=== PATIENT | female | born 1945 | race Caucasian/White ===

== ENCOUNTER → 2016-12-29 | Outpatient (CLI) | payer MEDICARE, BC ==
[2016-12-29 12:49] LABS: CH 29.6; CHCM 31.1; HCT 40.2 % (34.0-46.0); HDW 2.67; HGB 13.1 gm/dL (11.4-16.0); Hypochromasia Slight; MCH 31.1 pg (25.0-35.0); MCHC 32.5 g/dL (31.0-37.0); MCV 95.7 fL (80.0-100.0); Mean Platelet Volume 7.7; RDW 13.5 % (11.5-15.5); WBC 9.1 k/uL (3.8-10.6)
== END | disposition home or self-care (01) ==
LOC: LABPAT 11:52
PROVIDERS: ATTEND Otolaryngology
DX: Z01.812 Encounter for preprocedural laboratory examination (principal)
CPT/HCPCS: 85027

== ENCOUNTER 2016-12-31 08:35 | Day surgery (SDC) | payer MEDICARE, BC ==
[2016-12-30 08:52] VITALS: BMI 25.3
--- NOTE | 2016-12-31 05:53 | HP ---
HISTORY AND PHYSICAL CHIEF COMPLAINT: Cystic lesions of the upper lip. HISTORY OF PRESENT ILLNESS: This patient is a 71-year-old female who presented to my office complaining of several cystic lesions of the upper lip which have been there for approximately 2 months. She states that they are not causing any pain and they have not been bleeding. She is a nonsmoker. At the time that she was seen in my office clinical examination of the oropharynx with attention to the upper lip reveals two 3 to 4 mm cystic lesions of the upper lip near the frenulum. It was recommended that the patient undergo excision of these lesions under general anesthesia. PAST MEDICAL HISTORY: Past medical history reveals that the patient has a known allergy to KEFLEX and IODINE. CURRENT MEDICATIONS: Current medications include: 1. Lexapro. 2. Estradiol. 3. Flexeril. 4. Synthroid. PREVIOUS SURGERIES: Previous surgeries include gastric bypass surgery, revision gastric bypass surgery, amputation of 2 fingers, multiple hand surgeries, cholecystectomy, tummy tuck, hysterectomy, oophorectomy, and duodenal switch. REVIEW OF SYSTEMS: Review of systems reveals that the cardiovascular system is negative. Respiratory system is negative. Gastrointestinal system is negative. Metabolic endocrine system is positive for hypothyroidism. The musculoskeletal/neurological system is positive for osteoarthritis and fibromyalgia. The remainder of the review of systems is unremarkable. PHYSICAL EXAMINATION: This patient is a 71-year-old female, who is alert and cooperative. HEENT EXAMINATION: Patient normocephalic. Tympanic membranes are normal. The middle ear space is free of any fluid or infection. Pupils are equal, round, and reactive to light and accommodation. Extraocular movements are within normal limits. Intranasal examination reveals moderate septal deviation with compensatory hypertrophy of the inferior turbinates. Examination of the oropharynx with attention to the upper lip reveals that the patient has two 3 to 4 mm cystic lesions on the mucosal side of the upper lip located near the frenulum of the upper lip. The remainder of the examination of the oropharynx, palpation on the neck, and cranial nerves 2 [id number] are all within normal limits. CHEST/CARDIOVASCULAR: Both lungs pierson are clear to percussion and auscultation. The patient is in regular sinus rhythm. S1 and S2, are present without evidence of any murmurs, S3s or S4s. Peripheral pulses are bilaterally symmetrical and within normal limits. ABDOMEN: There is no evidence of any masses, megaly or tenderness of the abdomen. Musculoskeletal/neurological are within normal limits. PELVIC/RECTAL EXAM: The pelvic rectal exam is deferred at this time because the patient has this done on a regular basis at her family physician's office. The remainder of the physical exam is essentially unremarkable. IMPRESSION: Impression is 3 to 4 mm cystic lesions of the mucous membrane side of the upper lip. PLAN: The patient is scheduled to undergo excision of cystic lesions of the mucous membrane of the upper lip under general anesthesia in the a.m. ATTENTION RNS IN THE PRE-SURGICAL AREA: I have not ordered any pre-surgical prophylactic antibiotics for this patient. If the pharmacy department since any pre-surgical prophylactic antibiotics to the presurgical area for this patient, they should be returned to the pharmacy department and that order should be cancelled. Please make sure that the patient's account is credited appropriately. The only medications that I have ordered for this patient to receive preoperatively is OFIRMEV 1000 mg IV to be given to the patient once an intravenous line had been established. I have discussed the risks, benefits and alternative therapies for the above-mentioned procedure and for both sedation/analgesia as well as necessary blood product administration, if indicated, as they pertain to this patient. The patient has indicated his or her understanding and acceptance of the risks and procedures discussed. MMODL / IJN: [id number] /
[~2016-12-31 08:35] MED LIST: LACTATED RINGERS 1,000 ML IV SCH; MIDAZOLAM 2 MG/2 ML VIAL IV PRN; Pre Op ABX Message 1 EACH MISC MISCELLANE ONE
[2016-12-31] MEDS ORDERED: LIDOCAINE 1% 20 ML VIAL (10MG/ML) FOR IV START INTRADERMA ONE (09:10)
[2016-12-31] MEDS ORDERED: ONDANSETRON 4 MG/2 ML VIAL IVP ONE (09:12)
[2016-12-31] MEDS ORDERED: DEXAMETHASONE SOD PHOSPHATE 10 MG/ML 1 ML VIAL IV ONE (09:14)
[2016-12-31] MEDS ORDERED: ACETAMINOPHEN IV (For NPO) 1,000 MG in EMPTY BAG 1 BAG IVPB ONE (09:45)
[2016-12-31] MEDS ORDERED: ePHEDrine SULFATE/0.9% NACL/PF 50 MG/5 ML SYRINGE IV ONE (10:19)
[2016-12-31] MEDS ORDERED: fentaNYL (PF) 50 MCG/ML 2 ML AMP ONE (10:19)
[2016-12-31] MEDS ORDERED: PROPOFOL 10 MG/ML 20 ML VIAL IV ONE (10:19)
[2016-12-31] MEDS ORDERED: SUCCINYLCHOLINE CHLORIDE 100 MG/5 ML SYR IV ONE (10:19)
[2016-12-31] MEDS ORDERED: MIDAZOLAM 2 MG/2 ML VIAL ONE (10:19)
[2016-12-31] MEDS ORDERED: LIDOCAINE 1% INJ 10MG/ML (20 ML MDV) ONE (10:19)
[2016-12-31] MEDS: HYDROmorphone 1 MG/ML 1 ML SYRINGE IVP PRN ×2 (11:33→11:43)
[2016-12-31 11:45] VITALS: TEMP 98.2
--- NOTE | 2016-12-31 11:45 | HP ---
HISTORY AND PHYSICAL CHIEF COMPLAINT: Cystic lesions of the upper lip. HISTORY OF PRESENT ILLNESS: This patient is a 71-year-old female who recently presented to my office complaining of having suspicious lesions of the upper lip which have been present for approximately 2 months. The patient states that the area is not causing any pain and there has not been any bleeding. She is a nonsmoker. At the time that the patient was seen in my office, examination of the oropharynx with attention to the upper lip reveals the patient who has 2 cystic-appearing lesions of the mucous membrane of the upper lip near the frenulum of the upper lip. It was recommended that the patient undergo excision of these lesions under general anesthesia. PAST MEDICAL HISTORY: Reveals that the patient has allergies to KEFLEX and IODINE. CURRENT MEDICATIONS: 1. Lexapro. 2. Estradiol. 3. Flexeril. 4. Synthroid. PREVIOUS SURGERIES: Include a gastric bypass, amputation of 2 fingers, multiple hand surgeries, gallbladder removal, revision of gastric bypass, tummy tuck, hysterectomy, oophorectomy, and duodenal switch. REVIEW OF SYSTEMS: Negative for the cardiovascular system. Respiratory system is negative. Gastrointestinal system is negative, metabolic endocrine system is positive for hypothyroidism. Musculoskeletal/neurological system is positive for osteoarthritis and fibromyalgia. The remainder of the review of systems is essentially unremarkable. PHYSICAL EXAM: HEENT: Patient is normocephalic. Tympanic membranes are normal. The middle ear spaces are free of any fluid or infection. Pupils are equal, round, and reactive to light and accommodation. Extraocular movements are within normal limits. Intranasal examination reveals moderate septal deviation with compensatory hypertrophy of the inferior turbinates. Examination of the oropharynx, palpation of the neck and cranial nerves 2 through 12, all within normal limits. CHEST/CARDIOVASCULAR: Both lung pierson are clear to percussion and auscultation. The patient is in regular sinus rhythm. S1 and S2 are present without evidence of any murmurs, S3s or S4s. Peripheral pulses are bilaterally symmetrical. ABDOMEN: There is no evidence of any masses, megaly or tenderness. Musculoskeletal and neurological are within normal limits. PELVIC/RECTAL EXAM: The pelvic/rectal exam is deferred at this time because the patient has this done on a regular basis at her family physician's office. The remainder of the physical exam is unremarkable. IMPRESSION: Cystic lesions of the mucosal side of the upper lip. PLAN: The patient is scheduled to undergo complete excision of the cystic lesions of the mucosal side of the upper lip under general anesthesia. Attention RNs in pre-surgical area, I have not ordered any pre-surgical prophylactic antibiotics for this patient. If the Pharmacy Department sends any pre-surgical prophylactic antibiotics for this patient to the to the presurgical area, please cancel that order, and return the medication to the Pharmacy Department and make sure that the patient's account is credited appropriately. The only medications that I have ordered for this patient to receive preoperatively is Ofirmev 1000 mg IV once an intravenous line had been established. I have discussed the risks, benefits and alternative therapies for the above-mentioned procedure and for both sedation/analgesia as well as necessary blood product administration, if indicated, as they pertain to this patient. The patient has indicated his or her understanding and acceptance of the risks and procedures discussed. LORENE / KAIN: [id number] /
[2016-12-31] MEDS ORDERED: HYDROmorphone 1 MG/ML 1 ML SYRINGE IVP ONE (12:03)
[2016-12-31] MEDS ORDERED: LACTATED RINGERS 1,000 ML IV ONE (12:17)
[2016-12-31 12:41] VITALS: BP 138/69; PULSE 78; RESP 16
--- NOTE | 2017-01-02 18:07 | OP ---
OPERATIVE REPORT DATE OF SURGERY: 12/31/2016 PREOPERATIVE DIAGNOSIS: Cystic lesions of the upper lip, one lesion 3-4 mm, second lesion approximately 3 mm. POSTOPERATIVE DIAGNOSIS: Cystic lesions of the upper lip, one lesion 3-4 mm, second lesion approximate 3 mm. Final pathology pending. ANESTHESIA: Anesthesia was general. OPERATIVE PROCEDURE: Excision of two cystic lesions of the upper lip. SURGEON: Dr. Arturo Peña. COMPLICATIONS: None. ESTIMATED BLOOD LOSS: Less than 5 mL. OPERATIVE PROCEDURE: Patient was placed on the operating table in supine position and after an uneventful induction endotracheal intubation satisfactory general anesthesia was obtained. It was elected not to inject the lesion site with any type of local anesthesia because of concern of the patient possibly biting her lip after surgery. Therefore, the patient was placed on the operating table in supine position. After uneventful induction and endotracheal intubation, satisfactory general anesthesia was obtained. Next the patient's upper lip was exposed in the usual and customary fashion and attention was redirected toward the larger lesion which was 3-4 mm and located just to the right of the frenulum of the upper lip. This area was excised in an elliptical fashion using a #64 [place] blade. The entire specimen was sent in formalin to pathology for permanent sectioning. Hemostasis was obtained using electrocautery. The wound defect was closed in a simple fashion and single layer using 5-0 rapid absorbing Vicryl in an interrupted buried fashion. Next, the same procedure was carried out on the inferior lesion which was approximately 3 mm in diameter and again using an elliptical fashion and a #69 [place] blade, the lesion was excised completely and was sent to the pathology department in formalin for study. Hemostasis again was obtained using electrocautery. Once again the wound defect was closed using 5-0 rapid absorbing Vicryl in a single interrupted flare. At this point, procedure was terminated. There were no intraoperative complications. Estimated blood loss less than 5 mL. The patient tolerated the procedure well and was returned to recovery room in satisfactory condition. Final pathology is pending. MMODL / IJN: [id number] /
== END 2016-12-31 12:55 | disposition home or self-care (01) ==
LOC: OR 08:35
PROVIDERS: ATTEND Otolaryngology
DX: K13.0 Diseases of lips (principal); E03.9 Hypothyroidism, unspecified; M79.7 Fibromyalgia; M19.90 Unspecified osteoarthritis, unspecified site; M06.9 Rheumatoid arthritis, unspecified; Z79.899 Other long term (current) drug therapy; Z88.1 Allergy status to other antibiotic agents; Z88.8 Allergy status to other drugs, medicaments and biological substances; Z98.84 Bariatric surgery status; Z89.029 Acquired absence of unspecified finger(s); Z90.710 Acquired absence of both cervix and uterus
CPT/HCPCS: 88305; 11440 ×2; J2250; J1100; J2405; J2001; J3010; J1170; J0131; J0330; J2704

== ENCOUNTER 2021-06-07 04:21 | Inpatient (IN) | payer BC, MEDICARE ==
[2021-06-07] MEDS ORDERED: SODIUM CHLORIDE 0.9% 1,000 ML IV STA (04:31)
[2021-06-07] MEDS ORDERED: HEPARIN SODIUM 1,000 UN/ML (10ML VL) IV ONE (04:41)
[2021-06-07] MEDS ORDERED: HEPARIN SODIUM 1,000 UN/ML (10ML VL) IV PRN (04:41)
[2021-06-07] MEDS ORDERED: MIDAZOLAM 1 MG/ML 5 ML VIAL IV STA (04:41)
[2021-06-07] MEDS: HEPARIN SOD,PORK IN 0.45% NACL 25,000 UNIT in 0.45% NACL 1 250ML.BAG IV SCH (04:51)
--- NOTE | 2021-06-07 04:57 | ED ---
General Adult HPI - General Chief complaint: Arrhythmia/Palpitations Stated complaint: Weakness Time Seen by Provider: 06/07/21 04:30 Source: patient, EMS Mode of arrival: EMS Limitations: no limitations - History of Present Illness Initial comments: Dictation was produced using [employer] dictation software. please excuse any grammatical, word or spelling errors. Chief Complaint: 75-year-old female past medical history of fibromyalgia, rheumatoid arthritis, osteoarthritis, gastric bypass with malabsorption syndrome presents emergency department for multiple episodes of syncope and chest pain. History of Present Illness: 75-year-old female she woke up with palpitations and chest pain. Patient states she walked to the bathroom. I'll try to ambulate she syncopized. She got up to try to move around the house when she syncopized on 2 separate occasions. Patient states that she does feel palpitations. She's been phoned unwell for the last 7 days. Denies any nausea or vomiting. She does not have any cardiac issues. She does not take any cardiac medications. She took a Flexeril last night she is prescribed Flexeril. States the pain is like a pressure to her anterior chest. His nonradiating. Feels a little clammy but denies any nausea. Patient states she has diarrhea constantly. Denies any black stools. No history of GI bleed or intracranial hemorrhage. No history of blood clots EMS brought the patient is concern for V. tach given their EKG machine interpretation. Local heart pressure for EMS. The ROS documented in this emergency department record has been reviewed and confirmed by me. Those systems with pertinent positive or negative responses have been documented in the HPI. All other systems are other negative and/or noncontributory. PHYSICAL EXAM: General Impression: Alert and oriented x3, lethargic HEENT: Normocephalic atraumatic, extra-ocular movements intact, pupils equal and reactive to light bilaterally, dry mucous membranes Cardiovascular: Irregularly irregular Chest: Able to complete full sentences, no retractions, no tachypnea Abdomen: abdomen soft, non-tender, non-distended, no organomegaly Musculoskeletal: Pulses present and equal in all extremities, no peripheral edema Motor: no focal deficits noted Neurological: CN II-XII grossly intact, no focal motor or sensory deficits noted Skin: Intact with no visualized rashes Psych: Normal affect and mood ED course: 75-year-old female presents emergency with palpitations, chest pain. She denies any cardiac history. Vital signs upon arrival are within acceptable limits however repeat vital signs shows heart rate of 165. Blood pressure 88/69. EKG shows A. fib with aberrancy. There is appear to be an irregularity with widening QRS. There is no old EKG for comparison. Patient is having active chest pain, hypertension and is ill-appearing. Carrdioversion indicated. Cardioversion was performed successful. Patient was cardioverted with 50 J synchronized repeat EKG shows sinus rhythm with axis. Clinically patient appears to be significantly improved. She states that her chest pain is improving. She was started on heparin. EKG interpretation: Ventricular rate 64, A. fib with RVR versus short runs of ventricular tachycardia. QRS 117, QTc 382 Repeat EKG after cardioversion shows sinus rhythm with a ventricular rate of 95, DE interval of 209, QRS 108, QTc 436 To evaluation obtained. Mild leukocytosis of 11.4 likely secondary to stress. Coag panel is unremarkable. Metabolic panel shows mild non-gap acidosis. Lactic acidosis 2.5. Troponin 0.095. Brain natruretic peptide of 1040. This is likely secondary to rate induced ischemia. Patient given 324 mg of chewable aspirin.. Evaluated bedside at 5:41 AM. She does have some pain over her left lateral ribs. She suspects that this is from the fall. She denies any head pain or neck pain. sHe does not recall falling. She states that there is a slight heaviness to her chest. Repeat EKG was performed showing no signs of active ischemia or infarction. She is on heparin. Case discussed cardiology who recommends the patient be started on amiodarone. Patient be admitted to [facility] hospitalist group. - Related Data Home Medications Medication Instructions Recorded Confirmed Cyanocobalamin [Vitamin B-12 1,000 mcg SQ Q14D 12/30/16 06/07/21 Injection] Cyclobenzaprine [Flexeril] 10 mg PO HS 12/30/16 06/07/21 Ergocalciferol (Vitamin D2) 100,000 unit PO MOFR 12/30/16 06/07/21 [Vitamin D2] Escitalopram [Lexapro] 20 mg PO DAILY 12/30/16 06/07/21 Fantasma Denney B.lactis 1 cap PO DAILY 12/30/16 06/07/21 [Probiotic] Levothyroxine Sodium [Synthroid] 25 mcg PO DAILY 12/30/16 06/07/21 Magnesium 200 mg PO DAILY PRN 12/30/16 06/07/21 Super Enzyme 1 tab PO DAILY 12/30/16 06/07/21 estradioL [Estrace] 1 mg PO DAILY 12/30/16 06/07/21 Cholecalciferol [Vitamin D3 (25 25 mcg PO DAILY 06/07/21 06/07/21 Mcg = 1000 Iu)] Vitamin A Acetate [Vitamin A] 10,000 units PO DAILY 06/07/21 06/07/21 calcitrioL [Calcitriol] 0.5 mcg PO BID 06/07/21 06/07/21 Previous Rx's Medication Instructions Recorded Amiodarone [Cordarone] 200 mg PO DAILY 30 Days #30 tab 06/08/21 Apixaban [Eliquis] 5 mg PO BID 30 Days #60 tab 06/08/21 Metoprolol Tartrate [Lopressor] 25 mg PO BID 30 Days #60 tab 06/08/21 Allergies Allergy/AdvReac Type Severity Reaction Status Date / Time cephalexin [From Keflex] AdvReac Rash/Hives Verified 06/07/21 07:26 iodine AdvReac Rash/Hives Verified 06/07/21 07:26 shellfish derived [Shellfish] AdvReac Rash/Hives Verified 06/07/21 07:26 Review of Systems ROS Statement: Those systems with pertinent positive or pertinent negative responses have been documented in the HPI. ROS Other: All systems not noted in ROS Statement are negative. Past Medical History Past Medical History: Cancer, Fibromyalgia, Osteoarthritis (OA), Rheumatoid Arthritis (RA), Thyroid Disorder Additional Past Medical History / Comment(s): Cervical CA years ago; Osteoporosis History of Any Multi-Drug Resistant Organisms: MRSA Date of last positivie culture/infection: 2007 MDRO Source:: R index finger L baby finger Past Surgical History: Appendectomy, Bariatric Surgery, Cholecystectomy, Hysterectomy, Joint Replacement, Orthopedic Surgery, Tonsillectomy Additional Past Surgical History / Comment(s): Gastric Bypass, & revision; Duodenal Swicth; Tummy Tuck, numerous hand surgeries; finger joints replaced, 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 waking up Past Psychological History: Depression Smoking Status: Never smoker Past Alcohol Use History: Rare Past Drug Use History: None Reported - Past Family History Father Family Medical History: Cancer General Exam Limitations: no limitations Course Vital Signs 06/07/21 06/07/21 06/07/21 04:27 04:35 04:50 Temperature 97.9 F Pulse Rate 70 165 H 86 Respiratory 22 22 16 Rate Blood Pressure 124/94 88/69 111/53 O2 Sat by Pulse 98 97 100 Oximetry 06/07/21 06/07/21 06/07/21 05:43 06:35 07:45 Temperature Pulse Rate 79 79 79 Respiratory 18 18 18 Rate Blood Pressure 129/66 109/76 108/63 O2 Sat by Pulse 100 94 L 99 Oximetry Medical Decision Making - Lab Data Result diagrams: 06/08/21 07:44 06/08/21 07:44 Lab Results 06/07/21 06/07/21 06/07/21 Range/Units 04:30 04:30 04:30 WBC 11.4 H (3.8-10.6) k/uL RBC 4.07 (3.80-5.40) m/uL Hgb 12.2 (11.4-16.0) gm/dL Hct 39.0 (34.0-46.0) % MCV 95.7 (80.0-100.0) fL MCH 29.9 (25.0-35.0) pg MCHC 31.2 (31.0-37.0) g/dL RDW 13.6 (11.5-15.5) % Plt Count 226 (150-450) k/uL MPV 8.8 Neutrophils % 65 % Lymphocytes % 25 % Monocytes % 5 % Eosinophils % 3 % Basophils % 1 % Neutrophils # 7.4 (1.3-7.7) k/uL Lymphocytes # 2.9 (1.0-4.8) k/uL Monocytes # 0.5 (0-1.0) k/uL Eosinophils # 0.3 (0-0.7) k/uL Basophils # 0.1 (0-0.2) k/uL Hypochromasia Slight PT 10.9 (9.0-12.0) sec INR 1.0 (<1.2) APTT 20.7 L (22.0-30.0) sec Sodium 141 (137-145) mmol/L Potassium 4.0 (3.5-5.1) mmol/L Chloride 110 H (98-107) mmol/L Carbon Dioxide 21 L (22-30) mmol/L Anion Gap 10 mmol/L BUN 17 (7-17) mg/dL Creatinine 0.78 (0.52-1.04) mg/dL Est GFR (CKD-EPI)AfAm 87 (>60 ml/min/1.73 sqM) Est GFR (CKD-EPI)NonAf 75 (>60 ml/min/1.73 sqM) Glucose 107 H (74-99) mg/dL Lactic Ac Sepsis Rflx Plasma Lactic Acid Rigoberto (0.7-2.0) mmol/L Calcium 8.5 (8.4-10.2) mg/dL Magnesium 1.6 (1.6-2.3) mg/dL Total Bilirubin 0.6 (0.2-1.3) mg/dL AST 32 (14-36) U/L ALT 15 (4-34) U/L Alkaline Phosphatase 53 (38-126) U/L Troponin I (0.000-0.034) ng/mL NT-Pro-B Natriuret Pep pg/mL Total Protein 6.3 (6.3-8.2) g/dL Albumin 3.6 (3.5-5.0) g/dL Coronavirus (PCR) (Not Detectd) 06/07/21 06/07/21 06/07/21 Range/Units 04:30 04:30 04:30 WBC (3.8-10.6) k/uL RBC (3.80-5.40) m/uL Hgb (11.4-16.0) gm/dL Hct (34.0-46.0) % MCV (80.0-100.0) fL MCH (25.0-35.0) pg MCHC (31.0-37.0) g/dL RDW (11.5-15.5) % Plt Count (150-450) k/uL MPV Neutrophils % % Lymphocytes % % Monocytes % % Eosinophils % % Basophils % % Neutrophils # (1.3-7.7) k/uL Lymphocytes # (1.0-4.8) k/uL Monocytes # (0-1.0) k/uL Eosinophils # (0-0.7) k/uL Basophils # (0-0.2) k/uL Hypochromasia PT (9.0-12.0) sec INR (<1.2) APTT (22.0-30.0) sec Sodium (137-145) mmol/L Potassium (3.5-5.1) mmol/L Chloride (98-107) mmol/L Carbon Dioxide (22-30) mmol/L Anion Gap mmol/L BUN (7-17) mg/dL Creatinine (0.52-1.04) mg/dL Est GFR (CKD-EPI)AfAm (>60 ml/min/1.73 sqM) Est GFR (CKD-EPI)NonAf (>60 ml/min/1.73 sqM) Glucose (74-99) mg/dL Lactic Ac Sepsis Rflx Plasma Lactic Acid Rigoberto 2.5 H* (0.7-2.0) mmol/L Calcium (8.4-10.2) mg/dL Magnesium (1.6-2.3) mg/dL Total Bilirubin (0.2-1.3) mg/dL AST (14-36) U/L ALT (4-34) U/L Alkaline Phosphatase (38-126) U/L Troponin I 0.095 H* (0.000-0.034) ng/mL NT-Pro-B Natriuret Pep 1040 pg/mL Total Protein (6.3-8.2) g/dL Albumin (3.5-5.0) g/dL Coronavirus (PCR) (Not Detectd) 06/07/21 06/07/21 Range/Units 05:15 05:36 WBC (3.8-10.6) k/uL RBC (3.80-5.40) m/uL Hgb (11.4-16.0) gm/dL Hct (34.0-46.0) % MCV (80.0-100.0) fL MCH (25.0-35.0) pg MCHC (31.0-37.0) g/dL RDW (11.5-15.5) % Plt Count (150-450) k/uL MPV Neutrophils % % Lymphocytes % % Monocytes % % Eosinophils % % Basophils % % Neutrophils # (1.3-7.7) k/uL Lymphocytes # (1.0-4.8) k/uL Monocytes # (0-1.0) k/uL Eosinophils # (0-0.7) k/uL Basophils # (0-0.2) k/uL Hypochromasia PT (9.0-12.0) sec INR (<1.2) APTT (22.0-30.0) sec Sodium (137-145) mmol/L Potassium (3.5-5.1) mmol/L Chloride (98-107) mmol/L Carbon Dioxide (22-30) mmol/L Anion Gap mmol/L BUN (7-17) mg/dL Creatinine (0.52-1.04) mg/dL Est GFR (CKD-EPI)AfAm (>60 ml/min/1.73 sqM) Est GFR (CKD-EPI)NonAf (>60 ml/min/1.73 sqM) Glucose (74-99) mg/dL Lactic Ac Sepsis Rflx Y Plasma Lactic Acid Rigoberto (0.7-2.0) mmol/L Calcium (8.4-10.2) mg/dL Magnesium (1.6-2.3) mg/dL Total Bilirubin (0.2-1.3) mg/dL AST (14-36) U/L ALT (4-34) U/L Alkaline Phosphatase (38-126) U/L Troponin I (0.000-0.034) ng/mL NT-Pro-B Natriuret Pep pg/mL Total Protein (6.3-8.2) g/dL Albumin (3.5-5.0) g/dL Coronavirus (PCR) Not Detected (Not Detectd) Critical Care Time Critical Care Time: Yes Total Critical Care Time: 33 Disposition Clinical Impression: Syncope, Tachyarrhythmia Disposition: ADMITTED IP TO THIS [facility] Condition: Critical
[2021-06-07 05:03] LABS: Basophils # (A) 0.1 k/uL (0-0.2); Basophils % (A) 1 %; Eosinophils # (A) 0.3 k/uL (0-0.7); Eosinophils % (A) 3 %; HGB 12.2 gm/dL (11.4-16.0); Hypochromasia Slight; Lymphocytes # (A) 2.9 k/uL (1.0-4.8); Lymphocytes % (A) 25 %; MCH 29.9 pg (25.0-35.0); MCHC 31.2 g/dL (31.0-37.0); MCV 95.7 fL (80.0-100.0); Mean Platelet Volume 8.8; Monocytes # (A) 0.5 k/uL (0-1.0); Monocytes % (A) 5 %; Neutrophils # (A) 7.4 k/uL (1.3-7.7); Neutrophils % (A) 65 %; Platelet Count 226 k/uL (150-450); RBC 4.07 m/uL (3.80-5.40); RDW 13.6 % (11.5-15.5); WBC 11.4 k/uL (3.8-10.6)
[2021-06-07 05:17] LABS: Albumin 3.6 g/dL (3.5-5.0); Calcium 8.5 mg/dL (8.4-10.2); Magnesium 1.6 mg/dL (1.6-2.3); Total Bilirubin 0.6 mg/dL (0.2-1.3); Total Protein 6.3 g/dL (6.3-8.2)
[2021-06-07 05:18] LABS: Partial Thromboplastin Time 20.7 sec (22.0-30.0); Prothrombin Time 10.9 sec (9.0-12.0)
--- NOTE | 2021-06-07 05:25 | XR ---
EXAMINATION TYPE: XR chest 1V portable DATE OF EXAM: 06/07/2021 COMPARISON: NONE HISTORY: Syncope TECHNIQUE: Single view FINDINGS: There is no failure nor confluent pneumonic infiltrate. Costophrenic angles are clear. Bony thorax is intact. There are chest leads. There is slight increased interstitial markings. IMPRESSION: Mild pulmonary fibrosis. Normal heart. No acute lung disease.
[2021-06-07] MEDS ORDERED: ASPIRIN 81 MG PO STA (05:36)
[2021-06-07] MEDS ORDERED: ONDANSETRON 4 MG/2 ML VIAL IVP PRN (05:43)
[2021-06-07] MEDS ORDERED: NALOXONE 0.4 MG/ML 1 ML VIAL IV PRN (05:43)
[2021-06-07] MEDS ORDERED: DEXTROSE 5% IN WATER 100 ML with AMIODARONE 150 MG IV ONE (05:45)
[2021-06-07] MEDS ORDERED: SODIUM CHLORIDE 0.9% 1,000 ML IV SCH (05:45)
[2021-06-07] MEDS ORDERED: AMIODARONE 360 MG in DEXTROSE 5% IN WATER 200 ML IV ONE ×2 (05:54)
[2021-06-07] MEDS ORDERED: AMIODARONE IN DEXTROSE,ISO-OSM 150 MG/100 ML PLAST..BAG IV ONE (06:01)
--- NOTE | 2021-06-07 06:41 | CT ---
EXAMINATION TYPE: CT brain cspine wo con DATE OF EXAM: 06/07/2021 COMPARISON: None HISTORY: fall CT DLP: 1405.1 mGycm Automated exposure control for dose reduction was used. Exam performed with no contrast. Ventricles have normal size. There is no mass effect or midline shift. There is no sign of intracrani al hemorrhage. The calvarium is intact. There is no evidence of cerebral edema. Skull base is intact. There is normal aeration of the mastoid sinuses. Cervical vertebra have fairly normal alignment. There is mild degenerative disc space narrowing throu ghout the cervical spine. Facet joints are intact. There is mild spurring of the endplates. Preverteb ral soft tissues are intact. There is no compression fracture. IMPRESSION: Cervical multilevel spondylotic changes. No fracture. Negative CT scan of the brain. No evidence of traumatic injury.
--- NOTE | 2021-06-07 06:43 | XR ---
EXAMINATION TYPE: XR ribs LT DATE OF EXAM: 06/07/2021 COMPARISON: NONE HISTORY: Rib pain. Fall. TECHNIQUE: 2 views FINDINGS: There is no pleural effusion or pneumothorax. Left lung is clear of infiltrate. There is no evidence of a rib fracture. Costophrenic angle is clear. IMPRESSION: Negative left rib exam. No fracture.
[2021-06-07] MEDS ORDERED: PANTOPRAZOLE 40 MG/10 ML VIAL IV SCH (09:00)
[2021-06-07] MEDS ORDERED: FAMOTIDINE 20 MG/2 ML VIAL IV SCH (09:00)
--- NOTE | 2021-06-07 10:35 | P.HPIM ---
History of Present Illness This is a pleasant 75 years old female with past medical history of Fibromyalgia, Osteoarthritis , Rheumatoid Arthritis , Cervical CA years ago; Osteoporosis, hypothyroidism Presents because of syncope, recurrent about 3 times Patient woke up to 3:00 in the morning feeling with little chest pain and diffic ulty breathing, she went to the restroom but she fell on her way and passed out, and this happened for a second time after she woke up. After finishing her toileting she had another episode of syncope and she was on the floor for about an hour before her find her and called the ambulance for her. She stated that she fell on her knees and on her left side but currently she does not complain of from any pain and tenderness. Her chest pain was about 7/10, central nonradiating, felt like heaviness Patient has chronic diarrhea after gastric bypass surgeries in 1994. She denies any dysuria or urgency. She has mild headache 1 week , she denies limb weakness or numbness. However she feels generally weak. She denies smoking, alcohol or illicit drugs She was slightly hypotensive in the emergency room 88/69, currently blood pressure 109/76. Patient is afebrile. Labs showing mild leukocytosis (0.4, INR is 1.0, electrolytes and creatinine are normal. Lactic acid is elevated 2.5, glucose is slightly up 107. Liver enzymes normal. Elevated troponin 0.09. ProBNP 1040. Coronavirus DICTATED. Chest x-ray: No acute process. Mild pulmonary fibrosis. She had negative CT of the brain for traumatic injury or acute process. And CT of the cervical spine showed multilevel spondylitic changes with no fracture. rib X-ray: No fracture Patient in ED was having active chest pain, hypertension and is ill-appearing. Carrdioversion indicated. Cardioversion was performed successful. Patient was cardioverted with 50 J synchronized repeat EKG shows sinus rhythm with axis. Clinically patient appears to be significantly improved. She states that her chest pain is improving. She was started on heparin. EKG interpretation: Ventricular rate 64, A. fib with RVR versus short runs of ventricular tachycardia. QRS 117, QTc 382 Repeat EKG after cardioversion shows sinus rhythm with a ventricular rate of 95, UT interval of 209, QRS 108, QTc 436 She received normal saline, started on heparin drip and amiodarone drip per Rn Cardiovascular recommendation Review of Systems CONSTITUTIONAL: No fever, no malaise, no fatigue. HEENT: No recent visual problems or hearing problems. Denied any sore throat. CARDIOVASCULAR: No orthopnea, PND, no palpitations, no syncope. PULMONARY: No shortness of breath, no cough, no hemoptysis. GASTROINTESTINAL: No diarrhea, no nausea, no vomiting, no abdominal pain. Normoactive bowel sounds. NEUROLOGICAL: No headaches, no weakness, no numbness. HEMATOLOGICAL: Denies any bleeding or petechiae. GENITOURINARY: Denies any burning micturition, frequency, or urgency. MUSCULOSKELETAL/RHEUMATOLOGICAL: Denies any joint pain, swelling, or any muscle pain. ENDOCRINE: Denies any polyuria or polydipsia. Past Medical History Past Medical History: Cancer, Fibromyalgia, Osteoarthritis (OA), Rheumatoid Arthritis (RA), Thyroid Disorder Additional Past Medical History / Comment(s): Cervical CA years ago; Osteoporosis History of Any Multi-Drug Resistant Organisms: MRSA Date of last positivie culture/infection: 2007 MDRO Source:: R index finger L baby finger Past Surgical History: Appendectomy, Bariatric Surgery, Cholecystectomy, Hysterectomy, Joint Replacement, Orthopedic Surgery, Tonsillectomy Additional Past Surgical History / Comment(s): Gastric Bypass, & revision; Duodenal Swicth; Tummy Tuck, numerous hand surgeries; finger joints replaced, 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 waking up Past Psychological History: Depression Smoking Status: Never smoker Past Alcohol Use History: Rare Past Drug Use History: None Reported - Past Family History Father Family Medical History: Cancer Medications and Allergies Home Medications Medication Instructions Recorded Confirmed Type Cyanocobalamin [Vitamin B-12 1,000 mcg SQ Q14D 12/30/16 06/07/21 History Injection] Cyclobenzaprine [Flexeril] 10 mg PO HS 12/30/16 06/07/21 History Ergocalciferol (Vitamin D2) 100,000 unit PO MOFR 12/30/16 06/07/21 History [Vitamin D2] Escitalopram [Lexapro] 20 mg PO DAILY 12/30/16 06/07/21 History L.acidoph,Paracasei, B.lactis 1 cap PO DAILY 12/30/16 06/07/21 History [Probiotic] Levothyroxine Sodium [Synthroid] 25 mcg PO DAILY 12/30/16 06/07/21 History Magnesium 200 mg PO DAILY PRN 12/30/16 06/07/21 History Super Enzyme 1 tab PO DAILY 12/30/16 06/07/21 History estradioL [Estrace] 1 mg PO DAILY 12/30/16 06/07/21 History Cholecalciferol [Vitamin D3 (25 25 mcg PO DAILY 06/07/21 06/07/21 History Mcg = 1000 Iu)] Vitamin A Acetate [Vitamin A] 10,000 units PO DAILY 06/07/21 06/07/21 History calcitrioL [Calcitriol] 0.5 mcg PO BID 06/07/21 06/07/21 History Allergies Allergy/AdvReac Type Severity Reaction Status Date / Time cephalexin [From Keflex] AdvReac Rash/Hives Verified 06/07/21 07:26 iodine AdvReac Rash/Hives Verified 06/07/21 07:26 shellfish derived [Shellfish] AdvReac Rash/Hives Verified 06/07/21 07:26 Physical Exam Vitals: Vital Signs Temp Pulse Resp BP Pulse Ox 06/07/21 06:35 79 18 109/76 94 L 06/07/21 05:43 79 18 129/66 100 06/07/21 04:50 86 16 111/53 100 06/07/21 04:35 165 H 22 88/69 97 06/07/21 04:27 97.9 F 70 22 124/94 98 Intake and Output 06/06/21 06/07/21 06/07/21 22:59 06:59 14:59 Other: Weight 56.699 kg -GENERAL: The patient is alert and oriented x3, not in any acute distress. Well developed, well nourished. Generally weak HEENT: Pupils are round and equally reacting to light. EOMI. No scleral icterus. No conjunctival pallor. Normocephalic, atraumatic. No pharyngeal erythema. No thyromegaly. CARDIOVASCULAR: S1 and S2 present. No murmurs, rubs, or gallops. PULMONARY: Chest is clear to auscultation, no wheezing or crackles. ABDOMEN: Soft, nontender, nondistended, normoactive bowel sounds. No palpable organomegaly. MUSCULOSKELETAL: No joint swelling or deformity. EXTREMITIES: No cyanosis, clubbing, or pedal edema. NEUROLOGICAL: Gross neurological examination did not reveal any focal deficits. SKIN: No rashes. No petechiae Results CBC & Chem 7: 06/07/21 04:30 06/07/21 04:30 Labs: Abnormal Lab Results - Last 24 Hours (Table) 06/07/21 06/07/21 06/07/21 Range/Units 04:30 04:30 04:30 WBC 11.4 H (3.8-10.6) k/uL APTT 20.7 L (22.0-30.0) sec Chloride 110 H (98-107) mmol/L Carbon Dioxide 21 L (22-30) mmol/L Glucose 107 H (74-99) mg/dL Plasma Lactic Acid Rigoberto (0.7-2.0) mmol/L Troponin I (0.000-0.034) ng/mL 06/07/21 06/07/21 Range/Units 04:30 04:30 WBC (3.8-10.6) k/uL APTT (22.0-30.0) sec Chloride (98-107) mmol/L Carbon Dioxide (22-30) mmol/L Glucose (74-99) mg/dL Plasma Lactic Acid Rigoberto 2.5 H* (0.7-2.0) mmol/L Troponin I 0.095 H* (0.000-0.034) ng/mL Assessment and Plan Assessment: Chest pain with elevated troponin suspicious for non-STEMI Short period of A. fib and RVR versus ventricular tachycardia status post cardioversion in the emergency room. History of rheumatoid arthritis History of osteoarthritis History of fibromyalgia History of cervical cancer Osteoporosis Hypothyroidism History of depression, not an active issue Plan: this is a pleasant 75 years old female who presents with non-STEMI, and tachyarrhythmia Continue with amiodarone Continue with heparin drip Start patient on baby aspirin 81 mg, check lipid profile. Cardiology consult Labs and medication were reviewed.. Continue same treatment. Continue with symptomatic treatment. Resume home medication. Monitor lytes and vitals. DVT and GI prophylaxis. Further recommendations depends on the clinical course of the patient DVT prophylaxis: Subcutaneous heparin GI Prophylaxis: Pepcid PT/OT: Pending Prognosis is guarded
[2021-06-07] MEDS: NITROGLYCERIN SL TABS 0.4 MG TAB SUBLINGUAL ONE ×3 (11:04→11:18)
[2021-06-07] MEDS ORDERED: MAGNESIUM OXIDE 400 MG TAB PO PRN (11:19)
[2021-06-07] MEDS: ESCITALOPRAM 20 MG TAB PO SCH (11:33)
[2021-06-07] MEDS ORDERED: NITROGLYCERIN-D5W PMX 50 MG in DEXTROSE/WATER 1 250ML.BAG IV SCH (12:00)
[2021-06-07] MEDS: AMIODARONE 450 MG in DEXTROSE 5% IN WATER 250 ML IV SCH ×2 (12:15)
[2021-06-07] MEDS: METOPROLOL TARTRATE 25 MG TAB PO SCH ×2 (13:26→21:46)
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
[2021-06-07] MEDS ORDERED: ALPRAZolam 0.5 MG TAB PO PRN (14:31)
[2021-06-07] MEDS ORDERED: ASPIRIN 325 MG TAB PO STA (14:31)
[2021-06-07] MEDS ORDERED: ATORVASTATIN 80 MG TAB PO STA (14:31)
[2021-06-07] MEDS ORDERED: SODIUM CHLORIDE 0.9% 1,000 ML in EMPTY BAG 1 BAG IV ONE (14:31)
[2021-06-07] MEDS ORDERED: LIDOCAINE 1% INJ 10MG/ML (20 ML MDV) ONE (14:59)
[2021-06-07] MEDS ORDERED: VERAPAMIL 2.5 MG/ML 2 ML AMP ONE (14:59)
[2021-06-07] MEDS ORDERED: fentaNYL (PF) 50 MCG/ML 2 ML AMP ONE (15:01)
[2021-06-07] MEDS ORDERED: IV FLUID CONTINUATION 1,000 ML IV ONE (15:05)
[2021-06-07] MEDS ORDERED: diphenhydrAMINE 50 MG/ML 1 ML VIAL ONE (15:19)
[2021-06-07] MEDS ORDERED: methylPREDNISolone SOD SUCCI 125 MG/2 ML VIAL ONE (15:23)
[2021-06-07] MEDS ORDERED: methylPREDNISolone SOD SUCCI 125 MG/2 ML VIAL IV ONE (15:25)
[2021-06-07] MEDS ORDERED: diphenhydrAMINE 50 MG/ML 1 ML VIAL IVP ONE (15:26)
[2021-06-07] MEDS ORDERED: fentaNYL (PF) 50 MCG/ML 2 ML AMP IV ONE (15:37)
[2021-06-07] MEDS ORDERED: MIDAZOLAM 2 MG/2 ML VIAL IV ONE (15:37)
[2021-06-07] MEDS ORDERED: LIDOCAINE 1% INJ 10MG/ML (20 ML MDV) SQ ONE (15:40)
[2021-06-07] MEDS ORDERED: VERAPAMIL SYRINGE (5 MG/10 ML) INTRAARTER ONE (15:41)
[2021-06-07] MEDS ORDERED: IOPAMIDOL-370 125ML BTL INJ ONE ×2 (15:52)
--- NOTE | 2021-06-07 16:09 | P.CARDCATH ---
Description of Procedure: PROCEDURES PERFORMED: Left heart catheterization, left ventriculogram, bilateral coronary angiography INDICATION: Non-STEMI CONSENT:I have discussed the risks, benefits and alternative therapies for the above-mentioned procedure and for both sedation/analgesia as well as necessary blood product administration, if indicated, as they pertain to this patient. The patient has indicated understanding and acceptance of the risks and procedures discussed. PROCEDURE: After the risks, benefits and alternatives of the above mentioned p rocedure explained in detail with the patient, informed consent was obtained. Patient was taken to the catheterization lab and prepped and draped in usual fashion. 1% lidocaine was used to anesthetize the right radial artery. A 6- Yemeni sheath was placed in the right radial artery using modified Seldinger technique. Left coronary angiography was performed with a 5-Yemeni JL 3.5 catheter and right coronary angiography was performed with a 5-Yemeni JR5 catheter in various views. A 5-Yemeni FR5 catheter was inserted into the left ventricle and pressure measurements were obtained. A 6-Yemeni angled pigtail catheter was inserted in the left ventricle and a left ventriculogram was performed with power injection in the HARGROVE projection. The right radial sheath was removed and a TR band was placed with hemostasis achieved. The patient tolerated the procedure well. Patient was transported back to the post catheterization holding area in stable condition. Conscious Sedation: Patient was monitored under the direct supervision of vision of myself for conscious sedation using Versed and fentanyl for a total duration of 16 minutes HEMODYNAMICS: Aorta: 124/76 LV: 122/6, LVEDP 17 Left ventriculogram: Normal ejection fraction 60-65%, 1-2+ mitral regurgitation, no significant gradient with pullback across the aortic valve SELECTIVE CORONARY ARTERIOGRAPHY: LEFT MAIN: The left main is a large caliber vessel which bifurcates into the LAD and circumflex. There is no significant stenosis. LEFT ANTERIOR DESCENDING CORONARY ARTERY: LAD is a large caliber vessel which wraps around to the apex. There is no significant stenosis. LEFT CIRCUMFLEX CORONARY ARTERY: Left circumflex is a moderate caliber vessel without significant stenosis. RIGHT CORONARY ARTERY: The right coronary artery is a large caliber vessel which gives off a PDA and PLV branch and is the dominant vessel. There is no significant stenosis. FINAL IMPRESSION: 1. Normal coronary arteries as described above. 2. Normal left sided filling pressures PLAN: 1. Aggressive risk factor modification per most recent ACC/AHA guidelines. 2. Even some of her symptoms of syncope, lightheadedness, new-onset atrial f ibrillation and mildly elevated troponins further workup to rule out pulmonary embolism.
[2021-06-07] MEDS: SODIUM CHLORIDE 0.9% 1,000 ML IV SCH (16:30)
[2021-06-07] MEDS ORDERED: RX INFO: IV CONTRAST WAS GIVEN 1 EACH MISC MISCELLANE PRN (17:27)
[2021-06-07] MEDS ORDERED: CYCLOBENZAPRINE 10 MG TAB PO SCH (21:00)
[2021-06-07] MEDS: ALPRAZolam 0.25 MG TAB PO PRN (21:46)
[2021-06-08] MEDS: AMIODARONE 450 MG in DEXTROSE 5% IN WATER 250 ML IV SCH ×2 (02:59)
[2021-06-08] MEDS: ALPRAZolam 0.25 MG TAB PO PRN (05:03)
[2021-06-08] MEDS: HEPARIN SOD,PORK IN 0.45% NACL 25,000 UNIT in 0.45% NACL 1 250ML.BAG IV SCH (05:16)
[2021-06-08] MEDS ORDERED: LEVOTHYROXINE 25 MCG TAB PO SCH (06:00)
[2021-06-08] MEDS ORDERED: HEPARIN SODIUM,PORCINE 10,000 UNIT in SODIUM CHLORIDE 0.9% 1,000 ML IRRIGATION PRN (07:00)
[2021-06-08] MEDS ORDERED: HEPARIN SODIUM,PORCINE 2,500 UNIT in SODIUM CHLORIDE 0.9% 250 ML IRRIGATION PRN (07:00)
[2021-06-08] MEDS: METOPROLOL TARTRATE 25 MG TAB PO SCH (08:29)
[2021-06-08] MEDS: ESCITALOPRAM 20 MG TAB PO SCH (08:29)
[2021-06-08] MEDS: SODIUM CHLORIDE 0.9% 1,000 ML IV SCH (08:31)
[2021-06-08 08:34] LABS: Basophils % (A) 0 %; Eosinophils % (A) 0 %; HCT 33.9 % (34.0-46.0); HGB 10.7 gm/dL (11.4-16.0); Hypochromasia Slight; Lymphocytes % (A) 27 %; MCH 30.5 pg (25.0-35.0); MCHC 31.6 g/dL (31.0-37.0); MCV 96.6 fL (80.0-100.0); Mean Platelet Volume 8.9; Monocytes # (A) 0.3 k/uL (0-1.0); Monocytes % (A) 4 %; Neutrophils # (A) 4.9 k/uL (1.3-7.7); Neutrophils % (A) 67 %; Platelet Count 167 k/uL (150-450); RBC 3.51 m/uL (3.80-5.40); RDW 14.2 % (11.5-15.5); WBC 7.4 k/uL (3.8-10.6)
[2021-06-08 08:37] LABS: African American GFR (CKD) >90 (>60 ml/min/1.73 sqM); Anion Gap 5 mmol/L; Blood Urea Nitrogen 13 mg/dL (7-17); Carbon Dioxide 18 mmol/L (22-30); Chloride 116 mmol/L (98-107); Glucose 160 mg/dL (74-99); Magnesium 1.7 mg/dL (1.6-2.3); Non-African American GFR(CKD) 86 (>60 ml/min/1.73 sqM); Potassium 3.8 mmol/L (3.5-5.1); Sodium 139 mmol/L (137-145)
[2021-06-08 08:38] VITALS: RESP 18
[2021-06-08 08:38] LABS: Calcium 7.7 mg/dL (8.4-10.2)
[2021-06-08] MEDS ORDERED: VITAMIN A 10,000 UNIT (3000 MCG) CAPSULE PO SCH (09:00)
[2021-06-08] MEDS ORDERED: CHOLECALCIFEROL 25 MCG (1000 IU) TABLET PO SCH (09:00)
[2021-06-08] MEDS ORDERED: AMIODARONE 200 MG TAB PO SCH (09:00)
[2021-06-08] MEDS ORDERED: LACTOBACILLUS ACIDOPH & BULGAR 1 EACH PACKET PO SCH (09:00)
[2021-06-08] MEDS ORDERED: [UNRECOGNIZED DRUG - OTHER] PO SCH (09:00)
[2021-06-08] MEDS ORDERED: FAMOTIDINE 20 MG TAB PO SCH (09:00)
[2021-06-08] MEDS ORDERED: ERGOCALCIFEROL 1,250 MCG (50,000 IU) CAPSULE PO SCH (09:00)
[2021-06-08] MEDS ORDERED: ASPIRIN 81 MG PO SCH (09:00)
[2021-06-08] MEDS ORDERED: APIXABAN 5 MG TAB PO SCH (10:30)
[2021-06-08 11:03] VITALS: BP 150/83; PULSE 65; TEMP 97.6
[2021-06-08] MEDS: MAGNESIUM SULFATE-D5W PMX 1 GM in DEXTROSE/WATER 1 100ML.BAG IVPB SCH ×2 (11:30→12:50)
--- NOTE | 2021-06-08 12:35 | ECHOF ---
Referral Reason: MEASUREMENTS -------- HEIGHT: 154.9 cm WEIGHT: 61.2 kg BP: 112/72 RVIDd: 2.7 cm (< 3.3) IVSd: 1.9 cm (0.6 - 1.1) LVIDd: 2.6 cm (3.9 - 5.3) LVPWd: 1.7 cm (0.6 - 1.1) IVSs: 2.0 cm LVIDs: 2.1 cm LVPWs: 2.0 cm LAESV Index (A-L): 28.62 ml/m Ao Diam: 2.9 cm (2.0 - 3.7) AV Cusp: 1.9 cm (1.5 - 2.6) LA Diam: 3.6 cm (2.7 - 3.8) MV EXCURSION: 9.371 mm (> 18.000) MV EF SLOPE: 31 mm/s (70 - 150) EPSS: 0.1 cm MV E Elieser: 0.83 m/s MV DecT: 156 ms MV A Elieser: 0.68 m/s MV E/A Ratio: 1.22 RAP: 5.00 mmHg RVSP: 37.37 mmHg FINDINGS -------- Sinus rhythm. This was a technically good study. The left ventricular size is normal. There is severe concentric left ventricular hypertrophy. Ove rall left ventricular systolic function is normal with, an EF between 55 - 60 %. The diastolic fill ing pattern is normal for the age of the patient 11.48. The right ventricle is normal in size. Normal LA size by volume 22+/-6 ml/m2. The right atrial size is normal. There is mild aortic valve sclerosis. The mitral valve leaflets are mildly thickened. Moderate mitral regurgitation is present. The tricuspid valve appears structurally normal. Moderate tricuspid regurgitation present. There is mild pulmonary hypertension. The right ventricular systolic pressure, as measured by Doppler, is 37.37mmHg. Trace/mild (physiologic) pulmonic regurgitation. The aortic root size is normal. Normal inferior vena cava with normal inspiratory collapse consistent with estimated right atrial pre ssure of 5 mmHg. There is no pericardial effusion. CONCLUSIONS -------- 1. There is severe concentric left ventricular hypertrophy. 2. Overall left ventricular systolic function is normal with, an EF between 55 - 60 %. 3. The diastolic filling pattern is normal for the age of the patient 11.48 4. Normal LA size by volume 22+/-6 ml/m2. 5. There is mild aortic valve sclerosis. 6. Moderate mitral regurgitation is present. 7. Moderate tricuspid regurgitation present. 8. There is mild pulmonary hypertension. 9. Trace/mild (physiologic) pulmonic regurgitation. 10. There is no pericardial effusion. DATA TYPIST: Pam Garza RDCS
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
--- NOTE | 2021-06-11 08:59 | CDI ---
Documentation Clarification Form Date: 06/11/21 From: Desiree Martinez Admit Date: 06/07/2021 05:43:00 AM Patient Name: Lety Garcia Visit Number: [id number] Discharge Date: 06/08/2021 03:25:00 PM ATTENTION: The Clinical Documentation Specialists (CDI) and [facility] Coding Staff appreciate your assistance in clarifying documentation. Please respond to the clarification below the line at the bottom and electronically sign. The CDI & [facility] Coding staff will review the response and follow-up if needed. Please note: Queries are made part of the Legal Health Record. If you have any questions, please contact the author of this message via ITS. Dr. Calvin Galvan, Non-STEMI myocardial infarction (OH) is documented in the H&P and consult. Additional clarification regarding the type of OH is requested. History/Risk Factors: PAF, pulmonary fibrosis, RA, HTN, hypothyroidism, fibromyalgia, old OH Clinical Indicators: Patient woke up to 3:00 in the morning feeling with little chest pain and difficulty breathing, she went to the restroom but she fell on her way and passed out, and this happened for a second time after she woke up. After finishing her toileting she had another episode of syncope and she was on the floor for about an hour before her find her and called the ambulance for her. Troponin: 0.095, 0.455, 0.834, 0.788 EKG Results: Abnormal EKG with inferior Q waves likely consistent with prior myocardial infarction. LHC results: Normal coronary arteries as described above. Normal left sided filling pressures Treatment: Left heart catheterization, left ventriculogram, bilateral coronary angiography Please clarify the type of OH, if known: [ ] STEMI (type 1) [ x ] NSTEMI (type 1) [ ] Type II OH due to (please specify etiology) [ ] Non-ischemic myocardial injury [ ] Unable to determine [ ] Other Condition, please specify MTDD
[2021-06-15] MEDS ORDERED: CYANOCOBALAMIN 1,000 MCG/ML 1 ML VIAL SQ SCH (09:00)
--- NOTE | 2021-07-05 23:58 | P.DS ---
Providers Date of admission: 06/07/21 05:43 Expected date of discharge: 06/08/21 Attending physician: Calvin Galvan Consults: 06/07/21 11:47 Consult Physician Routine Consulting Provider: Uriah Tapia Consult Reason/Comments: V-tach post cardioversion, nstemi Do you want consulting provider notified?: Yes Primary care physician: Nayla Hidalgo Hospital Course: Discharge diagnosis Chest pain with elevated troponin suspicious for non-STEMI new onset A. fib and RVR versus ventricular tachycardia status post cardioversion in the emergency room. History of rheumatoid arthritis History of osteoarthritis History of fibromyalgia History of cervical cancer Osteoporosis Hypothyroidism History of depression, not an active issue Hospital course This is a pleasant 75 years old female with past medical history of Fibromyalgia, Osteoarthritis , Rheumatoid Arthritis , Cervical CA years ago; Osteoporosis, hypothyroidism Presents because of syncope, recurrent about 3 times Patient woke up to 3:00 in the morning feeling with little chest pain and difficulty breathing, she went to the restroom but she fell on her way and passed out, and this happened for a second time after she woke up. After finishing her toileting she had another episode of syncope and she was on the floor for about an hour before her find her and called the ambulance for her. She stated that she fell on her knees and on her left side but currently she does not complain of from any pain and tenderness. Her chest pain was about 7/10, central nonradiating, felt like heaviness Patient has chronic diarrhea after gastric bypass surgeries in 1994. She denies any dysuria or urgency. She has mild headache 1 week , she denies limb weakness or numbness. However she feels generally weak. She denies smoking, alcohol or illicit drugs She was slightly hypotensive in the emergency room 88/69, currently blood pressure 109/76. Patient is afebrile. Labs showing mild leukocytosis (0.4, INR is 1.0, electrolytes and creatinine are normal. Lactic acid is elevated 2.5, glucose is slightly up 107. Liver enzymes normal. Elevated troponin 0.09. ProBNP 1040. Coronavirus DICTATED. Chest x-ray: No acute process. Mild pulmonary fibrosis. She had negative CT of the brain for traumatic injury or acute process. And CT of the cervical spine showed multilevel spondylitic changes with no fracture. rib X-ray: No fracture Patient in ED was having active chest pain, hypertension and is ill-appearing. Carrdioversion indicated. Cardioversion was performed successful. Patient was cardioverted with 50 J synchronized repeat EKG shows sinus rhythm with axis. Clinically patient appears to be significantly improved. She states that her chest pain is improving. She was started on heparin. EKG interpretation: Ventricular rate 64, A. fib with RVR versus short runs of ventricular tachycardia. QRS 117, QTc 382 Repeat EKG after cardioversion shows sinus rhythm with a ventricular rate of 95, [place] interval of 209, QRS 108, QTc 436 She received normal saline, started on heparin drip and amiodarone drip per [employer] recommendation 06/08/2021 Patient is currently resting in bed. Awake alert and oriented x3. No complaints of chest pain or tightness. No shortness of breath. No headache or dizziness or lightheadedness. No palpitations. Able to ambulate in her room. Maintaining sinus rhythm. IV heparin has been discontinued and started on Eliquis 5 mg twice daily. A Medrol dose changed to by mouth and continue with metoprolol. Patient is maintaining sinus rhythm currently. Request to follow-up with cardiology in the clinic as an outpatient. Patient did improve symptomatically and is being discharged home today. -GENERAL: The patient is alert and oriented x3, not in any acute distress. Well developed, well nourished. Generally weak HEENT: Pupils are round and equally reacting to light. EOMI. No scleral icterus. No conjunctival pallor. Normocephalic, atraumatic. No pharyngeal erythema. No thyromegaly. CARDIOVASCULAR: S1 and S2 present. No murmurs, rubs, or gallops. PULMONARY: Chest is clear to auscultation, no wheezing or crackles. ABDOMEN: Soft, nontender, nondistended, normoactive bowel sounds. No palpable organomegaly. MUSCULOSKELETAL: No joint swelling or deformity. EXTREMITIES: No cyanosis, clubbing, or pedal edema. NEUROLOGICAL: Gross neurological examination did not reveal any focal deficits. SKIN: No rashes. No petechiae Vital signs: Vital Signs Temp 97.6 F 06/08/21 11:02 Pulse 65 06/08/21 11:02 Resp 18 06/08/21 11:02 BP 150/83 06/08/21 11:02 Pulse Ox 93 L 06/08/21 11:02 Intake & Output 06/07/21 06/08/21 06/08/21 18:59 06:59 18:59 Intake Total 1114.218 322.691 Output Total 1200 1800 Balance -85.782 -1477.309 Weight 59.9 kg 61.261 kg Intake: IV 230 Invasive Line 1 30 Invasive Line 3 20 Invasive Line 4 30 Intake, IV Titration 286.218 322.691 Amount Amiodarone 360 mg In 192.22 Dextrose 5% in Water 200 ml @ 1 MG/MIN 33.333 mls/ hr IV .Q6H [facility] Rx#: [id number] Amiodarone 450 mg In 245.56 Dextrose 5% in Water 250 ml @ 0.5 MG/MIN 16.667 mls/hr IV .Q15H [facility] Rx#: [id number] Heparin Sod,Pork in 0.45% 73.048 77.131 NaCl 25,000 unit In 0.45 % NaCl 1 250ml.bag @ 12 UNITS/KG/HR 6.804 mls/hr IV .Q24H [facility] Rx#: [id number] Nitroglycerin-D5w Pmx 50 20.95 mg In Dextrose/Water 1 250ml.bag @ 10 MCG/MIN 3 mls/hr IV .Q24H [facility] Rx#: [id number] Oral 598 Output: Urine 1200 1800 Uretheral (Zamorano) 1200 1800 Other: Voiding Method Toilet Toilet # Voids 1 2 # Bowel Movements 1 - Labs CBC & Chem 7: 06/08/21 07:44 06/08/21 07:44 Labs: Abnormal Lab Results - Last 24 Hours (Table) 06/07/21 06/07/21 06/08/21 Range/Units 18:43 18:43 00:34 RBC (3.80-5.40) m/uL Hgb (11.4-16.0) gm/dL Hct (34.0-46.0) % APTT 46.0 H 66.4 H (22.0-30.0) sec D-Dimer 0.61 H (<0.60) mg/L FEU Chloride (98-107) mmol/L Carbon Dioxide (22-30) mmol/L Glucose (74-99) mg/dL Calcium (8.4-10.2) mg/dL Troponin I 0.788 H* (0.000-0.034) ng/mL 06/08/21 06/08/21 06/08/21 Range/Units 07:44 07:44 07:44 RBC 3.51 L (3.80-5.40) m/uL Hgb 10.7 L (11.4-16.0) gm/dL Hct 33.9 L (34.0-46.0) % APTT 57.1 H (22.0-30.0) sec D-Dimer (<0.60) mg/L FEU Chloride 116 H (98-107) mmol/L Carbon Dioxide 18 L (22-30) mmol/L Glucose 160 H (74-99) mg/dL Calcium 7.7 L (8.4-10.2) mg/dL Troponin I (0.000-0.034) ng/mL Time taken greater than 35 minutes in patient care out of which more than 50% was spent on counseling and coordination of care. Patient Condition at Discharge: Good Plan - Discharge Summary Discharge Rx Participant: Yes New Discharge Prescriptions: New Apixaban [Eliquis] 5 mg PO BID 30 Days #60 tab Amiodarone [Cordarone] 200 mg PO DAILY 30 Days #30 tab Metoprolol Tartrate [Lopressor] 25 mg PO BID 30 Days #60 tab Continue Cyanocobalamin [Vitamin B-12 Injection] 1,000 mcg SQ Q14D Levothyroxine Sodium [Synthroid] 25 mcg PO DAILY estradioL [Estrace] 1 mg PO DAILY Escitalopram [Lexapro] 20 mg PO DAILY Cyclobenzaprine [Flexeril] 10 mg PO HS Super Enzyme 1 tab PO DAILY Magnesium 200 mg PO DAILY PRN PRN Reason: CRAMPS L.acidoph,Paracasei, B.lactis [Probiotic] 1 cap PO DAILY Ergocalciferol (Vitamin D2) [Vitamin D2] 100,000 unit PO MOFR calcitrioL [Calcitriol] 0.5 mcg PO BID Cholecalciferol [Vitamin D3 (25 Mcg = 1000 Iu)] 25 mcg PO DAILY Vitamin A Acetate [Vitamin A] 10,000 units PO DAILY Discharge Medication List Cyanocobalamin [Vitamin B-12 Injection] 1,000 mcg SQ Q14D 12/30/16 [History] Cyclobenzaprine [Flexeril] 10 mg PO HS 12/30/16 [History] Ergocalciferol (Vitamin D2) [Vitamin D2] 100,000 unit PO MOFR 12/30/16 [History] Escitalopram [Lexapro] 20 mg PO DAILY 12/30/16 [History] L.acidoph,Paracasei, B.lactis [Probiotic] 1 cap PO DAILY 12/30/16 [History] Levothyroxine Sodium [Synthroid] 25 mcg PO DAILY 12/30/16 [History] Magnesium 200 mg PO DAILY PRN 12/30/16 [History] Super Enzyme 1 tab PO DAILY 12/30/16 [History] estradioL [Estrace] 1 mg PO DAILY 12/30/16 [History] Cholecalciferol [Vitamin D3 (25 Mcg = 1000 Iu)] 25 mcg PO DAILY 06/07/21 [History] Vitamin A Acetate [Vitamin A] 10,000 units PO DAILY 06/07/21 [History] calcitrioL [Calcitriol] 0.5 mcg PO BID 06/07/21 [History] Amiodarone [Cordarone] 200 mg PO DAILY 30 Days #30 tab 06/08/21 [Rx] Apixaban [Eliquis] 5 mg PO BID 30 Days #60 tab 06/08/21 [Rx] Metoprolol Tartrate [Lopressor] 25 mg PO BID 30 Days #60 tab 06/08/21 [Rx] Follow up Appointment(s)/Referral(s): Nayla Hidalgo MD [Primary Care Provider] - 06/10/21 10:00 am Uriah Tapia DO [STAFF PHYSICIAN] - 06/12/21 1:15 pm Patient Instructions/Handouts: Metoprolol (By mouth), Amiodarone (By mouth), Apixaban (By mouth), A-fib (Atrial Fibrillation) (DC) Activity/Diet/Wound Care/Special Instructions: Copay for Eliquis is $43.50, 1st free month coupon will be applied. Discharge Disposition: HOME SELF-CARE
== END 2021-06-08 15:25 | disposition home or self-care (01) | DRG 281 ==
LOC: EC 04:21 → 3SCARD 05:43
PROVIDERS: ADMIT Internal Medicine; ATTEND Internal Medicine
PROC: 5A2204Z Restoration of Cardiac Rhythm, Single (ICD-10-PCS; 2021-06-07)
PROC: B2111ZZ Fluoroscopy of Multiple Coronary Arteries using Low Osmolar Contrast (ICD-10-PCS; principal; 2021-06-07 15:00)
PROC: B2151ZZ Fluoroscopy of Left Heart using Low Osmolar Contrast (ICD-10-PCS; principal; 2021-06-07 15:00)
PROC: 4A023N7 Measurement of Cardiac Sampling and Pressure, Left Heart, Percutaneous Approach (ICD-10-PCS; principal; 2021-06-07 15:00)
DX: I21.4 Non-ST elevation (NSTEMI) myocardial infarction (principal); K91.2 Postsurgical malabsorption, not elsewhere classified; E87.2 Acidosis; I47.2 Ventricular tachycardia; I95.9 Hypotension, unspecified; J84.10 Pulmonary fibrosis, unspecified; I48.0 Paroxysmal atrial fibrillation; M06.9 Rheumatoid arthritis, unspecified; Z20.822 Contact with and (suspected) exposure to COVID-19; I10 Essential (primary) hypertension; E03.9 Hypothyroidism, unspecified; I08.3 Combined rheumatic disorders of mitral, aortic and tricuspid valves; M79.7 Fibromyalgia; I25.2 Old myocardial infarction; F43.10 Post-traumatic stress disorder, unspecified; F32.A Depression, unspecified; M81.0 Age-related osteoporosis without current pathological fracture; M19.90 Unspecified osteoarthritis, unspecified site; Z79.890 Hormone replacement therapy; Z79.899 Other long term (current) drug therapy; Z85.41 Personal history of malignant neoplasm of cervix uteri; Z98.84 Bariatric surgery status; Z86.14 Personal history of Methicillin resistant Staphylococcus aureus infection; Z90.49 Acquired absence of other specified parts of digestive tract; Z90.89 Acquired absence of other organs; Z87.19 Personal history of other diseases of the digestive system; Z87.42 Personal history of other diseases of the female genital tract; Z90.710 Acquired absence of both cervix and uterus; Z96.60 Presence of unspecified orthopedic joint implant; Z89.022 Acquired absence of left finger(s); Z89.021 Acquired absence of right finger(s); Z98.890 Other specified postprocedural states; W19.XXXA Unspecified fall, initial encounter; Z88.8 Allergy status to other drugs, medicaments and biological substances; Z88.1 Allergy status to other antibiotic agents; Z91.013 Allergy to seafood; Z82.49 Family history of ischemic heart disease and other diseases of the circulatory system
CPT/HCPCS: 36415; 70450; 71045; 72125; 80048; 80053; 83605; 83735; 83880; 84484; 85025; 85379; 85610; 85730; 87635; 92960; 93005; 93306; 93458; 96361; 96374; 99291

== ENCOUNTER → 2021-09-25 | Outpatient (CLI) | payer MEDICARE ==
[2021-09-25 11:39] LABS: HCT 37.7 % (37.2-46.3); HGB 11.4 g/dL (12.0-15.0); MCH 27.5 pg (27.0-32.0); MCHC 30.2 g/dL (32.0-37.0); MCV 90.8 fL (80.0-97.0); Mean Platelet Volume 11.8 fL (9.5-12.2); NRBC Per 100 WBC 0 /100 WBCS (0.0-0.0); Platelet Count 216 X 10*3/uL (140-440); RBC 4.15 X 10*6/uL (4.10-5.20); RDW 14.9 % (11.5-14.5); WBC 6.06 X 10*3/uL (4.50-10.00)
[2021-09-25 11:41] LABS: African American GFR (CKD) 84.2 (60.0-200.0); Blood Urea Nitrogen 15.7 mg/dL (9.0-27.0); Non-African American GFR(CKD) 72.6 (60.0-200.0); Potassium 4.9 mmol/L (3.5-5.5)
== END | disposition home or self-care (01) ==
LOC: LABPAT 07:06
PROVIDERS: ATTEND Internal Medicine Clinical Cardiac Electrophysiology
DX: Z01.812 Encounter for preprocedural laboratory examination (principal); I48.0 Paroxysmal atrial fibrillation
CPT/HCPCS: 80051; 82565; 84520; 85027

== ENCOUNTER 2021-09-29 09:57 | Day surgery (SDC) | payer MEDICARE ==
[~2021-09-29 09:57] MED LIST changes: -MIDAZOLAM 2 MG/2 ML VIAL IV PRN; -Pre Op ABX Message 1 EACH MISC MISCELLANE ONE; +SODIUM CHLORIDE 0.9% 1,000 ML IV SCH
[2021-09-29] MEDS ORDERED: SODIUM CHLORIDE 0.9% 1,000 ML IV ONE (10:23)
[2021-09-29] MEDS ORDERED: diphenhydrAMINE 50 MG/ML 1 ML VIAL ONE (11:02)
[2021-09-29] MEDS ORDERED: DEXAMETHASONE SOD PHOSPHATE 4 MG/ML 1 ML VIAL ONE (11:02)
[2021-09-29] MEDS ORDERED: ISOPROTERENOL 250 MCG/1.25 ML SYR IV ONE (11:02)
[2021-09-29] MEDS ORDERED: MIDAZOLAM 2 MG/2 ML VIAL ONE (11:02)
[2021-09-29] MEDS ORDERED: PROPOFOL 10 MG/ML 20 ML VIAL IV ONE (11:02)
[2021-09-29] MEDS ORDERED: ROCURONIUM 10 MG/ML (5 ML VIAL) IV ONE (11:02)
[2021-09-29] MEDS ORDERED: METOPROLOL TARTRATE 5 MG/5 ML VIAL IVP ONE (11:02)
[2021-09-29] MEDS ORDERED: LIDOCAINE 2% INJ 20 MG/ML (2 ML VIAL) ONE (11:02)
[2021-09-29] MEDS ORDERED: HEPARIN SODIUM,PORCINE 10,000 UNIT/ML 1 ML VIAL ONE (11:02)
[2021-09-29] MEDS ORDERED: ONDANSETRON 4 MG/2 ML VIAL ONE (11:02)
[2021-09-29] MEDS ORDERED: PHENYLEPHRINE-0.9% NACL SYG 1,000 MCG/10 ML SYRINGE ONE (11:02)
[2021-09-29] MEDS ORDERED: methylPREDNISolone SOD SUCCI 125 MG/2 ML VIAL ONE (11:02)
[2021-09-29] MEDS ORDERED: fentaNYL (PF) 50 MCG/ML 2 ML AMP ONE (11:02)
[2021-09-29] MEDS ORDERED: SUCCINYLCHOLINE CHLORIDE 100 MG/5 ML SYR IV ONE (11:02)
[2021-09-29] MEDS ORDERED: HEPARIN SOD,PORK IN 0.45% NACL 25,000 UNIT in 0.45% NACL 1 250ML.BAG IV ONE (11:50)
[2021-09-29] MEDS ORDERED: LIDOCAINE 1% INJ 10MG/ML (5 ML VIAL-PF) SQ ONE (11:52)
[2021-09-29] MEDS ORDERED: IOPAMIDOL-370 100ML BTL INJ ONE (13:53)
--- NOTE | 2021-09-29 14:35 | P.HPCAR ---
History of Present Illness This is Dr. Sumner dictating an H/P on this patient The patient was interviewed and examined IMPRESSION / ASSESSMENT: Paroxysmal atrial fibrillation RVR associated with syncope and abnormal cardiac enzymes Symptomatic with tiredness and fatigue Normal coronary arteries Asymmetric septal hypertrophy Redundant anterior mitral leaflet with chordal systolic anterior motion Normal LV size and function Normal RV size and function No evidence for delayed enhancement on cardiac MRI Left atrium 4.3 cm Shellfish ALLERGY but no clear-cut dye/iodine ALLERGY PLAN: Pulmonary vein isolation for management of atrial fibrillation Reduce amiodarone dose to 100 mg by mouth daily thereafter Continue [facility]QU[facility] Check TSH level HPI Patient continues to have tiredness fatigue with lack of energy and palpitations According to her sister she's been having frequent episodes in the last week or so with palpitations No syncope ROS: No fever chills or rigors, no cough, phlegm or expectoration, no nausea, vomiting or diarrhea, no hematuria, dysuria, no musculoskeletal complaints, no strokes or seizures, no skin lesions. EXAMINATION: Afebrile 96.8F, pulse rate in the 60s, blood pressure 124/56 mmHg Normal heart sounds No murmurs Clear lungs no rhonchi no crackles Abdomen soft No lower extremity edema No JVD at baseline REVIEW OF LABS, ECG & MEDICAL DATA Coronavirus PCR negative Medications include amiodarone 100 mg by mouth daily, ELIQUIS 5 g twice daily, metoprolol tartrate 25 mg twice a day Levothyroxine 25 g by mouth daily Physical Exam Vitals: Vital Signs Temp Pulse Pulse Resp BP BP Pulse Ox 09/29/21 14:27 78 16 139/63 95 09/29/21 14:12 96.8 F L 83 18 151/72 96 09/29/21 10:26 97.8 F 62 16 124/56 95 Intake and Output 09/28/21 09/29/21 09/29/21 22:59 06:59 14:59 Intake Total 772 Balance 772 Intake: IV 772 Other: Weight 54.794 kg Past Medical History Past Medical History: Cancer, Fibromyalgia, Osteoarthritis (OA), Rheumatoid Arthritis (RA), Seizure Disorder, Syncope, Thyroid Disorder Additional Past Medical History / Comment(s): Cervical CA years ago; Osteoporosis, Raynaud's, one time seizure after gastric bypass-nothing since, see Dr Sumner H & P, lightheaded @times, falls, malabsorption History of Any Multi-Drug Resistant Organisms: MRSA Date of last positivie culture/infection: 2005 MDRO Source:: R index finger L baby finger Past Surgical History: Appendectomy, Bariatric Surgery, Cholecystectomy, Hysterectomy, Joint Replacement, Orthopedic Surgery, Tonsillectomy Additional Past Surgical History / Comment(s): Gastric Bypass, & revision; Duodenal Switch; Tummy Tuck, numerous hand surgeries; finger joints replaced, 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 waking up Smoking Status: Never smoker - Past Family History Father Family Medical History: Cancer Physical Examination Vital Signs Temp Pulse Pulse Resp BP BP Pulse Ox 09/29/21 14:27 78 16 139/63 95 09/29/21 14:12 96.8 F L 83 18 151/72 96 09/29/21 10:26 97.8 F 62 16 124/56 95 Intake and Output 09/28/21 09/29/21 09/29/21 22:59 06:59 14:59 Intake Total 772 Balance 772 Intake: IV 772 Other: Weight 54.794 kg Results Current Medications Generic Name Dose Route Start Last Admin Trade Name Bridget PRN Reason Stop Dose Admin Lactated Ringer's 1,000 mls @ 20 mls/hr 09/29/21 07:06 Lactated Ringers IV 10/29/21 07:07 .Q24H [facility] Sodium Chloride 1,000 mls @ 50 mls/hr 09/29/21 07:06 Saline 0.9% IV 10/29/21 07:07 .Q20H [facility] Intake and Output 09/28/21 09/29/21 09/29/21 22:59 06:59 14:59 Intake Total 772 Balance 772 Intake: IV 772 Other: Weight 54.794 kg Patient Weight 09/30/21 06:59 Weight 54.794 kg
[2021-09-29] MEDS ORDERED: MAGNESIUM OXIDE 400 MG TAB PO PRN (14:36)
[2021-09-29] MEDS ORDERED: ACETAMINOPHEN TAB 325 MG TAB PO PRN (14:40)
--- NOTE | 2021-09-29 14:49 | P.EPPROC ---
- EP Procedure Note Electrophysiology Procedure Note: PROCEDURE A. fib ablation/pulmonary vein isolation DIAGNOSIS Paroxysmal Atrial fibrillation, symptomatic, refractory to therapy RESULT No left atrial appendage mass seen on intracardiac echo Very prominent pericardial stripe especially around the left ventricle on intracardiac echo Successful A. fib ablation/pulmonary vein isolation of all veins using cryo- ablation Complete entrance block in all 4 veins confirmed No evidence for phrenic nerve injury Esophageal deflection YES , right-sided esophagus PROCEDURE DETAILS Patient was brought to the EP lab in a fasting state after obtaining written informed consent. Procedure performed under general anesthesia Esophagus was intubated. Esophageal temperature monitoring with circa catheter. Esophageal deflection with an endoscope to avoid hypothermia of the esophagus. After initial muscle relaxant use, muscle relaxants were not given thereafter in order to assess phrenic nerve during procedure. Patient prepped and draped as per protocol Cryo ablation-set up with standard preparation of the cryoablation tools done. Femoral Venous access obtained on the right and left groins and sheaths placed Diagnostic catheters for the high right atrium, phrenic nerve stimulation and pacing, His bundle, coronary sinus placed Intracardiac echo catheter placed. Long sheath placed in the right atrium Left and right transseptal catheterization performed under intracardiac echo guidance. Intravenous heparin with aCT above 300 Later, catheter positioning and balloon positioning in the left atrium and pulmonary veins, under intracardiac echo guidance Diagnostic EP study with coronary sinus pacing and recording Baseline measurements: Sinus cycle length 1021 ms, NE interval 170, QRS 103 and QT 468 ms AH 118 ms and HV 67 ms Burst stimulation from the high right atrium from 400 ms down to 300 ms No inducible atrial fibrillation post cryoablation High dose Isuprel infused No inducible atrial fibrillation after pvi Transseptal catheterization performed RA pressure 11/9 LA pressure 21//14 Transseptal catheterization performed with standard sheath. The cryoablation sheath was then placed with an over the wire exchange without any acute complications. The cryoablation balloon was placed in the office of each pulmonary vein and all 4 pulmonary veins were isolated. IV dye was injected to confirm occlusion. Goal: achieve complete occlusion of the pulmonary vein, achieve -30 degrees C at 30 seconds and achieve -40 degrees C at 60 seconds and a time to effect of less than 60 seconds. If not, the balloon was repositioned to obtain this result After completion of Cryoblation with durations from 180-240 seconds, entrance block was confirmed with the Attain circular catheter in a roving fashion around the antrum of the pulmonary veins Phrenic nerve pacing was performed from the SVC, right innominate vein area and diaphragm voltage was monitored. Diaphragmatic contractions were also monitored manually for strength of contraction. At the end of the procedure the Achieve catheter was once again used to check for entrance block Phrenic nerve stimulation was performed to confirm diaphragmatic stimulation the end of the procedure Phrenic nerve was diabetic carefully in the SVC, at the level of the RS PV. Phrenic nerve stimulation 7.67 mm away from the tip of the balloon in the RS PV Phrenic nerve Threshold 2mA at this point Cine fluoroscopy was performed at the very end of the procedure to confirm movement of both diaphragms with inspiration and expiration At the end of the procedure the patient was extubated Venous sheaths were removed and hemostasis assured with a closure device PROCEDURES PERFORMED Diagnostic EP study CS pacing and recording Left and right transseptal catheterization Catheter the mapping of the tachycardia Intracardiac echocardiography Pulmonary vein isolation with transseptal and comprehensive EPS, [id number] Drug infusion, +[id number]
--- NOTE | 2021-09-29 14:51 | P.PRLE ---
RE: RadhaLety Dear Nayla Mrs. Garcia underwent successful pulmonary vein isolation of the pulmonary veins for management of very symptomatic atrial fibrillation I would reduce the dose of amiodarone to 100 mg by mouth daily Hopefully this results in significant reduction in her a few episodes She will continue ELIQUIS lifelong Thank you for entrusting me with the care of the patient Warm regards Sincerely Denver Sumner
[2021-09-29] MEDS ORDERED: ACETAMINOPHEN IV (For NPO) 1,000 MG in EMPTY BAG 1 BAG IVPB ONE (15:00)
[2021-09-29] MEDS: APIXABAN 5 MG TAB PO SCH (20:44)
[2021-09-29] MEDS: METOPROLOL TARTRATE 25 MG TAB PO SCH (20:44)
[2021-09-30 02:33] VITALS: RESP 18; TEMP 98
[2021-09-30] MEDS ORDERED: LEVOTHYROXINE 25 MCG TAB PO SCH (06:30)
[2021-09-30] MEDS: METOPROLOL TARTRATE 25 MG TAB PO SCH (08:01)
[2021-09-30] MEDS: APIXABAN 5 MG TAB PO SCH (08:01)
[2021-09-30 08:16] VITALS: BP 92/58; PULSE 82
[2021-09-30] MEDS ORDERED: AMIODARONE 100 MG TAB PO SCH (09:00)
--- NOTE | 2021-09-30 11:20 | P.DS ---
Providers Attending physician: Denver Sumner Primary care physician: [facility] Course: Patient is doing well. Mild sore throat but improved since yesterday No chest discomfort No dizziness lightheadedness no palpitations Her main complaint is of tiredness and fatigue and lack of energy for the last week or so She feels well overnight Groins of healed well Heart sounds are normal and regular No rub no murmurs Clear lungs to rhonchi no crackles No hematoma in the groins Blood pressure 127/71 mmHg 99/60 and 92/58 mmHg afebrile Impression Pulmonary vein isolation for management of atrial fibrillation Patient is a tiredness and fatigue, TSH is normal 1.2 Heart rate 7 the 70s Some blood pressure readings are low LV function is normal on intracardiac echo yesterday Plan Reduce amiodarone to 100 mg by mouth daily Continue amiodarone for about 6 weeks and then stop Reduce metoprolol 12.5 g twice daily Adequate hydration Home today Follow up in a week with Dr. Sumner/Yael Jain Plan - Discharge Summary New Discharge Prescriptions: No Action RX: Cyanocobalamin [Vitamin B-12 Injection] 1,000 mcg SQ Q14D RX: Levothyroxine Sodium [Synthroid] 25 mcg PO DAILY RX: estradioL [Estrace] 1 mg PO DAILY RX: Escitalopram [Lexapro] 20 mg PO DAILY Super Enzyme 1 tab PO DAILY RX: Magnesium 200 mg PO DAILY PRN PRN Reason: CRAMPS RX: L.acidoph,Paracasei, B.lactis [Probiotic] 1 cap PO DAILY RX: Ergocalciferol (Vitamin D2) [Vitamin D2] 100,000 unit PO MOFR RX: calcitrioL [Calcitriol] 0.5 mcg PO BID RX: Cholecalciferol [Vitamin D3 (25 Mcg = 1000 Iu)] 125 mcg PO DAILY RX: Vitamin A Acetate [Vitamin A] 10,000 units PO DAILY Apixaban [Eliquis] 5 mg PO BID 30 Days #60 tab RX: Metoprolol Tartrate [Lopressor] 25 mg PO BID 30 Days #60 tab RX: Amiodarone [Cordarone] 100 mg PO DAILY Discharge Medication List RX: Cyanocobalamin [Vitamin B-12 Injection] 1,000 mcg SQ Q14D 12/30/16 [History] RX: Ergocalciferol (Vitamin D2) [Vitamin D2] 100,000 unit PO MOFR 12/30/16 [ History] RX: Escitalopram [Lexapro] 20 mg PO DAILY 12/30/16 [History] RX: L.acidoph,Paracasei, B.lactis [Probiotic] 1 cap PO DAILY 12/30/16 [History] RX: Levothyroxine Sodium [Synthroid] 25 mcg PO DAILY 12/30/16 [History] RX: Magnesium 200 mg PO DAILY PRN 12/30/16 [History] RX: estradioL [Estrace] 1 mg PO DAILY 12/30/16 [History] Super Enzyme 1 tab PO DAILY 12/30/16 [History] RX: Cholecalciferol [Vitamin D3 (25 Mcg = 1000 Iu)] 125 mcg PO DAILY 06/07/21 [History] RX: Vitamin A Acetate [Vitamin A] 10,000 units PO DAILY 06/07/21 [History] RX: calcitrioL [Calcitriol] 0.5 mcg PO BID 06/07/21 [History] Apixaban [Eliquis] 5 mg PO BID 30 Days #60 tab 06/08/21 [Rx] RX: Metoprolol Tartrate [Lopressor] 25 mg PO BID 30 Days #60 tab 06/08/21 [Rx] RX: Amiodarone [Cordarone] 100 mg PO DAILY 09/25/21 [History]
== END 2021-09-30 13:20 | disposition home or self-care (01) ==
LOC: CATHEP 09:57 → 6NMEDSUR 13:45 → CATHEP 09-30 13:20
PROVIDERS: ATTEND Internal Medicine Clinical Cardiac Electrophysiology
DX: I48.0 Paroxysmal atrial fibrillation (principal); R55 Syncope and collapse; Z79.01 Long term (current) use of anticoagulants; M79.7 Fibromyalgia; M19.90 Unspecified osteoarthritis, unspecified site; E07.9 Disorder of thyroid, unspecified; M06.9 Rheumatoid arthritis, unspecified; Z89.022 Acquired absence of left finger(s); Z20.822 Contact with and (suspected) exposure to COVID-19; G40.909 Epilepsy, unspecified, not intractable, without status epilepticus; M81.0 Age-related osteoporosis without current pathological fracture; Z79.890 Hormone replacement therapy; Z79.899 Other long term (current) drug therapy; Z88.1 Allergy status to other antibiotic agents; I73.00 Raynaud's syndrome without gangrene; Z98.84 Bariatric surgery status; Z85.41 Personal history of malignant neoplasm of cervix uteri; R29.6 Repeated falls; K90.9 Intestinal malabsorption, unspecified; Z86.14 Personal history of Methicillin resistant Staphylococcus aureus infection; Z90.49 Acquired absence of other specified parts of digestive tract; Z90.710 Acquired absence of both cervix and uterus; Z98.890 Other specified postprocedural states; Z89.021 Acquired absence of right finger(s); Z97.2 Presence of dental prosthetic device (complete) (partial); Z82.49 Family history of ischemic heart disease and other diseases of the circulatory system; Z80.9 Family history of malignant neoplasm, unspecified; Z91.041 Radiographic dye allergy status; Z91.013 Allergy to seafood; Z91.048 Other nonmedicinal substance allergy status
CPT/HCPCS: 93623; 93656; 84443; 87635; C1894 ×2; C1769 ×4; C1760; C1730 ×2; C1759; C1893; C1733; C1766; J2250; J1200; J1644 ×2; J1100; J2930; J2405; J2001 ×2; J3010; J0131; J2370; J0330; J2704; Q9967

== ENCOUNTER 2021-11-14 12:46 | Emergency (ER) | payer MEDICARE ==
[2021-11-14 12:56] VITALS: TEMP 98.1
[2021-11-14] MEDS ORDERED: SODIUM CHLORIDE 0.9% 1,000 ML IV STA (12:59)
[2021-11-14 13:11] LABS: Basophils # (A) 0.1 k/uL (0-0.2); Basophils % (A) 1 %; Eosinophils # (A) 0.2 k/uL (0-0.7); Eosinophils % (A) 2 %; HCT 34.6 % (34.0-46.0); HGB 10.8 gm/dL (11.4-16.0); Hypochromasia Slight; Lymphocytes % (A) 13 %; MCH 26.7 pg (25.0-35.0); MCHC 31.2 g/dL (31.0-37.0); MCV 85.6 fL (80.0-100.0); Mean Platelet Volume 8.9; Monocytes # (A) 0.2 k/uL (0-1.0); Monocytes % (A) 3 %; Neutrophils # (A) 6.3 k/uL (1.3-7.7); Neutrophils % (A) 80 %; Platelet Count 214 k/uL (150-450); RBC 4.04 m/uL (3.80-5.40); RDW 14.1 % (11.5-15.5); WBC 7.9 k/uL (3.8-10.6)
[2021-11-14] MEDS ORDERED: HYDROmorphone 0.5 MG/0.5 ML SYRINGE IVP STA ×2 (13:17→14:41)
[2021-11-14] MEDS ORDERED: ONDANSETRON 4 MG/2 ML VIAL IVP STA (13:17)
[2021-11-14 13:24] LABS: Albumin 3.6 g/dL (3.5-5.0); Calcium 7.8 mg/dL (8.4-10.2); Potassium 4.1 mmol/L (3.5-5.1); Total Bilirubin 0.3 mg/dL (0.2-1.3); Total Protein 6.1 g/dL (6.3-8.2)
[2021-11-14 14:17] LABS: Appearance,Urine Cloudy (Clear); Bacteria,Urine Rare /hpf; Bilirubin,Urine Negative (Negative); Blood,Urine Large (Negative); Budding Yeast,Urine Many /hpf; Color,Urine Yellow; Glucose,Urine (UA) Negative (Negative); Ketones,Urine 1+ (Negative); Leukocyte Esterase,Urine Negative (Negative); Mucus,Urine Rare /hpf; Nitrite,Urine Negative (Negative); PH, Urine 5.5 (5.0-8.0); Protein,Urine 1+ (Negative); RBC,Urine >182 /hpf (0-5); Specific Gravity,Urine 1.021 (1.001-1.035); Squamous Epithelial Cell,Urine 1 /hpf (0-4); Urobilinogen,Urine <2.0 mg/dL (<2.0); WBC,Urine 1 /hpf (0-5)
--- NOTE | 2021-11-14 14:23 | CT ---
EXAMINATION TYPE: CT abdomen pelvis wo con CT DLP: 419.5 mGycm, Automated exposure control for dose reduction was used. DATE OF EXAM: 11/14/2021 1:43 PM COMPARISON: None. CLINICAL INDICATION:Female, 76 years old with history of abdominal pain; TECHNIQUE: Standard CT of the abdomen and pelvis without IV or oral contrast. Lack of IV or oral co ntrast limits evaluation of solid and hollow organ viscera. Coronal and sagittal reformats were perfo rmed. FINDINGS: LOWER CHEST: Unremarkable ABDOMEN LIVER: No suspicious lesion is a noncontrast exam. GALLBLADDER AND BILE DUCTS: The gallbladder is surgically absent. No biliary duct dilatation. PANCREAS: Unremarkable noncontrast appearance. SPLEEN: Unremarkable noncontrast appearance. ADRENAL GLANDS: Unremarkable noncontrast appearance. KIDNEYS AND URETERS: Mild left hydroureteronephrosis with an obstructing 0.8 x 0.5 cm calculus at ure terovesical junction. Nonobstructive left renal calculi with largest in the renal pelvis measuring 1. 6 x 0.8 cm. No hydronephrosis of the right kidney. Cortical right renal cyst. PELVIS BLADDER: Incompletely distended but grossly unremarkable. REPRODUCTIVE: The uterus is surgically absent. ABDOMEN & PELVIS STOMACH AND BOWEL: Postsurgical changes from gastric bypass. Anastomosis demonstrated within the righ t lower and left mid abdomen. No evidence of bowel obstruction. PERITONEUM: No evidence of pneumoperitoneum. Trace perisplenic ascites. There are dropped surgical cl ips in the right lower quadrant. VASCULATURE: Mild atherosclerotic calcifications are present throughout the abdominal aorta and its b ranches. No evidence of aortic aneurysm. MUSCULOSKELETAL: No acute osseous abnormalities. Degenerative changes lumbar spine and L5-S1 disc spa ce narrowing, endplate sclerosis, vacuum disc disease and anterior osteophytosis. LYMPH NODES: No gross evidence for lymphadenopathy. SOFT TISSUE/ABDOMINAL WALL: Unremarkable IMPRESSION: 1. Mild left hydroureteronephrosis with an obstructing 0.8 x 0.5 cm calculus at the ureterovesical j unction. 2. Additional nonobstructing left renal calculi. 3. Postsurgical changes of the bowel.
--- NOTE | 2021-11-14 14:45 | ED ---
Abdominal Pain HPI - General Chief Complaint: Abdominal Pain Stated Complaint: L side pain Time Seen by Provider: 11/14/21 12:54 Source: patient, EMS, RN notes reviewed Mode of arrival: EMS Limitations: no limitations - History of Present Illness Initial Comments: This a 76-year-old female presents emergency Department with chief complaint of left sided flank pain. Patient states started day or so ago. Patient states that she denies nausea and vomiting. No dysuria no urinary frequency no diarrhea constipation unusual. Patient states she had no history of diverticulitis. She does have history kidney stones but this feels slightly worse. Patient denies any chest pain shortness breath no other complaints. - Related Data Home Medications Medication Instructions Recorded Confirmed Cyanocobalamin [Vitamin B-12 1,000 mcg SQ Q14D 12/30/16 09/29/21 Injection] Ergocalciferol (Vitamin D2) 100,000 unit PO MOFR 12/30/16 09/29/21 [Vitamin D2] Escitalopram [Lexapro] 20 mg PO DAILY 12/30/16 09/29/21 L.acidoph,Paraccecii, Marian.lactis 1 cap PO DAILY 12/30/16 09/29/21 [Probiotic] Levothyroxine Sodium [Synthroid] 25 mcg PO DAILY 12/30/16 09/29/21 Magnesium 200 mg PO DAILY PRN 12/30/16 09/29/21 Super Enzyme 1 tab PO DAILY 12/30/16 09/29/21 estradioL [Estrace] 1 mg PO DAILY 12/30/16 09/29/21 Cholecalciferol [Vitamin D3 (25 125 mcg PO DAILY 06/07/21 09/29/21 Mcg = 1000 Iu)] Vitamin A Acetate [Vitamin A] 10,000 units PO DAILY 06/07/21 09/29/21 calcitrioL [Calcitriol] 0.5 mcg PO BID 06/07/21 09/29/21 Amiodarone [Cordarone] 100 mg PO DAILY 09/25/21 09/29/21 Previous Rx's Medication Instructions Recorded Apixaban [Eliquis] 5 mg PO BID 30 Days #60 tab 06/08/21 Metoprolol Tartrate [Lopressor] 25 mg PO BID 30 Days #60 tab 06/08/21 HYDROcodone/APAP 5-325MG [Gowen 5] 1 each PO Q6HR PRN #12 tab 11/14/21 Ondansetron Odt [Zofran Odt] 4 mg PO Q8HR PRN #10 tab 11/14/21 Allergies Allergy/AdvReac Type Severity Reaction Status Date / Time cephalexin [From Keflex] AdvReac Rash/Hives Verified 09/25/21 14:28 Iodinated Contrast Media AdvReac flushing Verified 09/25/21 14:28 iodine AdvReac Rash/Hives Verified 09/25/21 14:28 shellfish derived [Shellfish] AdvReac Rash/Hives Verified 09/25/21 14:28 Review of Systems ROS Statement: Those systems with pertinent positive or pertinent negative responses have been documented in the HPI. ROS Other: All systems not noted in ROS Statement are negative. Past Medical History Past Medical History: Atrial Fibrillation, Cancer, Fibromyalgia, Osteoarthritis (OA), Rheumatoid Arthritis (RA), Syncope, Thyroid Disorder Additional Past Medical History / Comment(s): Cervical CA years ago; Osteoporosis, Raynaud's, one time seizure after gastric bypass-nothing since, see Dr Sumner H & P, lightheaded @times, falls, malabsorption History of Any Multi-Drug Resistant Organisms: MRSA Date of last positivie culture/infection: 2005 MDRO Source:: R index finger L baby finger Past Surgical History: Ablation, Appendectomy, Bariatric Surgery, Cholecystectomy, Hysterectomy, Joint Replacement, Orthopedic Surgery, Tonsillectomy Additional Past Surgical History / Comment(s): Gastric Bypass, & revision; Duodenal Switch; Tummy Tuck, numerous hand surgeries; finger joints replaced, 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 waking up Past Psychological History: Anxiety, PTSD Smoking Status: Never smoker Past Alcohol Use History: None Reported Past Drug Use History: None Reported - Past Family History Father Family Medical History: Cancer General Exam Limitations: no limitations General appearance: alert, in no apparent distress Head exam: Present: atraumatic, normocephalic, normal inspection Eye exam: Present: normal appearance, PERRL, EOMI. Absent: scleral icterus, conjunctival injection, periorbital swelling Respiratory exam: Present: normal lung sounds bilaterally. Absent: respiratory distress, wheezes, rales, rhonchi, stridor Cardiovascular Exam: Present: regular rate, normal rhythm, normal heart sounds. Absent: systolic murmur, diastolic murmur, rubs, gallop, clicks GI/Abdominal exam: Present: soft, tenderness (minimal left-sided), normal bowel sounds. Absent: distended, guarding, rebound, rigid Back exam: Present: CVA tenderness (L). Absent: CVA tenderness (R) Course Vital Signs 11/14/21 11/14/21 12:47 13:21 Temperature 98.1 F Pulse Rate 73 73 Respiratory 18 16 Rate Blood Pressure 168/75 159/71 O2 Sat by Pulse 100 98 Oximetry Medical Decision Making - Medical Decision Making Patient CT shows 8 mm x 5 mm UVJ stone. Labs unremarkable. Patient's pain is improved and she. We'll discharge she was up admission secondary to stone size for pain control. Patient declines will be discharged with pain control and follow-up with urology. - Lab Data Result diagrams: 11/14/21 13:01 11/14/21 13:01 Lab Results 11/14/21 11/14/21 11/14/21 Range/Units 13:01 13:01 14:01 WBC 7.9 (3.8-10.6) k/uL RBC 4.04 (3.80-5.40) m/uL Hgb 10.8 L (11.4-16.0) gm/dL Hct 34.6 (34.0-46.0) % MCV 85.6 (80.0-100.0) fL MCH 26.7 (25.0-35.0) pg MCHC 31.2 (31.0-37.0) g/dL RDW 14.1 (11.5-15.5) % Plt Count 214 (150-450) k/uL MPV 8.9 Neutrophils % 80 % Lymphocytes % 13 % Monocytes % 3 % Eosinophils % 2 % Basophils % 1 % Neutrophils # 6.3 (1.3-7.7) k/uL Lymphocytes # 1.0 (1.0-4.8) k/uL Monocytes # 0.2 (0-1.0) k/uL Eosinophils # 0.2 (0-0.7) k/uL Basophils # 0.1 (0-0.2) k/uL Hypochromasia Slight Sodium 137 (137-145) mmol/L Potassium 4.1 (3.5-5.1) mmol/L Chloride 111 H (98-107) mmol/L Carbon Dioxide 19 L (22-30) mmol/L Anion Gap 7 mmol/L BUN 20 H (7-17) mg/dL Creatinine 0.81 (0.52-1.04) mg/dL Est GFR (CKD-EPI)AfAm 83 (>60 ml/min/1.73 sqM) Est GFR (CKD-EPI)NonAf 72 (>60 ml/min/1.73 sqM) Glucose 116 H (74-99) mg/dL Calcium 7.8 L (8.4-10.2) mg/dL Total Bilirubin 0.3 (0.2-1.3) mg/dL AST 20 (14-36) U/L ALT 11 (4-34) U/L Alkaline Phosphatase 76 (38-126) U/L Total Protein 6.1 L (6.3-8.2) g/dL Albumin 3.6 (3.5-5.0) g/dL Amylase 101 (30-110) U/L Lipase 122 (23-300) U/L Urine Color Yellow Urine Appearance Cloudy H (Clear) Urine pH 5.5 (5.0-8.0) Ur Specific Howells 1.021 (1.001-1.035) Urine Protein 1+ H (Negative) Urine Glucose (UA) Negative (Negative) Urine Ketones 1+ H (Negative) Urine Blood Large H (Negative) Urine Nitrite Negative (Negative) Urine Bilirubin Negative (Negative) Urine Urobilinogen <2.0 (<2.0) mg/dL Ur Leukocyte Esterase Negative (Negative) Urine RBC >182 H (0-5) /hpf Urine WBC 1 (0-5) /hpf Ur Squamous Epith Cells 1 (0-4) /hpf Urine Bacteria Rare H (None) /hpf Urine Mucus Rare H (None) /hpf Urine Yeast (Budding) Many H (None) /hpf Disposition Clinical Impression: Left ureteral calculus Disposition: HOME SELF-CARE Condition: Stable Instructions (If sedation given, give patient instructions): Kidney Stones (ED) Additional Instructions: Please return to the Emergency Department if symptoms worsen or any other concerns. Prescriptions: HYDROcodone/APAP 5-325MG [Gowen 5] 1 each PO Q6HR PRN #12 tab PRN Reason: Pain Ondansetron Odt [Zofran Odt] 4 mg PO Q8HR PRN #10 tab PRN Reason: Nausea Is patient prescribed a controlled substance at d/c from ED?: Yes When asked, does pt state using other controlled substances?: No If prescribed controlled substance>3 days was MAPS reviewed?: Prescribed <3 Days If opioid is for acute pain is fill amount 7 days or less?: Yes If Rx opioid, was Start Talking consent form obtained?: Yes Referrals: Nayla Hidalgo MD [Primary Care Provider] - 1-2 days Adelso Pate MD [STAFF PHYSICIAN] - 1-2 days Time of Disposition: 14:45
[2021-11-14 15:24] VITALS: BP 117/64; PULSE 77; RESP 18
== END 2021-11-14 15:24 | disposition home or self-care (01) ==
LOC: EC 12:46
DX: N13.2 Hydronephrosis with renal and ureteral calculous obstruction (principal); I48.91 Unspecified atrial fibrillation; M79.7 Fibromyalgia; M19.90 Unspecified osteoarthritis, unspecified site; E07.9 Disorder of thyroid, unspecified; Z88.1 Allergy status to other antibiotic agents; Z91.041 Radiographic dye allergy status; Z91.013 Allergy to seafood; Z88.8 Allergy status to other drugs, medicaments and biological substances; Z79.899 Other long term (current) drug therapy; Z79.890 Hormone replacement therapy
CPT/HCPCS: 36415; 80053; 82150; 83690; 85025; 81001; 74176; 99284; 96374; 96375; 96376; 96361; J2405; J1170

== ENCOUNTER → 2022-12-21 | Outpatient (CLI) | payer MEDICARE ==
[2022-12-21 13:58] LABS: African American GFR (CKD) 86 (>60 ml/min/1.73 sqM); Blood Urea Nitrogen 18 mg/dL (7-17); Non-African American GFR(CKD) 74 (>60 ml/min/1.73 sqM)
--- NOTE | 2022-12-21 15:49 | CT ---
EXAMINATION TYPE: CT ChestAbdPelvis w con CT DLP: 480.2 mGycm, Automated exposure control for dose reduction was used. DATE OF EXAM: 12/21/2022 2:45 PM COMPARISON: None. CLINICAL INDICATION:Female, 77 years old with history of R63.4 ABN WEIGHT LOSS, Abnormal weight loss. Technique: Multiple axial images of the chest, abdomen, and pelvis were obtained. Two-dimensional cor onal and sagittal reconstructions were obtained. Contrast used:100ml mL of Isovue 300 with IV Contrast, Oral contrast used: with Oral Contrast Findings: CHEST: LUNGS/ PLEURA: The lung parenchyma appears unremarkable. No focal consolidation, pneumothorax or ple ural effusion. No evidence for mass. AIRWAY: Patent and unremarkable. HEART: Size within normal limits. MEDIASTINUM: No gross evidence of adenopathy. VASCULATURE: No aortic aneurysm. MUSCULOSKELETAL: No acute osseous abnormalities. SOFT TISSUES/LYMPH NODES: Unremarkable. LOWER NECK: No significant findings. ABDOMEN LIVER: No suspicious lesion is a noncontrast exam. GALLBLADDER AND BILE DUCTS: The gallbladder is surgically absent. No biliary duct dilatation. PANCREAS: Unremarkable noncontrast appearance. SPLEEN: Unremarkable noncontrast appearance. ADRENAL GLANDS: Unremarkable noncontrast appearance. KIDNEYS AND URETERS: Resolution of prior left hydroureteronephrosis. Nonobstructive left renal calcul i with largest in the renal pelvis measuring 1.6 x 0.8 cm. No hydronephrosis of the right kidney. Cor tical right renal cyst. PELVIS BLADDER: Incompletely distended but grossly unremarkable. REPRODUCTIVE: The uterus is surgically absent. ABDOMEN & PELVIS STOMACH AND BOWEL: Postsurgical changes from gastric bypass. Anastomosis demonstrated within the righ t lower and left mid abdomen. No evidence of bowel obstruction. PERITONEUM: No evidence of pneumoperitoneum. Trace perisplenic ascites. There are dropped surgical cl ips in the right lower quadrant. VASCULATURE: Mild atherosclerotic calcifications are present throughout the abdominal aorta and its b ranches. No evidence of aortic aneurysm. MUSCULOSKELETAL: No acute osseous abnormalities. Degenerative changes lumbar spine and L5-S1 disc spa ce narrowing, endplate sclerosis, vacuum disc disease and anterior osteophytosis. LYMPH NODES: No gross evidence for lymphadenopathy. SOFT TISSUE/ABDOMINAL WALL: Unremarkable IMPRESSION: 1. No evidence for intra-abdominal or thoracic mass. 2. Resolution of prior left hydroureteronephrosis. 3. Nonobstructing left renal calculi. 4. Postsurgical changes of the bowel.
== END | disposition home or self-care (01) ==
LOC: RADCTMAIN 13:07
PROVIDERS: ATTEND Internal Medicine Hematology & Oncology
DX: N20.0 Calculus of kidney (principal); R63.4 Abnormal weight loss
CPT/HCPCS: 82565; 84520; 71260; 74177; 36415; Q9967

== ENCOUNTER → 2023-03-04 | Outpatient (CLI) | payer MEDICARE ==
--- NOTE | 2023-03-04 11:02 | MM ---
Reason for Exam: Screening (asymptomatic). Last screening mammogram was performed 12 month(s) ago. Patient History: Menarche at age 13. First Full-Term at age 21. Left ovary removed at age 46. Right ovary removed at age 46. Hysterectomy at age 37. Currently using Estrogen, for 10 years. Paternal aunt had breast cancer at or over age 50. Risk Values: Michelle 5 year model risk: 1.6%. NCI Lifetime model risk: 3.2%. Tissue Density: The breast tissue is heterogeneously dense. This may lower the sensitivity of mammography. Findings: Analyzed By CAD. There is no suspicious group of microcalcifications or new suspicious mass in either breast. Benign vascular calcifications within both breasts. Overall Assessment: Benign, BI-RAD 2 Management: Screening Mammogram of both breasts in 1 year. A clinical breast exam by your physician is recommended on an annual basis and results should be correlated with mammographic findings. Note on Michelle scores and lifetime risk: 1. A Michelle score greater than 3% is considered moderate risk. If this is the case, consider specialist referral to assess eligibility for a risk reducing agent. If overall lifetime risk for the development of breast cancer is 20% or higher, the patient may qualify for future screening with alternating mammogram and breast MRI. Electronically signed and approved by: Deejay Salas D.O.
--- NOTE | 2023-03-04 11:43 | BD ---
EXAMINATION TYPE: Axial Bone Density DATE OF EXAM: 03/04/2023 CLINICAL HISTORY: 77 years old Female. ICD-10 CODE: M81.0 AGE RELATED OSTEO Height: 60.5 Weight: 117 FRAX RISK QUESTIONS: Secondary Osteoporosis: yes 3. Menopause before 45: yes 4. Malnutrition: malabsorption, Rheumatoid Arthritis: yes RISK FACTORS HISTORY OF: Family History of Osteoporosis: yes, no hip fx Postmenopausal woman: yes, at age 43 yrs old Take estrogen and/or progesterone medications: yes, estradiol since age 49, still taking Hyperparathyroidism: no Adrenal Insufficiency: no MEDICATIONS: Thyroid Medications: yes, synthroid for about 10 yrs Osteoporosis Medications: Boniva, Forteo, Prolia, and fosamax all of them caused severe dental proble ms, back on estrogen Additional Medications: stopped bp meds, last month, hx of cancer, Lexapro, vit dx3, and calcium, iro n infusion, b12 shots Additional History: hypertension, hx of bariatric surg. RA, osteoarthritis, malabsorption, iron infus ions, , EXAM MEASUREMENTS: Bone mineral densitometry was performed using the [employer] System. Bone mineral density as measured about the Lumbar spine is: ----- L1-L4(G/cm2): 0.949 T Score Values are as follows: ----- L1: -2.3 ----- L2: -2.0 ----- L3: -1.7 ----- L4: -1.9 ----- L1-L4: -1.9 Z Score Values are as follows: ----- L1: -0.1 ----- L2: 0.2 ----- L3: 0.4 ----- L4: 0.3 ----- L1-L4: 0.2 Bone mineral density first at [facility] [place]. Bone mineral density about the R hip (g/cm2): 0.652 Bone mineral density about the L hip (g/cm2): 0.630 T Score values are as follows: -----R Neck: -2.9 -----L Neck: -3.1 -----R Total: -2.8 -----L Total: -3.0 Z Score values are as follows: -----R Neck: -0.6 -----L Neck: -0.8 -----R Total: -0.7 -----L Total: -0.9 Bone mineral density first at [facility] [place]. FRAX%s: The graph provided illustrates a 27.9% chance for a major osteoporotic fx and a 12.6% chance for the hips probability for fx in 10 years time. IMPRESSION: Osteoporosis (T Score less than -2.5). There is increased fracture risk and therapy is usually indicated based on age. Re-Screen 1-2 years. NOTE: T-SCORE=SD OF THE YOUNG ADULT MEAN.
== END | disposition home or self-care (01) ==
LOC: RADMAMWWP 10:12
PROVIDERS: ATTEND Family Medicine
DX: Z12.31 Encounter for screening mammogram for malignant neoplasm of breast (principal); M81.0 Age-related osteoporosis without current pathological fracture; M85.89 Other specified disorders of bone density and structure, multiple sites; Z80.3 Family history of malignant neoplasm of breast; Z78.0 Asymptomatic menopausal state
CPT/HCPCS: 77063; 77067; 77080

== ENCOUNTER → 2023-10-06 | Outpatient (CLI) | payer MEDICARE ==
[2023-10-06] MEDS: DENOSUMAB 60 MG/ML 1 ML SYRINGE SQ NR (14:10)
[2023-10-06 14:15] VITALS: BP 122/69; PULSE 80; RESP 16; TEMP 97.9
== END ==
LOC: PROCWHC3 14:05
PROVIDERS: ATTEND Family Medicine
DX: M81.0 Age-related osteoporosis without current pathological fracture (principal)
CPT/HCPCS: 96372; J0897

== ENCOUNTER → 2024-01-19 | Outpatient (CLI) | payer MEDICARE ==
[2024-01-24 11:52] LABS: Vitamin A 43 ug/dL (38-106)
== END | disposition home or self-care (01) ==
LOC: LABWHC1 09:57
PROVIDERS: ATTEND Family Medicine
DX: R79.0 Abnormal level of blood mineral (principal)
CPT/HCPCS: 36415; 82525; 84590

== ENCOUNTER → 2024-03-05 | Outpatient (CLI) | payer MEDICARE ==
--- NOTE | 2024-03-11 15:44 | MM ---
Reason for Exam: Screening (asymptomatic). Last screening mammogram was performed 12 month(s) ago. Patient History: Menarche at age 13. First Full-Term at age 21. Left ovary removed at age 46. Right ovary removed at age 46. Hysterectomy at age 37. Currently using Estrogen, for 10 years. Paternal aunt had breast cancer at or over age 50. Risk Values: Michelle 5 year model risk: 1.6%. NCI Lifetime model risk: 3.0%. Prior Study Comparison: 03/04/2023 Bilateral MG 3D screening mammo w/cad, [facility]. Tissue Density: The breasts are heterogeneously dense, which may obscure small masses. Findings: Analyzed By CAD. The pattern is symmetrical. There is a distortion in the outer left craniocaudal view 4.6 cm from the nipple. Additional workup is recommended. Benign vascular calcifications present bilaterally. No suspicious groups of microcalcifications, spiculated or lobular masses, architectural distortion or other secondary signs of malignancy are mammographically apparent. Overall Assessment: Incomplete: need additional imaging evaluation, BI-RAD 0 Management: Diagnostic Mammogram of the left breast. A negative mammogram report should not preclude additional follow up of suspicious palpable abnormalities. Patient should continue monthly self breast exam. A clinical breast exam by your physician is recommended on an annual basis and results should be correlated with mammographic findings. Note on Michelle scores and lifetime risk: 1. A Michelle score greater than 3% is considered moderate risk. If this is the case, consider specialist referral to assess eligibility for a risk reducing agent. 2. If overall lifetime risk for the development of breast cancer is 20% or higher, the patient may qualify for future screening with alternating mammogram and breast MRI. [facility], , 03/11/2024 3:41 PM. Electronically signed and approved by: Paul Ruiz D.O. Radiologis
== END | disposition home or self-care (01) ==
LOC: RADMAMWWP 09:50
PROVIDERS: ATTEND Family Medicine
DX: Z12.31 Encounter for screening mammogram for malignant neoplasm of breast (principal); R92.333 Mammographic heterogeneous density, bilateral breasts; Z80.3 Family history of malignant neoplasm of breast
CPT/HCPCS: 77063; 77067

== ENCOUNTER → 2024-03-14 | Outpatient (CLI) | payer MEDICARE ==
--- NOTE | 2024-03-14 07:37 | MM ---
Reason for Exam: Additional evaluation requested from prior study. Last screening mammogram was performed less than 1 month ago. Patient History: Menarche at age 13. First Full-Term at age 21. Left ovary removed at age 46. Right ovary removed at age 46. Hysterectomy at age 37. Currently using Estrogen, for 10 years. Paternal aunt had breast cancer at or over age 50. Risk Values: Michelle 5 year model risk: 1.6%. NCI Lifetime model risk: 3.0%. Prior Study Comparison: 02/18/2022 Bilateral MG 3D screening mammo w/cad, [facility]. 03/04/2023 Bilateral MG 3D screening mammo w/cad, [facility]. 03/05/2024 Bilateral MG 3D screening mammo w/cad, [facility]. Tissue Density: Left: The breasts are heterogeneously dense, which may obscure small masses. Findings: Analyzed By CAD. Findings felt to reflect summation density. Precautionary 6 month follow-up advised. Overall Assessment: Probably benign, BI-RAD 3 Management: Diagnostic Mammogram of the left breast in 6 months. . Results were given to the patient verbally at the time of exam. Patient should continue monthly self-breast exams. A clinical breast exam by your physician is recommended on an annual basis. This exam should not preclude additional follow-up of suspicious palpable abnormalities. Note on Michelle scores and lifetime risk: 1. A Michelle score greater than 3% is considered moderate risk. If this is the case, consider specialist referral to assess eligibility for a risk reducing agent. 2. If overall lifetime risk for the development of breast cancer is 20% or higher, the patient may qualify for future screening with alternating mammogram and breast MRI. [facility], , 03/14/2024 7:32 AM. Electronically signed and approved by: Ford Garnica M.D. Radiologis
== END | disposition home or self-care (01) ==
LOC: RADMAMWWP 07:06
PROVIDERS: ATTEND Family Medicine
DX: R92.8 Other abnormal and inconclusive findings on diagnostic imaging of breast (principal); Z90.722 Acquired absence of ovaries, bilateral; Z80.3 Family history of malignant neoplasm of breast; R92.332 Mammographic heterogeneous density, left breast
CPT/HCPCS: 77065; G0279; 77061

== ENCOUNTER → 2024-04-09 | Outpatient (CLI) | payer MEDICARE ==
[2024-04-09 14:07] VITALS: BP 105/68; PULSE 80; RESP 16; TEMP 98
[2024-04-09] MEDS: DENOSUMAB 60 MG/ML 1 ML SYRINGE SQ NR (14:07)
== END ==
LOC: PROCWHC3 13:53
PROVIDERS: ATTEND Family Medicine
DX: M81.0 Age-related osteoporosis without current pathological fracture (principal)
CPT/HCPCS: 96372; J0897

== ENCOUNTER → 2024-09-12 | Outpatient (CLI) | payer MEDICARE ==
--- NOTE | 2024-09-12 10:49 | MM ---
Reason for Exam: Follow-up at short interval from prior study. Last screening mammogram was performed 6 month(s) ago. Patient History: Menarche at age 13. First Full-Term at age 21. Left ovary removed at age 46. Right ovary removed at age 46. Hysterectomy at age 37. Currently using Estrogen, for 10 years. Paternal aunt had breast cancer at or over age 50. Risk Values: Michelle 5 year model risk: 1.6%. NCI Lifetime model risk: 3.0%. Prior Study Comparison: 03/04/2023 Bilateral MG 3D screening mammo w/cad, [facility]. 03/05/2024 Bilateral MG 3D screening mammo w/cad, [facility]. 03/14/2024 Left MG 3D work up w/cad , [facility]. Tissue Density: Left: There are scattered areas of fibroglandular density. Findings: Analyzed By CAD. Area of concern/asymmetry compresses out on spot compression imaging. No suspicious masses, calcifications or distortions. Overall Assessment: Benign, BI-RAD 2 Management: Screening Mammogram of both breasts in 6 months. Results were given to the patient verbally at the time of exam. Patient should continue monthly self-breast exams. A clinical breast exam by your physician is recommended on an annual basis. This exam should not preclude additional follow-up of suspicious palpable abnormalities. Note on Michelle scores and lifetime risk: 1. A Michelle score greater than 3% is considered moderate risk. If this is the case, consider specialist referral to assess eligibility for a risk reducing agent. 2. If overall lifetime risk for the development of breast cancer is 20% or higher, the patient may qualify for future screening with alternating mammogram and breast MRI. [facility], , 09/12/2024 10:46 AM. Electronically signed and approved by: Joes Short DO
== END | disposition home or self-care (01) ==
LOC: RADMAMWWP 10:27
PROVIDERS: ATTEND Family Medicine
DX: R92.30 Dense breasts, unspecified (principal); R92.322 Mammographic fibroglandular density, left breast; Z80.3 Family history of malignant neoplasm of breast
CPT/HCPCS: 77061; 77065

== ENCOUNTER 2024-10-22 11:34 | Emergency (ER) | payer MEDICARE ==
--- NOTE | 2024-10-22 13:34 | XR ---
EXAMINATION TYPE: XR chest 2V DATE OF EXAM: 10/22/2024 1:28 PM COMPARISON: None. CLINICAL INDICATION: Female, 78 years old with history of KATT: Shortness of breath TECHNIQUE: XR chest 2V views of the chest are obtained. FINDINGS: Scattered senescent parenchymal changes noted. Hyperinflation compatible with COPD. No evidence for infiltrate. No evidence for atelectasis. Heart size is stable. Mediastinal structures are stable and grossly unremarkable. No evidence for hilar prominence. Degenerative changes dorsal spine. IMPRESSION: 1. No evidence for acute pulmonary disease. [facility], , 10/22/2024 1:32 PM
[2024-10-22 14:31] LABS: Basophils # (A) 0.09 10*3/uL (0.00-0.10); Basophils % (A) 1.4 %; Eosinophils # (A) 0.22 10*3/uL (0.04-0.35); Eosinophils % (A) 3.5 %; HCT 43.1 % (37.2-46.3); HGB 14.2 g/dL (12.0-15.0); Lymphocytes % (A) 28.5 %; MCH 30.6 pg (27.0-32.0); MCHC 32.9 g/dL (32.0-37.0); MCV 92.9 fL (80.0-97.0); Mean Platelet Volume 11.1 fL (9.5-12.2); Monocytes # (A) 0.43 10*3/uL (0.20-1.00); Monocytes % (A) 6.8 %; Neutrophils # (A) 3.77 10*3/uL (1.80-7.70); Neutrophils % (A) 59.6 %; Platelet Count 173 10*3/uL (140-440); RBC 4.64 10*6/uL (4.10-5.20); RDW 13.1 % (11.5-14.5); WBC 6.32 10*3/uL (4.50-10.00)
--- NOTE | 2024-10-22 14:42 | ED ---
General Adult HPI - General Chief complaint: Shortness of Breath Stated complaint: KATT Time Seen by Provider: 10/22/24 14:28 Source: patient Mode of arrival: wheelchair Limitations: no limitations - History of Present Illness Initial comments: Dictation was produced using [employer] dictation software. please excuse any grammatical, word or spelling errors. Chief Complaint: 78-year-old female presents to the emergency department for hallucinations History of Present Illness: Patient 78-year-old female presents to the emergency department after having some hallucinations today. Patient has been dealing with long COVID along with pneumonia. Patient has significant history of A-fib, fibromyalgia and thyroid disease. Patient since being in the emergency department has been at baseline. Son is at the bedside states that she is well. States that she was witnessed to have been confused she specifically had some pills in her hand and was not sure what to do with him. The ROS documented in this emergency department record has been reviewed and confirmed by me. Those systems with pertinent positive or negative responses have been documented in the HPI. All other systems are other negative and/or noncontributory. - Related Data Home Medications Medication Instructions Recorded Confirmed Cyanocobalamin [Vitamin B-12 1,000 mcg SQ Q14D 12/30/16 04/09/24 Injection] Ergocalciferol (Vitamin D2) 100,000 unit PO MOFR 12/30/16 04/09/24 [Vitamin D2] Escitalopram [Lexapro] 20 mg PO DAILY 12/30/16 04/09/24 L.acidoph,Paracasei, B.lactis 1 cap PO DAILY 12/30/16 04/09/24 [Probiotic] Levothyroxine Sodium [Synthroid] 25 mcg PO DAILY 12/30/16 04/09/24 Magnesium 200 mg PO DAILY PRN 12/30/16 04/09/24 Super Enzyme 1 tab PO DAILY 12/30/16 04/09/24 Cholecalciferol [Vitamin D3 (25 125 mcg PO DAILY 06/07/21 04/09/24 Mcg = 1000 Iu)] Vitamin A Acetate [Vitamin A] 10,000 units PO DAILY 06/07/21 04/09/24 calcitrioL [Rocaltrol (GEQ)] 0.5 mcg PO BID 06/07/21 04/09/24 Metoprolol Tartrate [Lopressor] 12.5 mg PO BID 11/15/22 04/09/24 Mavacamten [Camzyos] 1 tab PO DAILY 10/06/23 04/09/24 Isosorbide Mononitrate ER [Imdur] 30 mg PO DAILY 04/09/24 04/09/24 Previous Rx's Medication Instructions Recorded Apixaban [Eliquis] 5 mg PO BID 30 Days #60 tab 06/08/21 Allergies Allergy/AdvReac Type Severity Reaction Status Date / Time cephalexin [From Keflex] AdvReac Rash/Hives Verified 10/22/24 11:47 Iodinated Contrast Media AdvReac flushing Verified 10/22/24 11:47 iodine AdvReac Rash/Hives Verified 10/22/24 11:47 shellfish derived [Shellfish] AdvReac Rash/Hives Verified 10/22/24 11:47 Review of Systems ROS Statement: Those systems with pertinent positive or pertinent negative responses have been documented in the HPI. ROS Other: All systems not noted in ROS Statement are negative. Past Medical History Past Medical History: Atrial Fibrillation, Cancer, Fibromyalgia, Osteoarthritis (OA), Rheumatoid Arthritis (RA), Syncope, Thyroid Disorder Additional Past Medical History / Comment(s): Cervical CA years ago; Osteoporosis, Raynaud's, one time seizure after gastric bypass-nothing since, see Dr [facility]ner [facility], lightheaded @times, falls, malabsorption History of Any Multi-Drug Resistant Organisms: MRSA Date of last positivie culture/infection: 2005 MDRO Source:: R index finger L baby finger Past Surgical History: Ablation, Appendectomy, Bariatric Surgery, Cholecystectomy, Hysterectomy, Joint Replacement, Orthopedic Surgery, Tonsillectomy Additional Past Surgical History / Comment(s): Gastric Bypass, & revision; Duod enal Switch; Tummy Tuck, numerous hand surgeries; finger joints replaced, 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 waking up Past Psychological History: Anxiety, PTSD Smoking Status: Never smoker - Past Family History Father Family Medical History: Cancer General Exam - General Exam Comments Initial Comments: PHYSICAL EXAM: General Impression: Alert and oriented x3, not in acute distress HEENT: Normocephalic atraumatic, extra-ocular movements intact, pupils equal and reactive to light bilaterally, mucous membranes moist. Cardiovascular: Heart regular rate and rhythm Chest: Able to complete full sentences, no retractions, no tachypnea Abdomen: abdomen soft, non-tender, non-distended, no organomegaly Musculoskeletal: Pulses present and equal in all extremities, no peripheral edema Motor: no focal deficits noted Neurological: CN II-XII grossly intact, no focal motor or sensory deficits noted Skin: Intact with no visualized rashes Psych: Normal affect and mood Limitations: no limitations Course Vital Signs 10/22/24 11:43 Temperature 98.7 F Pulse Rate 112 H Respiratory 16 Rate Blood Pressure 125/82 O2 Sat by Pulse 98 Oximetry EKG Findings - EKG Comments: EKG Findings:: My EKG interpretation: Ventricular rate 93, sinus rhythm, CT interval 221, QRS 127, QTc 462. No CT prolongation, no QTC prolongation, no ST or T-wave changes noted. EKG compared to September 30, 2021 showing no changes. Overall, this EKG is unremarkable Medical Decision Making - Medical Decision Making Was pt. sent in by a medical professional or institution (, PA, [facility], urgent care, hospital, or penitentiary...) When possible be specific @ -No Did you speak to anyone other than the patient for history (EMS, parent, family, police, friend...)? What history was obtained from this source @ -No Did you review nursing and triage notes (agree or disagree)? Why? @ -I reviewed and agree with nursing and triage notes Were old charts reviewed (outside hosp., previous admission, EMS record, old EKG, old radiological studies, urgent care reports/EKG's, penitentiary records)? Report findings @ -No old charts were reviewed Differential Diagnosis (chest pain, altered mental status, abdominal pain women, abdominal pain men, vaginal bleeding, musculoskeletal, weakness, fever, dyspnea, syncope, headache, dizziness, GI bleed, back pain, seizure, CVA, palpatations, mental health)? @ -Differential Altered Mental Status: Hypoglycemia, DKA, hypercapnia, ETOH, overdose, CO poisoning, trauma, myxedema coma, HTN encephalopathy, infection, encephalitis, psychosis, intercranial hemorrhage, hepatic encephalopathy, meningitis, CVA, this is not meant to be an all-inclusive list EKG interpreted by me (3pts min.). @ -See above X-rays interpreted by me (1pt min.). @ -Chest x-ray is nonacute CT interpreted by me (1pt min.). @ -None done U/S interpreted by me (1pt. min.). @ -None done What testing was considered but not performed or refused? (CT, X-rays, U/S, labs)? Why? @ -None What meds were considered but not given or refused? Why? @ -None Was smoking cessation discussed for >3mins.? @ -No Were there social determinants of health that impacted care today? How? (Homelessness, low income, unemployed, alcoholism, drug addiction, transp ortation, low edu. Level, literacy, decrease access to med. care, skilled nursing, rehab)? @ -No Was there de-escalation of care discussed even if they declined (Discuss DNR or withdrawal of care, Hospice)? DNR status @ -No What co-morbidities impacted this encounter? (DM, HTN, Smoking, COPD, CAD, Cancer, CVA, ARF, Chemo, Hep., AIDS, mental health diagnosis, sleep apnea, morbid obesity)? @ -None Was patient admitted / discharged? Hospital course, mention meds given and route, prescriptions, significant lab abnormalities, going to OR and other pertinent info. @ -78-year-old female brought in for acute episode of confusion. No high risk features were discussed by son at the bedside who aids in providing history present illness. Vital signs upon arrival are within acceptable limits. Labs unremarkable. Patient does not feel CT scan of the brain is necessary. I believe that reasonable given that she has no focal neurologic deficits furthermore she did not present with any acute high risk features. Patient be discharged vies follow-up with primary care doctor Did you discuss the management of the patient with other professionals (professionals i.e. , PA, [facility]AR[facility] PELLER, lab, RT, psych nurse, perinatal social worker, digital traffic coordinator, teacher, chief customer officer, patient case coordinator)? Give summary @ -No Was critical care preformed (if so, how long)? @ -No Undiagnosed new problem with uncertain prognosis? @ -No Drug Therapy requiring intensive monitoring for toxicity (Heparin, Nitro, Insulin, Cardizem)? @ -No Were any procedures done? @ -No Diagnosis/symptom? Acute, or Chronic, or Acute on Chronic? Uncomplicated (w ithout systemic symptoms) or Complicated (systemic symptoms)? @ -Altered mental status Side effects of treatment? @ -No Exacerbation, Progression, or Severe Exacerbation? @ -No Poses a threat to life or bodily function? How? (Chest pain, USA, GA, pneumonia, PE, COPD, DKA, ARF, appy, cholecystitis, CVA, Diverticulitis, Homicidal, Suicidal, threat to staff... and all critical care pts) @ -No - Lab Data Result diagrams: 10/22/24 14:23 10/22/24 14:23 Lab Results 10/22/24 10/22/24 10/22/24 Range/Units 14:23 14:23 14:31 WBC 6.32 (4.50-10.00) 10*3/uL RBC 4.64 (4.10-5.20) 10*6/uL Hgb 14.2 (12.0-15.0) g/dL Hct 43.1 (37.2-46.3) % MCV 92.9 (80.0-97.0) fL MCH 30.6 (27.0-32.0) pg MCHC 32.9 (32.0-37.0) g/dL Plt Count 173 (140-440) 10*3/uL MPV 11.1 (9.5-12.2) fL Immature Gran % (Auto) 0.2 % Neutrophils % 59.6 % Lymphocytes % 28.5 % Monocytes % 6.8 % Eosinophils % 3.5 % Basophils % 1.4 % Immature Gran # 0.01 (0.00-0.04) 10*3/uL Neutrophils # 3.77 (1.80-7.70) 10*3/uL Lymphocytes # 1.80 (0.90-5.00) 10*3/uL Monocytes # 0.43 (0.20-1.00) 10*3/uL Eosinophils # 0.22 (0.04-0.35) 10*3/uL Basophils # 0.09 (0.00-0.10) 10*3/uL Sodium 144 (137-145) mmol/L Potassium 4.9 (3.5-5.1) mmol/L Chloride 108 H (98-107) mmol/L Carbon Dioxide 22 (22-30) mmol/L Anion Gap 14 mmol/L BUN 13 (7-17) mg/dL Creatinine 0.57 (0.52-1.04) mg/dL Est GFR (CKD-EPI)AfAm >90 (>60 ml/min/1.73 sqM) Est GFR (CKD-EPI)NonAf 90 (>60 ml/min/1.73 sqM) Glucose 72 L (74-99) mg/dL Calcium 9.7 (8.4-10.2) mg/dL Total Bilirubin 0.6 (0.2-1.3) mg/dL AST 35 (14-36) U/L ALT 29 (4-34) U/L Alkaline Phosphatase 63 (38-126) U/L Total Protein 7.0 (6.3-8.2) g/dL Albumin 4.5 (3.5-5.0) g/dL Urine Color Colorless Urine Appearance Clear (Clear) Urine pH 5.5 (5.0-8.0) Ur Specific [place] 1.005 (1.001-1.035) Urine Protein Negative (Negative) Urine Glucose (UA) Negative (Negative) Urine Ketones 1+ H (Negative) Urine Blood Large H (Negative) Urine Nitrite Negative (Negative) Urine Bilirubin Negative (Negative) Urine Urobilinogen <2.0 (<2.0) mg/dL Ur Leukocyte Esterase Trace H (Negative) Urine RBC 38 H (0-5) /hpf Urine WBC 10 H (0-5) /hpf Urine Bacteria Rare H (None) /hpf Urine Mucus Rare H (None) /hpf Disposition Clinical Impression: AMS (altered mental status) Disposition: HOME SELF-CARE Condition: Good Instructions (If sedation given, give patient instructions): Acute Delirium (ED) Is patient prescribed a controlled substance at d/c from ED?: No Referrals: Nayla Hidalgo MD [Primary Care Provider] - 1-2 days Time of Disposition: 15:12
[2024-10-22 14:56] LABS: Appearance,Urine Clear (Clear); Bacteria,Urine Rare /hpf; Bilirubin,Urine Negative (Negative); Blood,Urine Large (Negative); Color,Urine Colorless; Glucose,Urine (UA) Negative (Negative); Ketones,Urine 1+ (Negative); Leukocyte Esterase,Urine Trace (Negative); Mucus,Urine Rare /hpf; Nitrite,Urine Negative (Negative); PH, Urine 5.5 (5.0-8.0); Protein,Urine Negative (Negative); RBC,Urine 38 /hpf (0-5); Specific Gravity,Urine 1.005 (1.001-1.035); Urobilinogen,Urine <2.0 mg/dL (<2.0); WBC,Urine 10 /hpf (0-5)
[2024-10-22 15:07] LABS: ALT 29 U/L (4-34); AST 35 U/L (14-36); African American GFR (CKD) >90 (>60 ml/min/1.73 sqM); Albumin 4.5 g/dL (3.5-5.0); Alkaline Phosphatase 63 U/L (38-126); Anion Gap 14 mmol/L; Blood Urea Nitrogen 13 mg/dL (7-17); Calcium 9.7 mg/dL (8.4-10.2); Carbon Dioxide 22 mmol/L (22-30); Chloride 108 mmol/L (98-107); Glucose 72 mg/dL (74-99); Non-African American GFR(CKD) 90 (>60 ml/min/1.73 sqM); Potassium 4.9 mmol/L (3.5-5.1); Sodium 144 mmol/L (137-145); Total Bilirubin 0.6 mg/dL (0.2-1.3)
[2024-10-22 15:40] VITALS: BP 133/76; PULSE 92; RESP 18; TEMP 98.3
== END 2024-10-22 15:40 | disposition home or self-care (01) ==
LOC: EC 11:34
DX: R53.1 Weakness (principal); I48.91 Unspecified atrial fibrillation; Z88.1 Allergy status to other antibiotic agents; Z91.013 Allergy to seafood; Z91.041 Radiographic dye allergy status; Z88.8 Allergy status to other drugs, medicaments and biological substances
CPT/HCPCS: 36415; 71046; 80053; 81001; 85025; 93005; 99285

== ENCOUNTER 2024-10-24 11:56 | Observation (INO) | payer MEDICARE ==
--- NOTE | 2024-10-24 12:35 | ED ---
General Adult HPI - General Chief complaint: Chest Pain Stated complaint: Chest Pain Time Seen by Provider: 10/24/24 12:00 Source: patient, EMS, RN notes reviewed Mode of arrival: EMS Limitations: altered mental status - History of Present Illness Initial comments: Patient is a 78-year-old female present to the emergency department with concerns for chest discomfort. Patient is completely unclear when this started. Patient admits to having memory problems. Patient states discomfort is mild at this time. Discomfort feels like pressure. Patient believes she was short of breath and nauseated earlier. No diaphoresis. Patient believes she has a history of A-fib. - Related Data Home Medications Medication Instructions Recorded Confirmed Cyanocobalamin [Vitamin B-12 1,000 mcg SQ Q14D 12/30/16 04/09/24 Injection] Ergocalciferol (Vitamin D2) 100,000 unit PO MOFR 12/30/16 04/09/24 [Vitamin D2] Escitalopram [Lexapro] 20 mg PO DAILY 12/30/16 04/09/24 L.acidoph,Paracasei, B.lactis 1 cap PO DAILY 12/30/16 04/09/24 [Probiotic] Levothyroxine Sodium [Synthroid] 25 mcg PO DAILY 12/30/16 04/09/24 Magnesium 200 mg PO DAILY PRN 12/30/16 04/09/24 Super Enzyme 1 tab PO DAILY 12/30/16 04/09/24 Cholecalciferol [Vitamin D3 (25 125 mcg PO DAILY 06/07/21 04/09/24 Mcg = 1000 Iu)] Vitamin A Acetate [Vitamin A] 10,000 units PO DAILY 06/07/21 04/09/24 calcitrioL [Rocaltrol (GEQ)] 0.5 mcg PO BID 06/07/21 04/09/24 Metoprolol Tartrate [Lopressor] 12.5 mg PO BID 11/15/22 04/09/24 Mavacamten [Camzyos] 1 tab PO DAILY 10/06/23 04/09/24 Isosorbide Mononitrate ER [Imdur] 30 mg PO DAILY 04/09/24 04/09/24 Previous Rx's Medication Instructions Recorded Apixaban [Eliquis] 5 mg PO BID 30 Days #60 tab 06/08/21 Allergies Allergy/AdvReac Type Severity Reaction Status Date / Time cephalexin [From Keflex] AdvReac Rash/Hives Verified 10/24/24 12:06 Iodinated Contrast Media AdvReac flushing Verified 10/24/24 12:06 iodine AdvReac Rash/Hives Verified 10/24/24 12:06 shellfish derived [Shellfish] AdvReac Rash/Hives Verified 10/24/24 12:06 Review of Systems ROS Statement: Those systems with pertinent positive or pertinent negative responses have been documented in the HPI. ROS Other: All systems not noted in ROS Statement are negative. Constitutional: Denies: fever Eyes: Denies: eye pain Respiratory: Reports: as per HPI Cardiovascular: Reports: as per HPI, chest pain Gastrointestinal: Reports: nausea. Denies: abdominal pain Musculoskeletal: Denies: back pain Past Medical History Past Medical History: Atrial Fibrillation, Cancer, Fibromyalgia, Osteoarthritis (OA), Rheumatoid Arthritis (RA), Syncope, Thyroid Disorder Additional Past Medical History / Comment(s): Cervical CA years ago; Osteoporosis, Raynaud's, one time seizure after gastric bypass-nothing since, see Dr Sumner [facility], lightheaded @times, falls, malabsorption History of Any Multi-Drug Resistant Organisms: MRSA Date of last positivie culture/infection: 2005 MDRO Source:: R index finger L baby finger Past Surgical History: Ablation, Appendectomy, Bariatric Surgery, Cholecystectomy, Hysterectomy, Joint Replacement, Orthopedic Surgery, Tonsillectomy Additional Past Surgical History / Comment(s): Gastric Bypass, & revision; Duodenal Switch; Tummy Tuck, numerous hand surgeries; finger joints replaced, 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 waking up Past Psychological History: Anxiety, PTSD Smoking Status: Never smoker Past Alcohol Use History: None Reported Past Drug Use History: None Reported - Past Family History Father Family Medical History: Cancer General Exam Limitations: no limitations General appearance: alert, in no apparent distress Eye exam: Present: normal appearance Neck exam: Present: normal inspection Respiratory exam: Present: normal lung sounds bilaterally. Absent: respiratory distress Cardiovascular Exam: Present: regular rate, normal rhythm, normal heart sounds Expanded Peripheral pulses: 2+: Radial (R), Radial (L), Posterior Tibialis (R), Posterior Tibialis (L) GI/Abdominal exam: Present: soft. Absent: tenderness Extremities exam: Present: normal inspection. Absent: pedal edema, calf tenderness Neurological exam: Present: alert Psychiatric exam: Present: normal affect, normal mood Skin exam: Present: normal color Course Vital Signs 10/24/24 11:59 Temperature 98.5 F Pulse Rate 91 Respiratory 18 Rate Blood Pressure 136/72 O2 Sat by Pulse 97 Oximetry EKG Findings - EKG Results: EKG: interpreted by ERMD (Left axis. Left bundle branch block. Nonspecific ST- T.), sinus rhythm Medical Decision Making - Medical Decision Making Was pt. sent in by a medical professional or institution (, PA, MARKETING MANAGER, urgent care, hospital, or custodial...) When possible be specific @ -Patient presents from primary care physician Did you speak to anyone other than the patient for history (EMS, parent, family, police, friend...)? What history was obtained from this source @ -No Did you review nursing and triage notes (agree or disagree)? Why? @ -I reviewed and agree with nursing and triage notes Were old charts reviewed (outside hosp., previous admission, EMS record, old EKG, old radiological studies, urgent care reports/EKG's, custodial records)? Report findings @ -EKG reviewed from primary care physician which also shows left bundle branch block. Differential Diagnosis (chest pain, altered mental status, abdominal pain women, abdominal pain men, vaginal bleeding, weakness, fever, dyspnea, syncope, headache, dizziness, GI bleed, back pain, seizure, CVA, palpatations, mental health, musculoskeletal)? @ -Differential Chest Pain: Stable Angina, Unstable Angina, STEMI, NSTEMI Aortic Dissection, Pneumothorax, Musculoskeletal, Esophageal Spasm GERD, Cholecystitis, Pancreatitis, Zoster, this is not meant to be an all-inclusive list. EKG interpreted by me (3pts min.). @ -As above X-rays interpreted by me (1pt min.). @ -Chest x-ray shows no acute process CT interpreted by me (1pt min.). @ -None done U/S interpreted by me (1pt. min.). @ -None done What testing was considered but not performed or refused? (CT, X-rays, U/S, labs)? Why? @ -None What meds were considered but not given or refused? Why? @ -None Did you discuss the management of the patient with other professionals (professionals i.e. , PA, MARKETING MANAGER, lab, RT, psych nurse, social worker clinical, head cager, teacher, principal gifts officer, case work aide)? Give summary @ -Case discussed with Dr. Cerna who will admit covering Dr. Hidalgo Was smoking cessation discussed for >3mins.? @ -No Was critical care preformed (if so, how long)? @ -No Were there social determinants of health that impacted care today? How? (Homelessness, low income, unemployed, alcoholism, drug addiction, transportation, low edu. Level, literacy, decrease access to med. care, penitentiary, rehab)? @ -No Was there de-escalation of care discussed even if they declined (Discuss DNR or withdrawal of care, Hospice)? DNR status @ -No What co-morbidities impacted this encounter? (DM, HTN, Smoking, COPD, CAD, Cancer, CVA, ARF, Chemo, Hep., AIDS, mental health diagnosis, sleep apnea, morbid obesity)? @ -None Was patient admitted / discharged? Hospital course, mention meds given and route, prescriptions, significant lab abnormalities, going to OR and other pertinent info. @ -Patient presents with chest discomfort. Initial ER evaluation unremarkable. Patient will be admitted with cardiac consult. Patient reevaluated and updated. Admission orders written. Undiagnosed new problem with uncertain prognosis? @ -No Drug Therapy requiring intensive monitoring for toxicity (Heparin, Nitro, Insulin, Cardizem)? @ -No Were any procedures done? @ -No Diagnosis/symptom? @ -Chest pain Acute, or Chronic, or Acute on Chronic? @ -Acute Uncomplicated (without systemic symptoms) or Complicated (systemic symptoms)? @ -Default Side effects of treatment? @ -No Exacerbation, Progression, or Severe Exacerbation? @ -No Poses a threat to life or bodily function? How? (Chest pain, [place], ME, pneumonia, PE, COPD, DKA, ARF, appy, cholecystitis, CVA, Diverticulitis, Homicidal, Suicidal, threat to staff... and all critical care pts) @ -Threat to cardiac function - Lab Data Result diagrams: 10/24/24 12:58 10/24/24 12:58 Lab Results 10/24/24 10/24/24 10/24/24 Range/Units 12:58 12:58 12:58 WBC 5.87 (4.50-10.00) 10*3/uL RBC 4.01 L (4.10-5.20) 10*6/uL Hgb 12.4 (12.0-15.0) g/dL Hct 37.1 L (37.2-46.3) % MCV 92.5 (80.0-97.0) fL MCH 30.9 (27.0-32.0) pg MCHC 33.4 (32.0-37.0) g/dL Plt Count 157 (140-440) 10*3/uL MPV 11.2 (9.5-12.2) fL Immature Gran % (Auto) 0.3 % Neutrophils % 62.9 % Lymphocytes % 26.2 % Monocytes % 7.7 % Eosinophils % 1.7 % Basophils % 1.2 % Immature Gran # 0.02 (0.00-0.04) 10*3/uL Neutrophils # 3.69 (1.80-7.70) 10*3/uL Lymphocytes # 1.54 (0.90-5.00) 10*3/uL Monocytes # 0.45 (0.20-1.00) 10*3/uL Eosinophils # 0.10 (0.04-0.35) 10*3/uL Basophils # 0.07 (0.00-0.10) 10*3/uL PT 11.6 (10.0-12.5) sec INR 1.1 (<1.2) APTT 24.4 (22.0-30.0) sec D-Dimer 0.37 (<0.60) mg/L FEU Sodium 142 (137-145) mmol/L Potassium 3.9 (3.5-5.1) mmol/L Chloride 111 H (98-107) mmol/L Carbon Dioxide 19 L (22-30) mmol/L Anion Gap 12 mmol/L BUN 8 (7-17) mg/dL Creatinine 0.58 (0.52-1.04) mg/dL Est GFR (CKD-EPI)AfAm >90 (>60 ml/min/1.73 sqM) Est GFR (CKD-EPI)NonAf 89 (>60 ml/min/1.73 sqM) Glucose 77 (74-99) mg/dL Calcium 8.6 (8.4-10.2) mg/dL Magnesium 1.7 (1.6-2.3) mg/dL Total Bilirubin 0.5 (0.2-1.3) mg/dL AST 25 (14-36) U/L ALT 20 (4-34) U/L Alkaline Phosphatase 49 (38-126) U/L Troponin I (0.000-0.034) ng/mL NT-Pro-B Natriuret Pep 3480 pg/mL Total Protein 5.8 L (6.3-8.2) g/dL Albumin 3.7 (3.5-5.0) g/dL Amylase 50 (30-110) U/L Lipase 53 (23-300) U/L 10/24/24 Range/Units 12:58 WBC (4.50-10.00) 10*3/uL RBC (4.10-5.20) 10*6/uL Hgb (12.0-15.0) g/dL Hct (37.2-46.3) % MCV (80.0-97.0) fL MCH (27.0-32.0) pg MCHC (32.0-37.0) g/dL Plt Count (140-440) 10*3/uL MPV (9.5-12.2) fL Immature Gran % (Auto) % Neutrophils % % Lymphocytes % % Monocytes % % Eosinophils % % Basophils % % Immature Gran # (0.00-0.04) 10*3/uL Neutrophils # (1.80-7.70) 10*3/uL Lymphocytes # (0.90-5.00) 10*3/uL Monocytes # (0.20-1.00) 10*3/uL Eosinophils # (0.04-0.35) 10*3/uL Basophils # (0.00-0.10) 10*3/uL PT (10.0-12.5) sec INR (<1.2) APTT (22.0-30.0) sec D-Dimer (<0.60) mg/L FEU Sodium (137-145) mmol/L Potassium (3.5-5.1) mmol/L Chloride (98-107) mmol/L Carbon Dioxide (22-30) mmol/L Anion Gap mmol/L BUN (7-17) mg/dL Creatinine (0.52-1.04) mg/dL Est GFR (CKD-EPI)AfAm (>60 ml/min/1.73 sqM) Est GFR (CKD-EPI)NonAf (>60 ml/min/1.73 sqM) Glucose (74-99) mg/dL Calcium (8.4-10.2) mg/dL Magnesium (1.6-2.3) mg/dL Total Bilirubin (0.2-1.3) mg/dL AST (14-36) U/L ALT (4-34) U/L Alkaline Phosphatase (38-126) U/L Troponin I 0.013 (0.000-0.034) ng/mL NT-Pro-B Natriuret Pep pg/mL Total Protein (6.3-8.2) g/dL Albumin (3.5-5.0) g/dL Amylase (30-110) U/L Lipase (23-300) U/L Disposition Clinical Impression: Chest pain Disposition: ADMITTED IP TO THIS HOSP Is patient prescribed a controlled substance at d/c from ED?: No Referrals: Nayla Hidalgo MD [Primary Care Provider] - 1-2 days Time of Disposition: 14:10
[2024-10-24] MEDS: NITROGLYCERIN OINT 1 INCH/GM PACKET TOPICAL STA (13:01)
[2024-10-24] MEDS: ASPIRIN 81 MG PO STA (13:04)
[2024-10-24 13:19] LABS: Basophils # (A) 0.07 10*3/uL (0.00-0.10); Basophils % (A) 1.2 %; Eosinophils # (A) 0.10 10*3/uL (0.04-0.35); Eosinophils % (A) 1.7 %; HCT 37.1 % (37.2-46.3); HGB 12.4 g/dL (12.0-15.0); Lymphocytes # (A) 1.54 10*3/uL (0.90-5.00); Lymphocytes % (A) 26.2 %; MCH 30.9 pg (27.0-32.0); MCHC 33.4 g/dL (32.0-37.0); MCV 92.5 fL (80.0-97.0); Monocytes # (A) 0.45 10*3/uL (0.20-1.00); Monocytes % (A) 7.7 %; Neutrophils # (A) 3.69 10*3/uL (1.80-7.70); Neutrophils % (A) 62.9 %; Platelet Count 157 10*3/uL (140-440); RBC 4.01 10*6/uL (4.10-5.20); RDW 12.8 % (11.5-14.5); WBC 5.87 10*3/uL (4.50-10.00)
--- NOTE | 2024-10-24 13:22 | XR ---
EXAMINATION TYPE: XR chest 2V DATE OF EXAM: 10/24/2024 1:14 PM COMPARISON: 10/22/2024 CLINICAL INDICATION: Female, 78 years old with history of Chest Pain: Shortness of breath TECHNIQUE: XR chest 2V views of the chest are obtained. FINDINGS: Scattered senescent parenchymal changes noted. Hyperinflation compatible with COPD. No evidence for infiltrate. No evidence for atelectasis. Heart size is stable. Mediastinal structures are stable and grossly unremarkable. No evidence for hilar prominence. Degenerative changes dorsal spine. IMPRESSION: 1. No evidence for acute pulmonary disease. [facility], , 10/24/2024 1:20 PM
[2024-10-24 13:31] LABS: ALT 20 U/L (4-34); AST 25 U/L (14-36); African American GFR (CKD) >90 (>60 ml/min/1.73 sqM); Albumin 3.7 g/dL (3.5-5.0); Alkaline Phosphatase 49 U/L (38-126); Amylase 50 U/L (30-110); Anion Gap 12 mmol/L; Blood Urea Nitrogen 8 mg/dL (7-17); Calcium 8.6 mg/dL (8.4-10.2); Carbon Dioxide 19 mmol/L (22-30); Chloride 111 mmol/L (98-107); Glucose 77 mg/dL (74-99); Lipase 53 U/L (23-300); Magnesium 1.7 mg/dL (1.6-2.3); Non-African American GFR(CKD) 89 (>60 ml/min/1.73 sqM); Potassium 3.9 mmol/L (3.5-5.1); Sodium 142 mmol/L (137-145); Total Protein 5.8 g/dL (6.3-8.2)
[2024-10-24 13:38] LABS: INR 1.1 (<1.2); Partial Thromboplastin Time 24.4 sec (22.0-30.0); Prothrombin Time 11.6 sec (10.0-12.5)
[2024-10-24 13:40] LABS: NT-Pro-B-Type Natriuretic Pept 3480 pg/mL
[2024-10-24] MEDS ORDERED: NITROGLYCERIN SL TABS 0.4 MG TAB SUBLINGUAL PRN (14:10)
[2024-10-24] MEDS: MORPHINE SULFATE 2 MG/ML SYRINGE IVP STA (14:56)
[2024-10-24] MEDS ORDERED: [UNRECOGNIZED DRUG - OTHER] PO SCH (18:30)
[2024-10-24] MEDS: PROLIA 60 MG SQ SCH (21:15)
[2024-10-24] MEDS: APIXABAN 5 MG TAB PO SCH (21:15)
[2024-10-24] MEDS: MAGNESIUM OXIDE 400 MG TAB PO SCH (21:15)
[2024-10-24] MEDS: ALPRAZolam 0.25 MG TAB PO PRN (21:15)
[2024-10-24] MEDS: NITROGLYCERIN OINT 1 INCH/GM PACKET TOPICAL SCH (21:16)
--- NOTE | 2024-10-25 00:41 | HP ---
HISTORY AND PHYSICAL CHIEF COMPLAINT: Chest pain. HISTORY OF PRESENT ILLNESS: This 78-year-old woman with a past medical history of atrial fibrillation, history of fibromyalgia, DJD, rheumatoid arthritis, was evaluated by primary care physician with some shortness of breath. Subsequently, the patient had chest pain. Nitroglycerin was given and the patient was referred to [facility]. The patient had left bundle- branch block on EKG. Initial troponins are 0.013 and 0.016. There is no history of fever, rigors, or chills at this time. PAST MEDICAL HISTORY: Atrial fibrillation, CAD, rheumatoid arthritis. Rest of the history from chart was also reviewed. HOME MEDICATIONS: Reviewed include magnesium. Rest of medications, rest of the chart was also reviewed. ALLERGIES: Keflex. FAMILY HISTORY: History of cancer in the family. SOCIAL HISTORY: No history of smoking or alcohol. REVIEW OF SYSTEMS: Fourteen-point review of systems is negative except as mentioned earlier. PHYSICAL EXAMINATION: VITAL SIGNS: Pulse 91, blood pressure 130/72, respirations 18. HEENT: Conjunctivae normal. NECK: No jugular venous distention. CARDIOVASCULAR: S1, S2. RESPIRATION: Breath sounds diminished at the bases. No rhonchi. No crackles. ABDOMEN: Soft, nontender. LEGS: No edema. No swelling. SKIN: No rash. JOINTS: No active deforming arthropathy. LABORATORY DATA: Reviewed. ASSESSMENT: 1. Chest pain possible unstable angina. 2. Left bundle-branch block in the EKG. 3. History of atrial fibrillation. 4. History of rheumatoid arthritis. 5. History of osteoporosis. 6. History of methicillin-resistant Staphylococcus aureus. 7. History of bariatric surgery. 8. Multiple complex medical issues. RECOMMENDATIONS: In this 78-year-old woman who presented with multiple complex medical issues. We will monitor the patient closely. I would recommend to continue the current management and treatment otherwise. I would recommend Cardiology consultation, rule out myocardial infarction. Unstable angina protocol. Resume the home medications once they are confirmed. We will follow the patient closely with Cardiology. Further recommendations to follow. MMODL / IJN: [id number] /
[2024-10-25] MEDS: LEVOTHYROXINE 25 MCG TAB PO SCH (06:25)
[2024-10-25] MEDS: ASPIRIN 325 MG TAB PO SCH (10:28)
[2024-10-25] MEDS: FOLIC ACID 1 MG TAB PO SCH (10:29)
[2024-10-25] MEDS: CHOLECALCIFEROL 125 MCG (5000 IU) TABLET PO SCH (10:29)
[2024-10-25] MEDS: ESCITALOPRAM 20 MG TAB PO SCH (10:29)
[2024-10-25] MEDS: LACTOBACILLUS ACIDOPHILUS/PECT 1 EACH CAPSULE PO SCH (10:30)
[2024-10-25] MEDS: VITAMIN A 10,000 UNIT (3000 MCG) CAPSULE PO SCH (10:30)
[2024-10-25] MEDS: [UNRECOGNIZED DRUG - OTHER] PO SCH (10:34)
--- NOTE | 2024-10-25 11:29 | CA ---
Transthoracic Echo Report Name: Lety Garcia Age: 78 Gender: F : 1945 Exam Date: 10/25/2024 07:47 Exam Location: [facility] Ht (in): 64 Wt (lb): 110 Ordering Physician: iVkash Lazaro DO Attending/Referring Phys: Pulmonary Specialist Tico Calvo RDCS Procedure CPT: Indications: CP Cardiac Hx: Technical Quality: Good Contrast 1: Total Dose (mL): Contrast 2: Total Dose (mL): MEASUREMENTS (Male / Female) Normal Values 2D ECHO LV Diastolic Diameter PLAX 3.9 cm 4.2 - 5.9 / 3.9 - 5.3 cm LV Systolic Diameter PLAX 3.2 cm IVS Diastolic Thickness 1.2 cm 0.6 - 1.0 / 0.6 - 0.9 cm LVPW Diastolic Thickness 1.2 cm 0.6 - 1.0 / 0.6 - 0.9 cm LV Relative Wall Thickness 0.6 RV Internal Dim ED PLAX 2.5 cm LVOT Diameter 1.6 cm LA Systolic Diameter LX 4.0 cm 3.0 - 4.0 / 2.7 - 3.8 cm LV Diastolic Volume MOD BP 81.2 cm??? 67 - 155 / 56 - 104 cm??? LV Systolic Volume MOD BP 44.0 cm??? - / 19 - 49 cm??? LV Ejection Fraction MOD BP 45.8 % >= 55 % LV Cardiac Index MOD BP 2211.7 cm???/min???m??? LV Diastolic Volume MOD 4C 74.6 cm??? LV Systolic Volume MOD 4C 43.5 cm??? LV Ejection Fraction MOD 4C 41.7 % LV Cardiac Index MOD 4C 1851.7 cm???/min???m??? LV Diastolic Length 4C 7.2 cm LV Systolic Length 4C 6.6 cm LV Diastolic Volume MOD 2C 81.1 cm??? LV Systolic Volume MOD 2C 42.4 cm??? LV Ejection Fraction MOD 2C 47.7 % LV Cardiac Index MOD 2C 2302.9 cm???/min???m??? LV Diastolic Length 2C 7.9 cm LV Systolic Length 2C 6.9 cm LA Volume 49.8 cm??? 18 - 58 / 22 - 52 cm??? LA Volume Index 33.3 cm???/m??? 16 - 28 cm???/m??? DOPPLER MV Peak Velocity 105.7 cm/s MV Peak Gradient 4.5 mmHg MV Mean Velocity 61.2 cm/s MV Mean Gradient 1.9 mmHg MV Velocity Time Integral 19.8 cm MR Peak Velocity 599.7 cm/s MR Peak Gradient 143.9 mmHg TR Peak Velocity 241.7 cm/s TR Peak Gradient 23.4 mmHg FINDINGS Left Ventricle Left ventricular ejection fraction is estimated at 45-50%. Mild concentric left ventricular hypertrophy. Apical septal hypokinesis. Left ventricular cavity size normal. Right Ventricle Normal right ventricular size and function. Right ventricular systolic pressure within normal limits. Right Atrium Mild right atrial dilatation. Aneurysmal Interatrial septum Left Atrium Mildly increased left atrial diameter. Mildly increased left atrial volume. Mitral Valve Mitral valve thickened. No mitral stenosis. Moderate mitral regurgitation. Aortic Valve Trileaflet aortic valve. No aortic valve stenosis or regurgitation. Tricuspid Valve Structurally normal tricuspid valve. No tricuspid stenosis. Mild tricuspid regurgitation. Pulmonic Valve Structurally normal pulmonic valve. No pulmonic stenosis. Trace pulmonic regurgitation. Pericardium Minimal pericardial effusion (normal variant). Aorta Aortic annulus normal. CONCLUSIONS Moderate LV systolic dysfunction with an ejection fraction of 45% Apical hypokinesis Moderate mitral regurgitation Aneurysmal interatrial septum Previewed by: Dr. Wes Bashir MD (Electronically Signed) Final Date: 25 October 2024 11:28
[2024-10-25] MEDS: LORazepam 0.5 MG TAB PO PRN (11:31)
[2024-10-25 11:55] LABS: Basophils # (A) 0.09 X 10*3/uL (0.00-0.10); Basophils % (A) 1.5 %; Eosinophils # (A) 0.40 X 10*3/uL (0.04-0.35); Eosinophils % (A) 6.6 %; HCT 38.8 % (37.2-46.3); HGB 12.3 g/dL (12.0-15.0); Immature Grans, Automated 0.20 %; Lymphocytes # (A) 1.77 X 10*3/uL (0.90-5.00); Lymphocytes % (A) 29.3 %; MCH 29.9 pg (27.0-32.0); MCHC 31.7 g/dL (32.0-37.0); MCV 94.2 FL (80.0-97.0); Monocytes # (A) 0.58 X 10*3/uL (0.20-1.00); Monocytes % (A) 9.6 %; NRBC Per 100 WBC 0 X 10*3/uL (0.00-0.01); Neutrophils # (A) 3.20 X 10*3/uL (1.80-7.70); Neutrophils % (A) 52.8 %; Platelet Count 155 X 10*3/uL (140-440); RBC 4.12 X 10*6/uL (4.10-5.20); RDW 13.1 % (11.5-14.5); WBC 6.05 X 10*3/uL (4.50-10.00)
--- NOTE | 2024-10-25 12:17 | P.CRDCN ---
History of Present Illness History of present illness: HISTORY OF PRESENT ILLNESS: This is a 78-year-old female with a past medical history significant for syncope, atrial fibrillation, normal coronary arteries, and mild septal hypertrophy concerning for possible hypertrophic cardiomyopathy. Patient follows in the office with Dr. Tapia. We have been asked to see the patient in consultation for chest pain. Patient examined at the bedside. Patient states that she presented to the hospital with a chief complaint of chest pain. However patient is a very poor historian and is unable to give a good history of what happened. Per nursing, the patient was having episodes of chest pain overnight that seem to be exacerbated by anxiety. She was given Xanax with resolution of her chest pain. This morning she complains of a headache. She denies any chest pain or shortness of breath at the time of examination. Vital signs are stable. DIAGNOSTICS: - EKG reveals sinus mechanism with left bundle branch block. - Chest xray for acute process. - Laboratory data: Troponin negative x 3 - Echocardiogram obtained this admission revealed ejection fraction 45 to 50%, apical septal hypokinesis, aneurysmal intra-atrial septum, moderate MR - Cardiac catheterization history: May 2021 revealing normal coronary arteries REVIEW OF SYSTEMS: At the time of my exam: CONSTITUTIONAL: Denies fever or chills. HEENT: Denies blurred vision, vision changes, or eye pain. Denies hemoptysis CARDIOVASCULAR: Denies chest pain. Denies orthopnea. Denies PND. Denies palpitations RESPIRATORY: Denies shortness of breath. GASTROINTESTINAL: Denies abdominal pain. Denies nausea or vomiting. HEMATOLOGIC: Denies bleeding disorders. GENITOURINARY: Denies any blood in urine. SKIN: Denies pruitis. Denies rash. PHYSICAL EXAM: VITAL SIGNS: Reviewed. GENERAL: Well-developed in no acute distress. HEENT: Head is normocephalic. Pupils are equal, round. Sclerae anicteric. Mucous membranes of the mouth are moist. Neck supple. No JVD or thyromegaly LUNGS: Respirations even and unlabored. Lungs essentially clear to auscultation bilaterally. HEART: Regular rate and rhythm. S1 and S2 heard. ABDOMEN: Soft. Nondistended. Nontender. EXTREMITIES: Normal range of motion. No clubbing or cyanosis. Peripheral pulses intact. No lower extremity edema NEUROLOGIC: Awake and alert. ASSESSMENT: Headache Chest pain, troponin negative x 3 Normal coronary arteries, per cath 2021 New onset mild cardiomyopathy 45 to 50%, unspecified Mild septal hypertrophy concerning for possible hypertrophic cardiomyopathy Paroxysmal atrial fibrillation History of syncope PLAN: 2D echo obtained and reviewed Resume home cardiac medications Neurology consulted for possible CVA per admitting physician. Await recommendations Further recommendations pending patient course Nurse practitioner note has been reviewed by physician. Signing provider agrees with the documented findings, assessment, and plan of care documented by [employer] as a scribe. Past Medical History Past Medical History: Atrial Fibrillation, Cancer, Fibromyalgia, Osteoarthritis (OA), Rheumatoid Arthritis (RA), Syncope, Thyroid Disorder Additional Past Medical History / Comment(s): Cervical CA years ago; Osteoporosis, Raynaud's, one time seizure after gastric bypass-nothing since, see Dr Sumner H & P, lightheaded @times, falls, malabsorption History of Any Multi-Drug Resistant Organisms: MRSA Date of last positivie culture/infection: 2005 MDRO Source:: R index finger L baby finger Past Surgical History: Ablation, Appendectomy, Bariatric Surgery, Cholecystectomy, Hysterectomy, Joint Replacement, Orthopedic Surgery, Tonsillectomy Additional Past Surgical History / Comment(s): Gastric Bypass, & revision; Duodenal Switch; Tummy Tuck, numerous hand surgeries; finger joints replaced, 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 waking up Past Psychological History: Anxiety, PTSD Smoking Status: Never smoker Past Alcohol Use History: None Reported Past Drug Use History: None Reported - Past Family History Father Family Medical History: Cancer Medications and Allergies Home Medications Medication Instructions Recorded Confirmed Type Cyanocobalamin [Vitamin B-12 1,000 mcg SQ Q14D 12/30/16 10/24/24 History Injection] Escitalopram [Lexapro] 20 mg PO DAILY 12/30/16 10/24/24 History Levothyroxine Sodium [Synthroid] 25 mcg PO DAILY@0700 12/30/16 10/24/24 History Cholecalciferol [Vitamin D3 (25 125 mcg PO DAILY 06/07/21 10/24/24 History Mcg = 1000 Iu)] Vitamin A Acetate [Vitamin A] 10,000 units PO DAILY 06/07/21 10/24/24 History calcitrioL [Rocaltrol (GEQ)] 0.5 mcg PO BID 06/07/21 10/24/24 History Apixaban [Eliquis] 5 mg PO BID 30 Days #60 tab 06/08/21 10/24/24 Rx Bacillus Coagulans [Digestive 1 tab PO DAILY 10/24/24 10/24/24 History Advantage Probiotic Chew] Denosumab [Prolia] 60 mg SQ Q182D 10/24/24 10/24/24 History Ergocalciferol (Vitamin D2) 2,500 mcg PO DIRECTED 10/24/24 10/24/24 History [Drisdol (GEQ) 1,250 MCG (50,000 IU)] Folic Acid 1 mg PO DAILY 10/24/24 10/24/24 History Magnesium Glycinate 420 mg PO BID 10/24/24 10/24/24 History Mavacamten [Camzyos] 10 mg PO DAILY 10/24/24 10/24/24 History Super Digestive Enzyme 2 cap PO PC-TID 10/24/24 10/24/24 History estradioL [Estrace] 1 mg PO DAILY 10/24/24 10/24/24 History Allergies Allergy/AdvReac Type Severity Reaction Status Date / Time cephalexin [From Keflex] AdvReac Rash/Hives Verified 10/24/24 15:37 Iodinated Contrast Media AdvReac flushing Verified 10/24/24 15:37 iodine AdvReac Rash/Hives Verified 10/24/24 15:37 shellfish derived [Shellfish] AdvReac Rash/Hives Verified 10/24/24 15:37 Physical Exam Vitals: Vital Signs Temp Pulse Pulse Pulse Resp BP BP 10/25/24 07:13 98.2 F 83 10/25/24 01:50 98.0 F 71 16 134/72 10/24/24 21:30 18 10/24/24 19:10 98.2 F 83 16 148/77 10/24/24 17:59 98.4 F 79 18 141/77 BP Pulse Ox 10/25/24 07:13 151/72 98 10/25/24 01:50 97 10/24/24 21:30 10/24/24 19:10 97 10/24/24 17:59 99 Intake and Output 10/24/24 10/25/24 10/25/24 22:59 06:59 14:59 Intake Total 118 Balance 118 Intake: Oral 118 Other: Voiding Method Toilet # Voids 2 Weight 49.895 kg Results 10/25/24 06:06 10/24/24 12:58 Cardiac Enzymes 10/24/24 10/24/24 10/24/24 Range/Units 12:58 12:58 15:44 AST 25 (14-36) U/L Troponin I 0.013 0.016 (0.000-0.034) ng/mL 10/24/24 Range/Units 18:43 AST (14-36) U/L Troponin I 0.014 (0.000-0.034) ng/mL Coagulation 10/24/24 Range/Units 12:58 PT 11.6 (10.0-12.5) sec APTT 24.4 (22.0-30.0) sec CBC 10/24/24 10/25/24 Range/Units 12:58 06:06 WBC 5.87 6.05 (4.50-10.00) 10*3/uL RBC 4.01 L 4.12 (4.10-5.20) 10*6/uL Hgb 12.4 12.3 (12.0-15.0) g/dL Hct 37.1 L 38.8 (37.2-46.3) % Plt Count 157 155 (140-440) 10*3/uL Comprehensive Metabolic Panel 10/24/24 Range/Units 12:58 Sodium 142 (137-145) mmol/L Potassium 3.9 (3.5-5.1) mmol/L Chloride 111 H (98-107) mmol/L Carbon Dioxide 19 L (22-30) mmol/L BUN 8 (7-17) mg/dL Creatinine 0.58 (0.52-1.04) mg/dL Glucose 77 (74-99) mg/dL Calcium 8.6 (8.4-10.2) mg/dL AST 25 (14-36) U/L ALT 20 (4-34) U/L Alkaline Phosphatase 49 (38-126) U/L Total Protein 5.8 L (6.3-8.2) g/dL Albumin 3.7 (3.5-5.0) g/dL Current Medications Generic Name Dose Route Start Last Admin Trade Name Freq PRN Reason Stop Dose Admin Apixaban 5 mg 10/24/24 21:00 10/25/24 10:28 Apixaban 5 Mg Tab PO 5 mg BID [facility] Administration Protocol Aspirin 81 mg 10/26/24 09:00 Aspirin 81 Mg PO DAILY [facility] Atorvastatin Calcium 10 mg 10/25/24 12:00 Atorvastatin 10 Mg Tab PO DAILY [facility] Calcitriol 0.5 mcg 10/24/24 21:00 10/25/24 10:28 Calcitriol 0.25 Mcg Cap PO 0.5 mcg BID [facility] Administration Cholecalciferol 125 mcg 10/25/24 09:00 10/25/24 10:29 Cholecalciferol 125 Mcg (5000 Iu) Tablet PO 125 mcg DAILY [facility] Administration Cyanocobalamin 1,000 mcg 11/03/24 09:00 Cyanocobalamin 1,000 Mcg/Ml 1 Ml Vial SQ Q14D [facility] Ergocalciferol 2,500 mcg 10/27/24 09:00 Ergocalciferol 1,250 Mcg (50,000 Iu) Capsule PO TuSa@0900 [facility] Escitalopram Oxalate 20 mg 10/25/24 09:00 10/25/24 10:29 Escitalopram 20 Mg Tab PO 20 mg DAILY [facility] Administration Estradiol 1 mg 10/25/24 09:00 10/25/24 10:29 Estradiol 0.5 Mg Tab PO 1 mg DAILY [facility] Administration Folic Acid 1 mg 10/25/24 09:00 10/25/24 10:29 Folic Acid 1 Mg Tab PO 1 mg DAILY [facility] Administration Lactobacillus Acidophilus 1 each 10/25/24 09:00 10/25/24 10:30 Lactobacillus Acidophilus/Pect 1 Each Capsule PO 1 each DAILY [facility] Administration Levothyroxine Sodium 25 mcg 10/25/24 07:00 10/25/24 06:25 Levothyroxine 25 Mcg Tab PO 25 mcg DAILY@0700 [facility] Administration Lorazepam 0.5 mg 10/25/24 11:20 10/25/24 11:31 Lorazepam 0.5 Mg Tab PO 0.5 mg Q6HR PRN Administration Anxiety Magnesium Oxide 400 mg 10/24/24 21:00 10/25/24 10:30 Magnesium Oxide 400 Mg Tab PO 400 mg BID [facility] Administration Nitroglycerin 0.4 mg 10/24/24 14:10 Nitroglycerin Sl Tabs 0.4 Mg Tab SUBLINGUAL Q5M PRN Chest Pain Nitroglycerin 0.5 inch 10/24/24 18:00 10/25/24 06:26 Nitroglycerin Oint 1 Inch/Gm Packet TOPICAL 0.5 inch Q6HR [facility] Administration Patient's Own ( 10 mg 10/25/24 09:00 10/25/24 10:34 Mavacamten [Camzyos] PO Not Given 10 Mg Capsule) DAILY [facility] Patient's Own Prolia 60 each 10/24/24 17:30 10/24/24 21:15 60mg Syringe SQ Not Given Q182D [facility] Vitamin A 10,000 unit 10/25/24 09:00 10/25/24 10:30 Vitamin A 10,000 Unit (3000 Mcg) Capsule PO 10,000 unit DAILY [facility] Administration Intake and Output 10/24/24 10/25/24 10/25/24 22:59 06:59 14:59 Intake Total 118 Balance 118 Intake: Oral 118 Other: Voiding Method Toilet # Voids 2 Weight 49.895 kg 10/25/24 06:06 10/24/24 12:58
--- NOTE | 2024-10-25 12:45 | PN ---
PROGRESS NOTE DATE OF SERVICE: 10/25/2024 SUBJECTIVE: This is a 78-year-old woman was admitted with chest pain, also had significant abnormal movements and facial deviation apparently at this time. The family is concerned about a stroke. There is no history of any fever, rigors, or chills. Cardiology saw the patient. PAST MEDICAL HISTORY: Reviewed. REVIEW OF SYSTEMS: A 14-point review of systems negative except as mentioned earlier. CURRENT MEDICATIONS: Reviewed. PHYSICAL EXAMINATION: VITAL SIGNS: Pulse 83, blood pressure 150/74, and respirations 16. CHEST: Clear to auscultation. CARDIOVASCULAR: S1, S2. ABDOMEN: Soft. NERVOUS SYSTEM: Nonfocal. LABORATORY DATA: Reviewed. ASSESSMENT: 1. Chest pain, possible unstable angina. 2. Abnormal movements and facial droop. Rule out acute stroke, possible panic attack. 3. Left bundle branch block on EKG. 4. History of atrial fibrillation. 5. History of rheumatoid arthritis. 6. History of osteoporosis. 7. History of methicillin-resistant Staphylococcus aureus. 8. History of bariatric surgery. 9. Multiple complex medical issues. RECOMMENDATIONS AND DISCUSSION: I recommend to continue current management and continue symptomatic treatment. Otherwise Cardiology consultation. I would also recommend stroke workup, Neurology consultation. Guarded prognosis, because of multiple complex medical issues. Further recommendations to follow. MMODL / IJN: [id number] /
[2024-10-25 13:01] LABS: Anion Gap 14.00 mmol/L (4.00-12.00); BUN/Creat Ratio 12.17 Ratio (12.00-20.00); Blood Urea Nitrogen 7.3 mg/dL (9.0-27.0); Calcium 7.9 mg/dL (8.7-10.3); Carbon Dioxide 20.0 mmol/L (21.6-31.8); Chloride 110 mmol/L (96-109); Cholesterol 143.00 mg/dL (0.00-200.00); Glucose 76 mg/dL (70-110); HDL Cholesterol 42.90 mg/dL (40.00-60.00); LDL Cholesterol,Calculated 81.6 mg/dL (0.0-131.0); Potassium 3.9 mmol/L (3.5-5.5); Sodium 144 mmol/L (135-145); Triglycerides 92.50 mg/dL (0.00-149.00); VLDL Calculation 18.50 mg/dL (5.00-40.00)
--- NOTE | 2024-10-25 13:04 | US ---
EXAMINATION TYPE: US carotid duplex BILAT DATE OF EXAM: 10/25/2024 COMPARISON: 07/27/2021 CLINICAL INDICATION: Female, 78 years old with history of stroke; Additional History: .... TECHNIQUE: Grayscale, color Doppler and spectral Doppler evaluation of the bilateral carotid systems and vertebral arteries. Indirect Doppler criteria was utilized. FINDINGS: EXAM MEASUREMENTS: RIGHT: Peak Systolic Velocity (PSV) cm/sec ----- Right CCA: 68.6 ----- Right ICA: 136.6 ----- Right ECA: 75.6 ICA/CCA ratio: 2.0 RIGHT: End Diastole cm/sec ----- Right CCA: 16.8 ----- Right ICA: 39.7 ----- Right ECA: 12.7 LEFT: Peak Systolic Velocity (PSV) cm/sec ----- Left CCA: 70.3 ----- Left ICA: 76.4 ----- Left ECA: 58.7 ICA/CCA ratio: 1.1 LEFT: End Diastole cm/sec ----- Left CCA: 20.6 ----- Left ICA: 21.5 ----- Left ECA: 9.9 VERTEBRALS (direction of flow): Right Vertebral: Antegrade Left Vertebral: Antegrade Rhythm: Normal CONTROL SYSTEM MANAGER NOTES: Very limited scan due to severe vessel tortuosity, pt unable to turn head and lay completely flat, No elevated velocities, plaque or significant stenosis seen bilaterally Color Doppler imaging shows patency with blood flow throughout the carotid artery. Spectral waveforms are within normal limits. IMPRESSION: No evidence of hemodynamically significant stenosis. Criteria for Assigning % of Stenosis / Diameter reduction (Estimation based on the indirect measurements of the internal carotid artery velocities (ICA PSV). 1. Normal (no stenosis)=ICA PSV < 180 cm/s: ratio < 2.0: ICA EDV<40 cm/s. 2. Less than 50% stenosis=ICA PSV < 180 cm/s: ratio < 2.0: ICA EDV<40 cm/s. 3. 50 to 69% stenosis=ICA PSV of 180 to 230 cm/s: ration 2.0 ? 4.0: ICA EDV 40-100 cm/s. PSV 125-180 cm/sec and ICA/CCA PSV Ratio ? 2.0 is also consistent with 50-69% stenosis 4. Greater than 70% stenosis to near occlusion= ICA PSV > 230 cm/s: ratio > 4.0: ICA EDV > 100 cm/s. 5. Near occlusion= ICA PSV velocities may be low or undetectable: variable ratio and ICA EDV. 6. Total occlusion=unable to detect flow. [facility], , 10/25/2024 1:02 PM
--- NOTE | 2024-10-25 13:20 | CT ---
EXAMINATION TYPE: CT brain wo con DATE OF EXAM: 10/25/2024 COMPARISON: 06/07/2021 CLINICAL INDICATION: Female, 78 years old with history of ams; PHH, ams CT DLP: 1081.6 mGycm Automated exposure control for dose reduction was used. Findings: The ventricles, basal cisterns and sulci over the convexities are within normal limits and there is n o mass effect or shift of midline structures. There is no acute intra or extra-axial hemorrhage. The posterior fossa including the brainstem, fourth ventricle and cerebellar pontine angles appear no rmal. Intraorbital contents appear normal and symmetric. Visualized paranasal sinuses and mastoid air cells are well aerated. The calvarium is intact. IMPRESSION: There is no acute bleed or mass effect. No interval change. [facility], , 10/25/2024 1:17 PM
[2024-10-25 14:15] VITALS: BMI 18.8
[2024-10-25] MEDS: ATORVASTATIN 10 MG TAB PO SCH (15:35)
--- NOTE | 2024-10-25 16:32 | P.CNNES ---
History of Present Illness Consult date: 10/25/24 Requesting physician: Kevin Vera Reason for Consult: possible cva History of Present Illness: This is a 78-year-old woman who presents emergency department because of chest pain/pressure. Some of the history is obtained from the patient's family members who are at bedside. The patient sister and the son are at bedside. This seems yesterday she was having some chest pain. Also the family noticed that she is having weird facial expression yesterday and she stuttering. Patient does not have rhythmic jerking of extremity. Patient has been dealing with a lot of stressors recently dealing with probably . According to sister patient has a history of PTSD and recently she has been severely stressed out dealing with . Also recently she had history of pneumonia about 3 weeks ago and was in on antibiotic for 10 days. She has a history of hypothyroidism and she is on Synthroid. She has history of cardiac issues history of bypass and she follows up with Dr. Tapia as an outpatient. Patient denies of any focal deficit. Denies of any headache. She does have 1 history of seizure and that was about 25 to 30 years ago in which she had generalized tonic-clonic seizure that was provoked with light. Patient was not started on any new medication or was not placed on any antipsychotic. Some of the workup during this hospital visit consisted of: Ammonia level is 9. AST ALT, sodium, BUN/creatinine, calcium, serum glucose are within normal limits. Magnesium is within normal limit Review of Systems As per HPI. Past Medical History Past Medical History: Atrial Fibrillation, Cancer, Fibromyalgia, Osteoarthritis (OA), Rheumatoid Arthritis (RA), Syncope, Thyroid Disorder Additional Past Medical History / Comment(s): Cervical CA years ago; Osteoporosis, Raynaud's, one time seizure after gastric bypass-nothing since, see Dr Sumner H & P, lightheaded @times, falls, malabsorption History of Any Multi-Drug Resistant Organisms: MRSA Date of last positivie culture/infection: 2005 MDRO Source:: R index finger L baby finger Past Surgical History: Ablation, Appendectomy, Bariatric Surgery, Cholecyste ctomy, Hysterectomy, Joint Replacement, Orthopedic Surgery, Tonsillectomy Additional Past Surgical History / Comment(s): Gastric Bypass, & revision; Duodenal Switch; Tummy Tuck, numerous hand surgeries; finger joints replaced, 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 waking up Past Psychological History: Anxiety, PTSD Smoking Status: Never smoker Past Alcohol Use History: None Reported Past Drug Use History: None Reported - Past Family History Father Family Medical History: Cancer Medications and Allergies Home Medications Medication Instructions Recorded Confirmed Type Cyanocobalamin [Vitamin B-12 1,000 mcg SQ Q14D 12/30/16 10/24/24 History Injection] Escitalopram [Lexapro] 20 mg PO DAILY 12/30/16 10/24/24 History Levothyroxine Sodium [Synthroid] 25 mcg PO DAILY@0700 12/30/16 10/24/24 History Cholecalciferol [Vitamin D3 (25 125 mcg PO DAILY 06/07/21 10/24/24 History Mcg = 1000 Iu)] Vitamin A Acetate [Vitamin A] 10,000 units PO DAILY 06/07/21 10/24/24 History calcitrioL [Rocaltrol (GEQ)] 0.5 mcg PO BID 06/07/21 10/24/24 History Apixaban [Eliquis] 5 mg PO BID 30 Days #60 tab 06/08/21 10/24/24 Rx Bacillus Coagulans [Digestive 1 tab PO DAILY 10/24/24 10/24/24 History Advantage Probiotic Chew] Denosumab [Prolia] 60 mg SQ Q182D 10/24/24 10/24/24 History Ergocalciferol (Vitamin D2) 2,500 mcg PO DIRECTED 10/24/24 10/24/24 History [Drisdol (GEQ) 1,250 MCG (50,000 IU)] Folic Acid 1 mg PO DAILY 10/24/24 10/24/24 History Magnesium Glycinate 420 mg PO BID 10/24/24 10/24/24 History Mavacamten [Camzyos] 10 mg PO DAILY 10/24/24 10/24/24 History Super Digestive Enzyme 2 cap PO PC-TID 10/24/24 10/24/24 History estradioL [Estrace] 1 mg PO DAILY 10/24/24 10/24/24 History Allergies Allergy/AdvReac Type Severity Reaction Status Date / Time cephalexin [From Keflex] AdvReac Rash/Hives Verified 10/24/24 15:37 Iodinated Contrast Media AdvReac flushing Verified 10/24/24 15:37 iodine AdvReac Rash/Hives Verified 10/24/24 15:37 shellfish derived [Shellfish] AdvReac Rash/Hives Verified 10/24/24 15:37 Physical Examination - Vital Signs Vital Signs: Vital Signs Temp Pulse Pulse Pulse Resp BP BP 10/25/24 14:30 98.0 F 82 16 131/73 10/25/24 07:13 98.2 F 83 10/25/24 01:50 98.0 F 71 16 134/72 10/24/24 21:30 18 10/24/24 19:10 98.2 F 83 16 148/77 10/24/24 17:59 98.4 F 79 18 141/77 BP Pulse Ox 10/25/24 14:30 98 10/25/24 07:13 151/72 98 10/25/24 01:50 97 10/24/24 21:30 10/24/24 19:10 97 10/24/24 17:59 99 Intake and Output 10/25/24 10/25/24 10/25/24 06:59 14:59 22:59 Intake Total 238 240 Balance 238 240 Intake: Oral 238 240 Other: # Voids 2 1 Weight 49.895 kg GENERAL: The patient is lying in bed and is not in acute distress. NEUROLOGICAL: Higher mental function: The patient is awake, alert, oriented to self, place and time. Patient is following commands. No aphasia and no neglect. Patient would have transient episode of stuttering but then at times with distraction her starting resolves. Cranial nerves: The pupils are round, equal and reactive to light and accommodation. Visual pierson are full to confrontation throughout. Extraocular movement is intact no nystagmus is noted. Facial sensation is normal to touch throughout. The facial strength is normal throughout. Normal to have abnormal facial movement but again with distraction that would resolve. Although she will have episode that she will open the left eye but would not open the right eye but then would open both eyes spontaneously. Hearing is moderately decreased bilaterally to hand rub. Tongue is midline and moved [id number] without any difficulty. No dysarthria is noted. Shoulder shrug is normal bilaterally. Motor: The strength is lifting all extremities above gravity symmetrically. Normal tone and bulk. Cerebellum: Normal finger to nose bilaterally. Sensation: Sensation is normal to touch throughout. Reflexes (right/left): 2+ throughout. Plantars are mute bilaterally. Results - Laboratory Findings CBC and BMP: 10/25/24 06:06 10/25/24 06:06 Abnormal Lab Findings: Abnormal Labs 10/24/24 10/24/24 10/25/24 12:58 12:58 06:06 RBC 4.01 L Hct 37.1 L MCHC 31.7 L Eosinophils # 0.40 H Chloride 111 H Carbon Dioxide 19 L Anion Gap BUN Calcium Total Protein 5.8 L 10/25/24 06:06 RBC Hct MCHC Eosinophils # Chloride 110 H Carbon Dioxide 20.0 L Anion Gap 14.00 H BUN 7.3 L Calcium 7.9 L Total Protein Assessment and Plan Assessment: This is a 78-year-old woman who presents to the emergency department because of chest pain/pressure. She is also since yesterday been having abnormal facial expression and stuttering. Per family members she is under a lot of stress dealing with family and has underlying history of PTSD. Abnormal facial movement with stuttering that resolves with distraction seems more functional due to her recent stressors. Acute chest pain History of hypothyroidism History of seizure about 25 to 30 years ago and seems that she had 1 episode was generalized tonic-clonic Recent history of pneumonia 3 weeks ago she was at other biotic for 2 days Cardiomyopathy Paroxysmal atrial fibrillation History of PTSD Plan: I ordered routine EEG, CT of the head, vitamin B12, TSH. If the workup is negative recommend the patient to follow-up with a psychiatrist as an outpatient. Cardiology is on board Will defer the rest of the to the primary other specialist Discussed with patient, her family members were at bedside which includes her son and sister as well as updated her nurse. Thank you for the consultation. Time with Patient: Greater than 30
[2024-10-25 21:22] LABS: Bacteria,Urine Rare /hpf; Bilirubin,Urine Negative (Negative); Blood,Urine Large (Negative); Color,Urine Colorless; Glucose,Urine (UA) Negative (Negative); Ketones,Urine 2+ (Negative); Leukocyte Esterase,Urine Moderate (Negative); Mucus,Urine Rare /hpf; Nitrite,Urine Negative (Negative); PH, Urine 6.0 (5.0-8.0); Protein,Urine Negative (Negative); RBC,Urine 32 /hpf (0-5); Specific Gravity,Urine 1.007 (1.001-1.035); Squamous Epithelial Cell,Urine 1 /hpf (0-4); Urobilinogen,Urine <2.0 mg/dL (<2.0); WBC,Urine 9 /hpf (0-5)
[2024-10-25 21:42] LABS: Barbiturate Screen,Urine Not Detected (NotDetected); Benzodiazepines Screen,Urine Detected (NotDetected); Opiate Screen,Urine Detected (NotDetected); Oxycodone Screen, Urine Not Detected (NotDetected); Phencyclidine Screen,Urine Not Detected (NotDetected); Tricyclic Antidepressant,Urine Not Detected (NotDetected); Urn Cannabinoid Scrn Not Detected (NotDetected)
--- NOTE | 2024-10-26 03:18 | EEG ---
ELECTROENCEPHALOGRAM REPORT CLINICAL HISTORY: This is a 78-year-old woman with abnormal recurrent facial movement. The video EEG is obtained to evaluate for seizure epileptiform activity. RELEVANT MEDICATION: Ativan p.r.n. The EEG at times is a routine 21-channel EEG with video using the 10/20 electrode placement system. DESCRIPTION: Wakefulness is only obtained. During awake state, the posterior-dominant rhythm consists of [id number] voltage, 9-10 hertz activity that is well modulated and well sustained. There is no physiological stage 2 sleep architecture. There is no focal slowing. There is [id number] bilateral frontal myogenic artifact. There are interictal and ictal none. ACTIVATION PROCEDURE: Photic stimulation did not evoke posterior driving response. There is no abnormality during the photic stimulation. Hyperventilation is not performed. CLINICAL INTERPRETATION: This is a normal routine EEG during awake state. There is no focal slowing, epileptiform discharge, or seizure on the EEG. A normal routine EEG does not rule out underlying epilepsy. Clinical correlation is recommended. MMKELBY / IJN: [id number] /
[2024-10-26] MEDS: ASPIRIN 81 MG PO SCH (09:30)
[2024-10-26 09:37] LABS: Basophils # (A) 0.08 X 10*3/uL (0.00-0.10); Basophils % (A) 1.4 %; Eosinophils # (A) 0.40 X 10*3/uL (0.04-0.35); Eosinophils % (A) 7.1 %; HCT 39.9 % (37.2-46.3); HGB 12.8 g/dL (12.0-15.0); Immature Grans, Automated 0.20 %; Lymphocytes # (A) 1.48 X 10*3/uL (0.90-5.00); Lymphocytes % (A) 26.4 %; MCH 30.1 pg (27.0-32.0); MCHC 32.1 g/dL (32.0-37.0); MCV 93.9 FL (80.0-97.0); Monocytes # (A) 0.61 X 10*3/uL (0.20-1.00); Monocytes % (A) 10.9 %; NRBC Per 100 WBC 0 X 10*3/uL (0.00-0.01); Neutrophils # (A) 3.02 X 10*3/uL (1.80-7.70); Neutrophils % (A) 54.0 %; Platelet Count 162 X 10*3/uL (140-440); RBC 4.25 X 10*6/uL (4.10-5.20); RDW 13.1 % (11.5-14.5); WBC 5.60 X 10*3/uL (4.50-10.00)
[2024-10-26] MEDS: LEVOFLOXACIN 500MG-D5W PMX 500 MG in DEXTROSE/WATER 1 100ML.BAG IVPB SCH (09:37)
[2024-10-26 09:42] LABS: Anion Gap 12.00 mmol/L (4.00-12.00); BUN/Creat Ratio 14.60 Ratio (12.00-20.00); Blood Urea Nitrogen 7.3 mg/dL (9.0-27.0); Calcium 8.2 mg/dL (8.7-10.3); Carbon Dioxide 22.0 mmol/L (21.6-31.8); Chloride 107 mmol/L (96-109); Cholesterol 143.00 mg/dL (0.00-200.00); Glucose 83 mg/dL (70-110); HDL Cholesterol 44.70 mg/dL (40.00-60.00); LDL Cholesterol,Calculated 83.5 mg/dL (0.0-131.0); Potassium 3.8 mmol/L (3.5-5.5); Sodium 141 mmol/L (135-145); Triglycerides 73.90 mg/dL (0.00-149.00); VLDL Calculation 14.78 mg/dL (5.00-40.00)
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
--- NOTE | 2024-10-26 14:28 | P.PN ---
Subjective Progress Note Date: 10/26/24 I am following up with the patient and she is accompanied with her family members which includes her son, sister and [id number]. Per family members she is doing better today compared to yesterday. She is having improvement in the stuttering and abnormal facial movement. Patient does feel better overall. The son reiterates that she is under a lot of stress. Objective - Vital Signs Vital signs: Vital Signs Temp 98.1 F 10/26/24 07:11 Pulse 79 10/26/24 07:11 Resp 18 10/26/24 07:11 BP 112/64 10/26/24 07:11 Pulse Ox 98 10/26/24 07:11 FiO2 Intake & Output 10/25/24 10/26/24 10/26/24 18:59 06:59 18:59 Intake Total 478 118 60 Balance 478 118 60 Weight 49.895 kg Intake: Oral 478 118 60 Other: Voiding Method Toilet # Voids 1 3 1 - Exam General: Laying in bed and is not in acute distress. Neuro: The patient is awake alert oriented to self place and time. Is following simple commands. No aphasia. Pupils are round about 4 mm and reactive to light. Patient has exophthalmos bilaterally which is chronic per the sister. Full to conversation. Extraocular was intact no nystagmus. No facial weakness. No dysarthria. No further stuttering today on my examination. Motor: Strength is left in all EXTR above gravity and seems symmetrical. Some of the workup during this hospital visit consisted of: Ammonia level is 9. AST ALT, sodium, BUN/creatinine, calcium, serum glucose are within normal limits. Magnesium is within normal limit And B12 is 869 Routine EEG is normal. CT head: No acute bleed or mass effect. No interval change. - Labs CBC & Chem 7: 10/26/24 05:27 10/26/24 05:27 Labs: Abnormal Lab Results - Last 24 Hours (Table) 10/25/24 10/25/24 10/26/24 Range/Units 21:13 21:13 05:27 Eosinophils # 0.40 H (0.04-0.35) X 10*3/uL BUN (9.0-27.0) mg/dL Creatinine (0.6-1.5) mg/dL Calcium (8.7-10.3) mg/dL Urine Ketones 2+ H (Negative) Urine Blood Large H (Negative) Ur Leukocyte Esterase Moderate H (Negative) Urine RBC 32 H (0-5) /hpf Urine WBC 9 H (0-5) /hpf Urine Bacteria Rare H (None) /hpf Urine Mucus Rare H (None) /hpf Urine Opiates Screen Detected H (NotDetected) U Benzodiazepines Scrn Detected H (NotDetected) 10/26/24 Range/Units 05:27 Eosinophils # (0.04-0.35) X 10*3/uL BUN 7.3 L (9.0-27.0) mg/dL Creatinine 0.5 L (0.6-1.5) mg/dL Calcium 8.2 L (8.7-10.3) mg/dL Urine Ketones (Negative) Urine Blood (Negative) Ur Leukocyte Esterase (Negative) Urine RBC (0-5) /hpf Urine WBC (0-5) /hpf Urine Bacteria (None) /hpf Urine Mucus (None) /hpf Urine Opiates Screen (NotDetected) U Benzodiazepines Scrn (NotDetected) Assessment and Plan Assessment: This is a 78-year-old woman who presents to the emergency department because of chest pain/pressure. She is also since yesterday been having abnormal facial expression and stuttering. Per family members she is under a lot of stress dealing with family and has underlying history of PTSD. Abnormal facial movement with stuttering that resolves with distraction seems more functional due to her recent stressors. Routine EEG is normal and the CT of the head is unremarkable for any acute process. Today her stuttering and abnormal facial movement has drastically improved. Acute chest pain History of hypothyroidism History of seizure about 25 to 30 years ago and seems that she had 1 episode was generalized tonic-clonic Recent history of pneumonia 3 weeks ago she was at other biotic for 2 days Cardiomyopathy Paroxysmal atrial fibrillation History of PTSD Plan: Psychiatry is consulted. Recommend the patient to follow-up with a therapist as an outpatient because of her stressors. Cardiology is on board Will defer the rest of the to the primary other specialist Upon discharge recommend the patient to follow-up with outpatient neurologist within 2 to 3 weeks patient continues to have stuttering and abnormal facial movement. ADDENDUM: Psychiatry evaluated the patient and the they feel the patient has thank disorder as well as depressive disorder unspecified. From neurological perspective there is no further neurological workup. Will sign off. Please reconsult if needed Time with Patient: Less than 30
--- NOTE | 2024-10-26 14:54 | PN ---
PROGRESS NOTE DATE OF SERVICE: 10/26/2024 SUBJECTIVE: This is a 78-year-old woman who was admitted with chest pain, also had abnormal movements, mostly functional according to Neurology. Complete neurovascular workup is underway. No chest pain. No palpitation. No focal weakness. OBJECTIVE: VITAL SIGNS: On exam; pulse 79, blood pressure 112/64, and respirations 18. CHEST: Clear to auscultation. CARDIOVASCULAR: S1 and S2 ABDOMEN: Soft. NERVOUS SYSTEM: Nonfocal. LABORATORY DATA: Reviewed. ASSESSMENT: 1. Chest pain, possible unstable angina. 2. Abnormal movement of the facial droop. Rule out acute stroke or possibly panic attacks or functional disorder. 3. Rule out urinary tract infection. 4. Left bundle-branch block on EKG. 5. History of atrial fibrillation. 6. History of rheumatoid arthritis. 7. History of osteoporosis. 8. History of methicillin-resistant Staphylococcus aureus. 9. History of bariatric surgery. 10.Multiple complex medical issues. RECOMMENDATIONS: I recommend to continue current management. Otherwise we will await the cultures. Continue to monitor. Repeat labs. Guarded prognosis. Further recommendations to follow. MMODL / IJN: [id number] /
--- NOTE | 2024-10-26 15:13 | P.PN ---
Subjective Progress Note Date: 10/26/24 HISTORY OF PRESENT ILLNESS: This is a 78-year-old female with a past medical history significant for sy ncope, atrial fibrillation, normal coronary arteries, and mild septal hypertrophy concerning for possible hypertrophic cardiomyopathy. Patient follows in the office with Dr. Tapia. We have been asked to see the patient in consultation for chest pain. Patient examined at the bedside. Patient states that she presented to the hospital with a chief complaint of chest pain. However patient is a very poor historian and is unable to give a good history of what happened. Per nursing, the patient was having episodes of chest pain overnight that seem to be exacerbated by anxiety. She was given Xanax with resolution of her chest pain. This morning she complains of a headache. She denies any chest pain or shortness of breath at the time of examination. Vital signs are stable. DIAGNOSTICS: - EKG reveals sinus mechanism with left bundle branch block. - Chest xray for acute process. - Laboratory data: Troponin negative x 3 - Echocardiogram obtained this admission revealed ejection fraction 45 to 50%, apical septal hypokinesis, aneurysmal intra-atrial septum, moderate MR - Cardiac catheterization history: May 2021 revealing normal coronary arteries 10/26/24 Patient has been conversing more appropriately today. She denies any chest pain or pressure or shortness of breath. She was seen by psych and diagnosed with panic disorder. PHYSICAL EXAM: VITAL SIGNS: Reviewed. GENERAL: Well-developed in no acute distress. HEENT: Head is normocephalic. Pupils are equal, round. Sclerae anicteric. Mucous membranes of the mouth are moist. Neck supple. No JVD or thyromegaly LUNGS: Respirations even and unlabored. Lungs essentially clear to auscultation bilaterally. HEART: Regular rate and rhythm. S1 and S2 heard. ABDOMEN: Soft. Nondistended. Nontender. EXTREMITIES: Normal range of motion. No clubbing or cyanosis. Peripheral pulses intact. No lower extremity edema NEUROLOGIC: Awake and alert. ASSESSMENT: Headache Chest pain, troponin negative x 3 Normal coronary arteries, per cath 2021 New onset mild cardiomyopathy 45 to 50%, unspecified Hypertrophic cardiomyopathy, on Camzyos Paroxysmal atrial fibrillation History of syncope PLAN: 2D echo obtained and reviewed does show a decrease in EF, will decrease Camzyos dose to 5mg daily. Will recheck ECHO 4 weeks outpatient. OK for buspar and seroquel with Camzyos. Cardiology to sign off. Follow up in office in 1-2 weeks. Please call with any questions or concerns. Nurse practitioner note has been reviewed by Dr. Tapia. Signing provider agrees with the documented findings, assessment, and plan of care documented by PATTERNMAKER SAMPLE as a scribe. Objective - Vital Signs Vital signs: Vital Signs Temp 98 F 10/26/24 00:10 Pulse 83 10/26/24 00:10 Resp 18 10/26/24 00:10 BP 109/70 10/26/24 00:10 Pulse Ox 96 10/26/24 00:10 FiO2 Intake & Output 10/25/24 10/26/24 10/26/24 18:59 06:59 18:59 Intake Total 478 118 Balance 478 118 Weight 49.895 kg Intake: Oral 478 118 Other: Voiding Method Toilet # Voids 1 3 - Labs CBC & Chem 7: 10/26/24 05:27 10/26/24 05:27 Labs: Abnormal Lab Results - Last 24 Hours (Table) 10/25/24 10/25/24 10/25/24 Range/Units 06:06 06:06 21:13 MCHC 31.7 L (32.0-37.0) g/dL Eosinophils # 0.40 H (0.04-0.35) X 10*3/uL Chloride 110 H (96-109) mmol/L Carbon Dioxide 20.0 L (21.6-31.8) mmol/L Anion Gap 14.00 H (4.00-12.00) mmol/L BUN 7.3 L (9.0-27.0) mg/dL Calcium 7.9 L (8.7-10.3) mg/dL Urine Ketones 2+ H (Negative) Urine Blood Large H (Negative) Ur Leukocyte Esterase Moderate H (Negative) Urine RBC 32 H (0-5) /hpf Urine WBC 9 H (0-5) /hpf Urine Bacteria Rare H (None) /hpf Urine Mucus Rare H (None) /hpf Urine Opiates Screen (NotDetected) U Benzodiazepines Scrn (NotDetected) 10/25/24 Range/Units 21:13 MCHC (32.0-37.0) g/dL Eosinophils # (0.04-0.35) X 10*3/uL Chloride (96-109) mmol/L Carbon Dioxide (21.6-31.8) mmol/L Anion Gap (4.00-12.00) mmol/L BUN (9.0-27.0) mg/dL Calcium (8.7-10.3) mg/dL Urine Ketones (Negative) Urine Blood (Negative) Ur Leukocyte Esterase (Negative) Urine RBC (0-5) /hpf Urine WBC (0-5) /hpf Urine Bacteria (None) /hpf Urine Mucus (None) /hpf Urine Opiates Screen Detected H (NotDetected) U Benzodiazepines Scrn Detected H (NotDetected)
[2024-10-26] MEDS: QUEtiapine 25 MG TAB PO SCH (20:17)
[2024-10-27] MEDS: ERGOCALCIFEROL 1,250 MCG (50,000 IU) CAPSULE PO SCH (09:13)
[2024-10-27 09:25] LABS: Basophils # (A) 0.08 X 10*3/uL (0.00-0.10); Basophils % (A) 1.2 %; Eosinophils # (A) 0.47 X 10*3/uL (0.04-0.35); Eosinophils % (A) 7.3 %; HCT 41.8 % (37.2-46.3); HGB 13.2 g/dL (12.0-15.0); Immature Grans, Automated 0.30 %; Lymphocytes # (A) 1.69 X 10*3/uL (0.90-5.00); Lymphocytes % (A) 26.1 %; MCH 30.1 pg (27.0-32.0); MCHC 31.6 g/dL (32.0-37.0); MCV 95.2 FL (80.0-97.0); Monocytes # (A) 0.69 X 10*3/uL (0.20-1.00); Monocytes % (A) 10.7 %; NRBC Per 100 WBC 0 X 10*3/uL (0.00-0.01); Neutrophils # (A) 3.52 X 10*3/uL (1.80-7.70); Neutrophils % (A) 54.4 %; Platelet Count 173 X 10*3/uL (140-440); RBC 4.39 X 10*6/uL (4.10-5.20); RDW 13.0 % (11.5-14.5); WBC 6.47 X 10*3/uL (4.50-10.00)
[2024-10-27 10:16] VITALS: RESP 16
[2024-10-27 10:23] LABS: Anion Gap 8.80 mmol/L (4.00-12.00); BUN/Creat Ratio 16.17 Ratio (12.00-20.00); Blood Urea Nitrogen 9.7 mg/dL (9.0-27.0); Calcium 8.5 mg/dL (8.7-10.3); Carbon Dioxide 26.2 mmol/L (21.6-31.8); Chloride 107 mmol/L (96-109); Glucose 99 mg/dL (70-110); Potassium 3.9 mmol/L (3.5-5.5); Sodium 142 mmol/L (135-145)
[2024-10-27] MEDS: [UNRECOGNIZED DRUG - OTHER] PO SCH (12:27)
[2024-10-27 16:16] VITALS: BP 107/67; TEMP 98.4
[2024-10-27 16:18] VITALS: PULSE 109
--- NOTE | 2024-10-31 19:18 | P.DS ---
Providers Date of admission: 10/24/24 14:10 Attending physician: Bartolome Beard MD Consults: 10/25/24 11:21 Consult Physician Routine Consulting Provider: Roney Dixon Consult Reason/Comments: possible stroke Do you want consulting provider notified?: Yes 10/26/24 09:24 Consult Physician Urgent Consulting Provider: Vilma Lazaro Consult Reason/Comments: ams, acute confusion, bizarre behavior Do you want consulting provider notified?: Yes Primary care physician: Nayla Hidalgo Hospital Course: Final Diagnosis Amnesia per family Abnormal facial movements and stuttering appears functional Chest pain, troponin negative x 3 Left bundle branch block on EKG Normal coronary arteries, per cath 2021 New onset mild cardiomyopathy 45 to 50%, unspecified Mild septal hypertrophy concerning for possible hypertrophic cardiomyopathy Paroxysmal atrial fibrillation History of syncope History of hypothyroidism Hx of seizure x 1 25-30 years Recent history of pneumonia Hx of PTSD Discharge Disposition Patient stable for discharge home. Patient to follow up with psychiatry and counseling services on discharge and information was provided. F/U with Dr Tapia in 4 weeks to repeat echocardiogram. Follow up with neurology. Hospital Course This is a 78-year-old female with a past medical history significant for syncope, fibromyalgia, rheumatoid arthritis, DJD, atrial fibrillation, normal coronary arteries, and mild septal hypertrophy concerning for possible hypertrophic cardiomyopathy. Patient comes in to the hospital with complaints of abnormal facial movements and confusion. Patient was admitted for neurological evaluation. EKG reveals sinus mechanism with left bundle branch block. Chest xray for acute process. Troponin negative x 3. Patient to undergo full stroke work up. Echocardiogram reveals moderate LV systolic dysfunction with an EF 45%, apical hypokinesis, moderate MR, aneurysmal interatrial septum. Carotid doppler reveals no evidence of hemodynamically significant stenosis. Brain CT reveals no acute bleed or mass effect. EEG reveals no focal slowing, epileptiform discharge or seizure on EEG. Per nursing, the patient was having episodes of chest pain overnight that seem to be exacerbated by anxiety. She also reports having intermittent episodes of chest pain/pressure prior to coming to the hospital. Family relays that patient is under alot of stress currently. She was given Xanax with resolution of her chest pain. She denies any chest pain or shortness of breath at the time of examination. Vital signs are stable. Facial movements and stuttering improved and mentation has improved. States her memory has improved. Psychiatry has also evaluated the patient and felt symptoms were because of stressors. Stroke was ruled out. No further cardiac work up while inpatient. Patient has been started on buspar twice daily, serqoeul at hS. Additionally she has been on mavacamten for the cardiomyopathy and cardiology recommending to decrease the dose and f/u with echocardiogram in 4 weeks because of the new decreased EF. Patient discharged home. Please see medication reconciliation for a list of current medications. Thank you for allowing us to participate in the care of this patient. The impression and plan of care has been dictated by Amberly Mitchell, Nurse Practitioner as directed. Dr. Tiburcio MD I have performed a history and physical examination and medical decision making of this patient, discussed the same with the dictator, and agree with the dictators assessment and plan as written, documented as a scribe. Based on total visit time, I have performed more than 50% of this visit. Plan - Discharge Summary Discharge Rx Participant: No New Discharge Prescriptions: New Aspirin 81 mg PO DAILY #30 tab busPIRone HCl [Buspar] 7.5 mg PO 0900,1400 #60 tab Atorvastatin [Lipitor] 10 mg PO DAILY #30 tab Mavacamten [Camzyos] 5 mg PO DAILY #30 cap QUEtiapine [SEROquel] 25 mg PO HS #15 tab Continue Cyanocobalamin [Vitamin B-12 Injection] 1,000 mcg SQ Q14D Levothyroxine Sodium [Synthroid] 25 mcg PO DAILY@0700 Escitalopram [Lexapro] 20 mg PO DAILY calcitrioL [Rocaltrol (GEQ)] 0.5 mcg PO BID Magnesium Glycinate 420 mg PO BID Denosumab [Prolia] 60 mg SQ Q182D Folic Acid 1 mg PO DAILY Ergocalciferol (Vitamin D2) [Drisdol (GEQ) 1,250 MCG (50,000 IU)] 2,500 mcg PO DIRECTED Cholecalciferol [Vitamin D3 (25 Mcg = 1000 Iu)] 125 mcg PO DAILY Vitamin A Acetate [Vitamin A] 10,000 units PO DAILY Apixaban [Eliquis] 5 mg PO BID 30 Days #60 tab Bacillus Coagulans [Digestive Advantage Probiotic Chew] 1 tab PO DAILY estradioL [Estrace] 1 mg PO DAILY Super Digestive Enzyme 2 cap PO PC-TID Discontinued Mavacamten [Camzyos] 10 mg PO DAILY Discharge Medication List Cyanocobalamin [Vitamin B-12 Injection] 1,000 mcg SQ Q14D 12/30/16 [History] Escitalopram [Lexapro] 20 mg PO DAILY 12/30/16 [History] Levothyroxine Sodium [Synthroid] 25 mcg PO DAILY@0700 12/30/16 [History] Cholecalciferol [Vitamin D3 (25 Mcg = 1000 Iu)] 125 mcg PO DAILY 06/07/21 [History] Vitamin A Acetate [Vitamin A] 10,000 units PO DAILY 06/07/21 [History] calcitrioL [Rocaltrol (GEQ)] 0.5 mcg PO BID 06/07/21 [History] Apixaban [Eliquis] 5 mg PO BID 30 Days #60 tab 06/08/21 [Rx] Bacillus Coagulans [Digestive Advantage Probiotic Chew] 1 tab PO DAILY 10/24/24 [History] Denosumab [Prolia] 60 mg SQ Q182D 10/24/24 [History] Ergocalciferol (Vitamin D2) [Drisdol (GEQ) 1,250 MCG (50,000 IU)] 2,500 mcg PO DIRECTED 10/24/24 [History] Folic Acid 1 mg PO DAILY 10/24/24 [History] Magnesium Glycinate 420 mg PO BID 10/24/24 [History] Super Digestive Enzyme 2 cap PO PC-TID 10/24/24 [History] estradioL [Estrace] 1 mg PO DAILY 10/24/24 [History] Aspirin 81 mg PO DAILY #30 tab 10/27/24 [Rx] Atorvastatin [Lipitor] 10 mg PO DAILY #30 tab 10/27/24 [Rx] Mavacamten [Camzyos] 5 mg PO DAILY #30 cap 10/27/24 [Rx] QUEtiapine [SEROquel] 25 mg PO HS #15 tab 10/27/24 [Rx] busPIRone HCl [Buspar] 7.5 mg PO 0900,1400 #60 tab 10/27/24 [Rx] Follow up Appointment(s)/Referral(s): [facility] Flight/Transport Nurse [Outside] - 1 Week [facility] [Outside] - [address] [facility] [Outside] - 1 Week Nayla Hidalgo MD [Primary Care Provider] - 1-2 days Sim Goss MD [REFERRING] - 1 Week Uriah Tapia DO [STAFF PHYSICIAN] - 1 Week Farhat Rivera MD [Medical Doctor] - 1 Week Courtney Goss MD [REFERRING] - 1 Week Roney Vargas MD [STAFF PHYSICIAN] - 1 Week Devin Crwaford DO [STAFF PHYSICIAN] - 1 Week Patient Instructions/Handouts: Chest Pain (DC), Urinary Tract Infection in Women (DC) Activity/Diet/Wound Care/Special Instructions: Vehicle Assembler recommending to continue on decreased dose of camzyos to 5mg capsule daily and follow up in the office in 4 weeks for repeat echocardiogram Follow up with Neurologist on discharge [address] Dr. or Dr. Bambi Crawford Follow up with Psychiatry on discharge Discharge/Stand Alone Forms: Community Resources, Outpatient Counseling Discharge Disposition: HOME WITH HOME HEALTH SERVICES
[2024-11-03] MEDS ORDERED: CYANOCOBALAMIN 1,000 MCG/ML 1 ML VIAL SQ SCH (09:00)
== END 2024-10-27 17:21 | disposition home health service (06) ==
LOC: EC 11:56 → UNDOADMOB 14:10 → 6NMEDSUR 14:10 → INTOOBSV 14:11 → 6NMEDSUR 14:11 → OBSVTOIN 14:11 → 6NMEDSUR 17:42 → UNDODISOB 10-27 17:21
PROVIDERS: ADMIT Internal Medicine; ATTEND Internal Medicine
PROC: 4A10X4Z Monitoring of Central Nervous Electrical Activity, External Approach (ICD-10-PCS; principal; 2024-10-25)
DX: R07.89 Other chest pain (principal); I42.9 Cardiomyopathy, unspecified; I44.7 Left bundle-branch block, unspecified; I48.0 Paroxysmal atrial fibrillation; I25.3 Aneurysm of heart; R41.3 Other amnesia; R29.810 Facial weakness; F98.5 Adult onset fluency disorder; M06.9 Rheumatoid arthritis, unspecified; M19.90 Unspecified osteoarthritis, unspecified site; E03.9 Hypothyroidism, unspecified; M79.7 Fibromyalgia; M81.0 Age-related osteoporosis without current pathological fracture; R51.9 Headache, unspecified; I34.0 Nonrheumatic mitral (valve) insufficiency; F32.A Depression, unspecified; F41.9 Anxiety disorder, unspecified; F43.10 Post-traumatic stress disorder, unspecified; F41.0 Panic disorder [episodic paroxysmal anxiety]; Z79.01 Long term (current) use of anticoagulants; Z79.890 Hormone replacement therapy; Z79.899 Other long term (current) drug therapy; Z88.1 Allergy status to other antibiotic agents; Z91.013 Allergy to seafood; Z91.041 Radiographic dye allergy status; Z91.048 Other nonmedicinal substance allergy status; Z86.14 Personal history of Methicillin resistant Staphylococcus aureus infection; Z98.84 Bariatric surgery status; Z87.01 Personal history of pneumonia (recurrent); Z86.69 Personal history of other diseases of the nervous system and sense organs; Z63.4 Disappearance and death of family member
CPT/HCPCS: 96365; 96366; 96375; 99285; 36415; 95816; 93005 ×3; 93306; 85379; 83880; 80061 ×2; 80053; 80048 ×3; 84443; 82607; 82140; 82150; 83690; 83735; 84484; 85025 ×4; 85610; 85730; 81001; 80306; 87086; 71046; 93880; 70450; G0378 ×4; J1956 ×2; J2270; 96374